=== PATIENT | female | born 1945 | race Caucasian/White ===

== ENCOUNTER 2018-06-22 08:42 | Outpatient (CLI) | payer MEDICARE, SELFPAY ==
--- NOTE | 2018-06-22 14:09 | DI.RAD_ITS ---
SYMPTOMS/DIAGNOSIS: LEFT SHOULDER PAIN, M25.512, S/P FALL IN FEBRUARY WITH WORSENING PAIN LAST 1-1/2 WEEKS LEFT SHOULDER: Five views were obtained. There are very prominent hypertrophic changes at the acromioclavicular joint. Moderate hypertrophic degenerative changes are noted at the glenohumeral joint, as well. No other focal bony or soft tissue abnormality seen.
[2018-06-22 15:22] LABS: Abs Immature Grans 0.21 k/cumm (0.0-0.09); Absolute Basophil Count 0.03 k/cumm (0.0-0.2); Absolute Eosinophil Count 0.01 k/cumm (0.0-0.7); Absolute Lymphocyte Count 1.24 k/cumm (1.2-3.4); Absolute Monocyte Count 0.15 k/cumm (0.11-0.7); Basophils % 0.3; Eosinophils % 0.1; HCT 40.1 % (36.0-46.0); HGB 13.3 g/dL (12.0-15.5); Immature Grans % 1.9; Lymphocytes % 11.1; Mean Corp. HGB Concentration 33.2 g/dL (32.0-36.0); Mean Corpuscular Hemoglobin 30.3 pg (27.0-33.0); Mean Corpuscular Volume 91.3 fL (80-95); Mean Platelet Volume 10.1 fL (8.0-11.0); Monocytes % 1.3; Neutrophils % 85.3; Platelet Count 386 x1000/uL (130-400); RBC 4.39 m/cumm (4.00-5.20); RBC Distribution Width 13.6 % (11.7-14.6); White Blood Cell Count 11.21 k/cumm (4.4-10.8)
[2018-06-22 15:24] LABS: Absolute Neutrophil Count 9.56 k/cumm (1.2-6.7)
[2018-06-22 17:04] LABS: ALT 20 U/L (12-78); AST 12 U/L (15-37); Albumin 3.8 g/dL (3.4-5.0); Alkaline Phosphatase 99 U/L (46-116); Anion Gap 14.1 mmol/L (3-11); BUN 27 mg/dL (7-18); Bilirubin, Total 0.2 mg/dL (0.2-1.0); CO2 23.9 mmol/L (21.0-32.0); CREATININE 0.79 mg/dL (0.55-1.02); Calcium 9.4 mg/dL (8.5-10.1); Chloride 100 mmol/L (98-107); Glucose 159 mg/dL (70-100); Potassium 4.4 mmol/L (3.5-5.1); Sodium 138 mmol/L (136-145); TSH (W/Ref FT4) 1.05 uIU/mL (0.358-3.74); Total Protein 7.4 g/dL (6.4-8.2)
[2018-06-23 05:16] LABS: Vitamin D 25 Total 21.7 ng/ml (30-100)
== END 2018-06-22 09:02 ==
PROVIDERS: PCP Internal Medicine; Visit Provider Internal Medicine
DX: M25.512 Pain in left shoulder (principal); M19.012 Primary osteoarthritis, left shoulder; E55.9 Vitamin D deficiency, unspecified; R07.81 Pleurodynia; R79.89 Other specified abnormal findings of blood chemistry; R52 Pain, unspecified; E03.9 Hypothyroidism, unspecified
CPT/HCPCS: 36415; 80053; 82306; 73030; 84443; 85025

== ENCOUNTER 2018-10-06 01:35 | Outpatient (CLI) | payer MEDICARE, SELFPAY ==
--- NOTE | 2018-10-06 10:52 | DI.RAD_ITS ---
SYMPTOMS/DIAGNOSIS: PAIN RT SHOULDER, M25.511 RIGHT SHOULDER: Five views were obtained. There are prominent hypertrophic degenerative changes of acromioclavicular and glenohumeral joints. No other significant bony or soft tissue abnormality seen. No evidence of a glenohumeral dislocation or fracture.
== END 2018-10-06 01:55 ==
PROVIDERS: PCP Internal Medicine; Visit Provider Internal Medicine
DX: M25.511 Pain in right shoulder (principal)
CPT/HCPCS: 73030

== ENCOUNTER 2018-10-12 01:46 | Outpatient (CLI) | payer MEDICARE, SELFPAY ==
--- NOTE | 2018-10-12 09:37 | DI.MRI_ITS ---
SYMPTOM/DIAGNOSIS: NECK PAIN, CERVICALGIA, M54.2 CERVICAL SPINE MRI: Comparison is made with exams from 2015 and 2017. T 1, T 2, STIR and FLAIR sagittal, T 2 3D sagittal and gradient echo axial sequences were performed. A small focus of high signal is again demonstrated in the anterior cervical cord at the C 6 level. No new cord lesions are identified. Degenerative disc changes are again noted at C 4-5, C 5-6 and C 6-7. At C 4-5, there is again noted to be osteophytes which project posterolaterally impinging on the right neural foramen and anterior right aspect of the thecal sac. At C 5-6, there are left laterally projecting osteophytes encroaching on the left neural foramen. At C 6-7, there are broad based osteophytes projecting laterally causing bilateral neural foraminal narrowing but no significant impingement on the anterior thecal sac. The C 2-3, C 3-4 and C 7-T 1 levels are unremarkable. Degenerative changes are also noted around the dens. There is no narrowing of the central canal at this level. IMPRESSION: 1. Small stable focus of high signal in the anterior cervical cord at the C 6 level. 2. Stable degenerative disc changes from C 4-5 through C 6-7 causing neural foraminal narrowing and some degree of central canal stenosis.
== END 2018-10-12 02:06 ==
PROVIDERS: PCP Internal Medicine; Visit Provider Internal Medicine
DX: M54.2 Cervicalgia (principal); M50.321 Other cervical disc degeneration at C4-C5 level; M50.323 Other cervical disc degeneration at C6-C7 level
CPT/HCPCS: 72141

== ENCOUNTER 2019-03-01 15:19 | Outpatient (REF) | payer MEDICARE, SELFPAY ==
--- NOTE | 2019-03-01 14:00 | SKI_PTH ---
PATIENT: Malena Limon LOC: [facility] U#:[id number] AGE/SX: 73/F ROOM: RE03/01/[address]: Kaila Keane MD : 1945 BED: DIS: 03/01/2019 SPEC #: [id number] RECD: 03/02/19 12:37 STATUS: ADRIAN REQ #: [id number] HARJIT: 03/01/19 14:[address]: Kaila Salinas DEPT: Surgical Specimen RECD BY: Consuelo George Tissues: 1 - SKIN BIOPSY(SHAVE/PUNCH) Procedures: SKIN LEVEL 4 Comments: [id number]
== END 2019-03-01 15:39 ==
LOC: LBN 15:19
PROVIDERS: PCP Internal Medicine; Visit Provider Internal Medicine
DX: L82.1 Other seborrheic keratosis (principal)
CPT/HCPCS: 88305

== ENCOUNTER 2019-08-10 13:30 | Outpatient (CLI) | payer MEDICARE, SELFPAY ==
--- NOTE | 2019-08-10 14:00 | DI.RAD_ITS ---
EXAM: XR LUMBAR SPINE COMPLETE CLINICAL HISTORY: BACK PAIN, R SI PAIN 54.9, DORSALAGIA TECHNIQUE: Five views were obtained. COMPARISON: No exams were available for comparison FINDINGS: The bones of the spine appear demineralized. There are prominent hypertrophic changes of the facet j oints, particularly in the lower lumbar spine. There appears to be a pseudospondylolisthesis of L4 o n L5, and there is also a pseudospondylolisthesis versus spondylolisthesis of L5 on S1, these are abo ut 10 percent vertebral body width and 20 percent vertebral body width, anteriorly displaced respecti vely; the changes at L5-S1 appear chronic. Chronic deformity of the superior aspect of the sacrum. There is marked loss of disc height at L4-5 and L5-S1 consistent with disc degeneration. No evidence of acute fracture. No other significant bony abnormality seen. IMPRESSION: Marked facet arthropathy of the lower lumbar spine with apparent resulting pseudospondylolisthesis of L4 on L5 and L5 on S1, chronic.
== END 2019-08-10 13:50 ==
PROVIDERS: PCP Internal Medicine; Visit Provider Internal Medicine
DX: M54.5 Low back pain (principal); M47.817 Spondylosis without myelopathy or radiculopathy, lumbosacral region; M43.17 Spondylolisthesis, lumbosacral region; M51.37 Other intervertebral disc degeneration, lumbosacral region
CPT/HCPCS: 72110

== ENCOUNTER 2019-11-22 21:08 | Emergency (ER) | payer MEDICARE, SELFPAY ==
[2019-11-22 21:23] VITALS: BP 180/92; PULSE 66; RESP 16; TEMP 36.6; O2SAT 98
--- NOTE | 2019-11-22 21:50 | ED.GENADUL_ITS ---
Discharge Plan Disposition Patient Disposition: HOME Condition: Good Discharge Details Chief Complaint: Nk/Back Pain Clinical Impression: Low back pain radiating to right leg Primary Care Provider: Darrian Casiano ED Provider: Jorge Shepherd [place] and New Rx's Prescriptions: New naproxen 375 mg tablet,delayed release (DR/EC) 375 mg PO BID Qty: 10 RF: 0 Continued esomeprazole magnesium [Nexium] 40 mg capsule,delayed release(DR/EC) 40 mg PO DAILY Qty: 30 RF: 3 Shingrix Adjuvant Component-PF Suspension 0.5 ml IM .COMPLEX Qty: 0.5 RF: 1 albuterol sulfate 90 mcg/actuation HFA aerosol inhaler 2 puff IH 6XD PRN (Reason: shortness of breath or wheezing) Qty: 18 RF: 0 cholecalciferol (vitamin D3) 125 mcg (5,000 unit) capsule 5,000 unit PO DAILY Qty: 90 RF: 3 hydrocodone-acetaminophen 5-325 mg tablet 1 tab PO BID MDD 2 pills PRN (Reason: pain, severe) Qty: 14 RF: 0 cyanocobalamin (vitamin B-12) [Vitamin B-12] 1,000 MCG tablet 1,000 mcg PO DAILY Qty: 100 RF: 4 clobetasol 0.05 % cream 1 applic Topical DAILY Qty: 60 RF: 3 levothyroxine 112 mcg tablet 112 mcg PO DAILY Qty: 90 RF: 3 tramadol 50 mg tablet 50 mg PO Q6H PRN (Reason: pain) Qty: 120 RF: 0 Discharge Instructions Instructions: Acute Low Back Pain (ED) Additional Instructions: X-ray of the right hip and pelvis unremarkable other than some arthritic change. Short course of the nonsteroidal naproxen delayed release to help with inflammation and discomfort. Hydrocodone/acetaminophen for severe pain. Contact primary care in the morning for further management and follow-up. Return to ED for neurologic changes including bladder or bowel dysfunction, numbness, weakness, inability to ambulate. Referrals: Darrian Casiano [Primary Care Provider] - Medical Decision Making Patient presenting with right lower back pain with radiation around the hip and down the leg. No specific trauma but doing moving and lifting over the last couple of days. Does have chronic pain and is prescribed Ultram by primary care. Has been prescribed Snook by primary care for exacerbations of pain. Has had worsening pain over today despite Ultram, ibuprofen and a visit to her chiropractor. There is no rash. There is no neurologic changes or deficits. She had x-ray of the LS-spine done just couple months ago which showed degenerative change of the lower lumbar spine. There is no specific injury but I will obtain right hip and pelvis x-ray given the pain that she has with movement of that lower extremity. She is almost describing neurogenic pain in the L2 dermatome. She is given IM Toradol and oral Snook. X-ray of the right hip and pelvis are negative except for degenerative change. She has not had resolution of pain but is better and actually walked to the bathroom. She reports that she is not supposed to take nonsteroidals because of GI bleed. However, that GI bleed was related to an AVM not ulcer. She reports just recently having a repeat upper endoscopy which was essentially unremarkable with no gastritis or ulceration per her report. I therefore think a short course of Naprosyn may be beneficial. She is on PPI at this time. I will also give her her to go package of Snook for use tonight. She will need to contact primary care in the morning for further management and evaluation. Instructed to return if she develops any neurologic changes, inability to walk, severe worsening pain. Medical Records Medical records reviewed: Yes I reviewed the patient's medical records. HPI General Mode of arrival: wheelchair . Date/Time Provider Initiated Documentation: 11/22/19 21:30 . Limitations to Documentation: no limitations . Information obtained by: patient, RN notes reviewed and old records reviewed . HPI Narrative: Patient presents to ED with complaint of right lower back pain radiating into her buttocks. She reports a similar issue a few months ago. She had been doing some work at her house over the last couple of days to get ready to have her first floor floors redone. She woke up this morning with pain that has become progressively worse over the course of today. She did see her chiropractor. She has taken her Ultram and even took some ibuprofen. Pain is in the low back and radiates down her buttocks as well as around the right hip. It is worse with movement. She denies abdominal pain. She denies numbness or weakness. She denies bladder or bowel symptoms. There is been no fever, cough, shortness of breath. Related Data Home Medications Medication Instructions Recorded Confirmed cyanocobalamin (vitamin B-12) 1,000 mcg PO DAILY #100 tab-cap 06/10/14 11/22/19 [Vitamin B-12] albuterol sulfate 90 mcg/actuation 2 puff IH 6XD PRN #18 gm 03/21/19 11/22/19 aerosol inhaler adjuvant AS01B (PF)vial 1 of 2 0.5 ml IM .COMPLEX #0.5 ml 06/14/19 08/07/19 esomeprazole magnesium 40 mg 40 mg PO DAILY #30 cap 06/14/19 11/22/19 capsule,delayed release clobetasol 0.05 % topical cream 1 applic TOPICAL DAILY #60 gm 07/17/19 11/22/19 cholecalciferol (vitamin D3) 125 5,000 unit PO DAILY #90 cap 08/29/19 11/22/19 mcg (5,000 unit) capsule hydrocodone 5 mg-acetaminophen 325 1 tab PO BID PRN #14 tab MDD 2 08/29/1911/21 mg tablet pills levothyroxine 112 mcg tablet 112 mcg PO DAILY #90 tab-cap NS 09/18/19 11/22/19 tramadol 50 mg tablet 50 mg PO Q6H PRN #120 tab 11/07/19 11/22/19 naproxen 375 mg PO BID #10 tab 11/22/19 Previous Rx's Medication Instructions Recorded albuterol sulfate 90 mcg/actuation 2 puff IH 6XD PRN #18 gm 03/21/19 aerosol inhaler adjuvant AS01B (PF)vial 1 of 2 0.5 ml IM .COMPLEX #0.5 ml 06/14/19 esomeprazole magnesium 40 mg 40 mg PO DAILY #30 cap 06/14/19 capsule,delayed release clobetasol 0.05 % topical cream 1 applic TOPICAL DAILY #60 gm 07/17/19 cholecalciferol (vitamin D3) 125 5,000 unit PO DAILY #90 cap 08/29/19 mcg (5,000 unit) capsule hydrocodone 5 mg-acetaminophen 325 1 tab PO BID PRN #14 tab MDD 2 08/29/19 mg tablet pills levothyroxine 112 mcg tablet 112 mcg PO DAILY #90 tab-cap NS 09/18/19 tramadol 50 mg tablet 50 mg PO Q6H PRN #120 tab 11/07/19 naproxen 375 mg PO BID #10 tab 11/22/19 Allergies Allergy/AdvReac Type Severity Reaction Status Date / Time Carbapenems Allergy Severe Verified 08/07/19 14:01 cephalexin Allergy Severe Verified 08/07/19 14:01 Cephalosporins Allergy Severe Verified 08/07/19 14:01 codeine Allergy Severe RASH Verified 08/07/19 14:01 Penicillins Allergy Severe Verified 08/07/19 14:01 Sulfa (Sulfonamide Allergy Severe Verified 08/07/19 14:01 Antibiotics) Tetracyclines Allergy Severe Verified 08/07/19 14:01 BETALACTAMS Allergy Severe Uncoded 08/07/19 14:01 General Stated Complaint: Nk/Back Pain OH: 3 Review of Systems Narrative: As documented in HPI otherwise negative as below. 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 Sister Essential hypertension Hyperlipidemia Brother Essential hypertension Grandfather Essential hypertension Heart disease Grandfather Diabetes Grandmother Stroke Grandmother No problems noted. Social History Smoking/Tobacco Use Status: Former Tobacco Use Alcohol Intake: current Alcohol Intake frequency: holidays/special occasions only Drug use: Never Do you feel safe in your relationship?: Yes Exam Narrative Exam Narrative: Vitals: Afebrile. Hypertensive but otherwise normal vitals and normal room air pulse ox. Const: WDWN elderly female in NAD lying on left side with pillow between legs. HEENT: NC/AT. Normal facial exam. Eyes: Normal conjunctiva and sclera. Neck: Supple. Trachea midline. Lungs: Normal respiratory effort. Back: No midline spinal tenderness. Minimal tenderness over right SI/pelvic region. No tenderness over right sciatic nerve. Pain with any range of motion involving right lower extremity. Neuro: A+O x 3. Normal speech, mentation. Cranial nerves II - XII grossly intact. No gross motor or sensory deficit. 5 out of 5 strength in lower extremities. No sensory deficit. No saddle anesthesia. Ext: No C/C/E. Skin: Warm and dry without rash. Course Vital Signs Vital signs: Vital Signs Temperature 97.9 F 11/22/19 21:23 Pulse 66 11/22/19 21:23 Respiratory Rate 16 11/22/19 21:23 Blood Pressure 180/92 H 11/22/19 21:23 Pulse Oximetry 98 11/22/19 21:23 Temperature 97.9 F 11/22/19 21:23 Pulse 66 11/22/19 21:23 Respiratory Rate 16 11/22/19 21:23 Blood Pressure 180/92 H 11/22/19 21:23 Blood Pressure Position Left Lateral 11/22/19 21:23 Pulse Oximetry 98 11/22/19 21:23 Oxygen Delivery Method Room Air 11/22/19 21:23 Oxygen Flow Rate 0 11/22/19 21:23 Pain Level 9 11/22/19 21:23
[2019-11-22] MEDS: Ketorolac 30 MG/ML VIAL IM (22:17)
[2019-11-22] MEDS: HYDROcodone 10/Acetaminophen 325 TAB PO (22:18)
--- NOTE | 2019-11-22 22:58 | DI.RAD_ITS ---
EXAM: XR HIP RT COMPLETE AP PELVIS INDICATION: pain/unable to bear weight. COMPARISON: No exams were available for comparison TECHNIQUE: 2D digital imaging was performed. FINDINGS: Mild bilateral narrowing of the hip joints. Mild degenerative changes in the lower lumbar spine. Sa croiliac joints and symphysis pubis are intact. Bones are normally mineralized. No acute fracture o r subluxation. The soft tissues are unremarkable. IMPRESSION: No acute fracture or dislocation. DATA REPOSITORY: RADIATION DOSE DELIVERED:
--- NOTE | 2019-11-22 23:24 | DI.VRAD_ITS ---
PROCEDURE INFORMATION: Exam: XR Right Hip with Pelvis when Performed Exam date and time: 11/22/2019 10:58 PM Age: 73 years old Clinical indication: Hip pain; Right hip; Patient HX: HX of sacrum dislocation per PT TECHNIQUE: Imaging protocol: XR Right hip with pelvis when performed. Views: 2 or 3 views. COMPARISON: No relevant prior studies available. FINDINGS: Bones/joints: Lower lumbar spine degenerative disease. Bilateral sacroiliac joints are unremarkable. Bilateral hips with mild degenerative joint space narrowing. No fracture. No dislocation. No suspicious focal bone lesions. Soft tissues: Internal pelvic soft tissues and periarticular soft tissues are unremarkable. IMPRESSION: 1. No acute traumatic disruption. 2. Bilateral hip joint with mild arthritic degeneration. 3. Lower lumbar spine degenerative disease. Dictated and Authenticated by: Percy Hardy MD. Ordering:CLEMENTE Patel MD
== END 2019-11-22 23:56 | disposition home or self-care (01) ==
PROVIDERS: Emergency Provider Emergency Medicine; PCP Family Medicine
DX: M54.16 Radiculopathy, lumbar region (principal); G89.4 Chronic pain syndrome
CPT/HCPCS: 96372; 99284; 73502; J1885; J3490

== ENCOUNTER 2020-01-02 01:33 | Outpatient (CLI) | payer MEDICARE, SELFPAY ==
--- NOTE | 2020-01-02 11:49 | DI.MAMMO_ITS ---
EXAM: MG MAMMO SCREENING CLINICAL HISTORY: screening,Z12.31 TECHNIQUE: Bilateral full field digital CC and MLO mammographic images were obtained with 3D tomosyn thesis and utilizing computer aided detection (CAD). COMPARISON: Available for comparison. FINDINGS: Masses/Architectural Distortion: None seen. Stable nodules in the upper-outer quadrant of the right b reast. Microcalcifications: No suspicious pleomorphic-type are seen. Skin Thickening/Nipple Retraction: None. IMPRESSION: 1. No significant interval change with no specific features of malignancy noted. 2. Unless there is more urgent need, screening mammography is recommended, as per [place] [place] guidelines. BI-RADS Category 1 - Negative Breast Density - Category B - Scattered areas of fibroglandular density A negative radiographic report should not delay biopsy if a dominant or clinically suspicious mass is present. Up to ten percent of cancers are not identified on mammography. A negative report may reinforce clinical impression. Adenosis and dense breasts may obscure an underlying neoplasm. False positive reports average 6 to 10%. Patient will receive a letter notifying them of these results.
== END 2020-01-02 01:53 ==
PROVIDERS: PCP Family Medicine; Visit Provider Family Medicine
DX: Z12.31 Encounter for screening mammogram for malignant neoplasm of breast (principal); N63.11 Unspecified lump in the right breast, upper outer quadrant
CPT/HCPCS: 77063; 77067

== ENCOUNTER 2020-01-09 02:34 | Outpatient (CLI) | payer MEDICARE, SELFPAY ==
[2020-01-09 14:35] LABS: ALT 24 U/L (14-59); AST 14 U/L (15-37); Albumin 3.7 g/dL (3.4-5.0); Alkaline Phosphatase 93 U/L (46-116); Anion Gap 9.7 mmol/L (3-11); BUN 16 mg/dL (7-18); Bilirubin, Total 0.2 mg/dL (0.2-1.0); CO2 25.3 mmol/L (21.0-32.0); CREATININE 0.59 mg/dL (0.55-1.02); Calcium 9.6 mg/dL (8.5-10.1); Calculated LDL 103 mg/dL (<100); Chloride 105 mmol/L (98-107); Cholesterol 173 mg/dL (<200); Glucose 98 mg/dL (74-106); HDL Cholesterol 40 mg/dL (40-60); Potassium 4.3 mmol/L (3.5-5.1); Sodium 140 mmol/L (136-145); TSH 0.75 uIU/mL (0.36-3.74); Total Protein 6.8 g/dL (6.4-8.2); Triglyceride 153 mg/dL (<150)
== END 2020-01-09 02:54 ==
PROVIDERS: PCP Family Medicine; Visit Provider Family Medicine
DX: R53.83 Other fatigue (principal); G89.4 Chronic pain syndrome; E03.9 Hypothyroidism, unspecified; J45.909 Unspecified asthma, uncomplicated
CPT/HCPCS: 36415; 80053; 80061; 84443

== ENCOUNTER → 2020-02-08 10:40 | Outpatient (BNVA) | payer MEDICARE, SELFPAY | PROVIDERS: PCP Family Medicine; Referring Provider Family Medicine; Visit Provider Physical Therapy Assistant | DX: Z12.11 Encounter for screening for malignant neoplasm of colon (principal) ==

== ENCOUNTER 2020-02-22 08:05 | Day surgery (SDC) | payer MEDICARE, SELFPAY ==
[2020-02-22 08:29] VITALS: BP 129/73; PULSE 70; RESP 18; TEMP 36.4; O2SAT 96
[2020-02-22] MEDS: Lactated Ringers 1,000 ML 80 ML IV (08:47)
--- NOTE | 2020-02-22 09:30 | BOWEL_PTH ---
PATIENT: Malena Limon LOC: [facility] U#:[id number] AGE/SX: 74/F ROOM: RE02/22/[address]: Mia Adan : 1945 BED: DIS: 02/22/2020 SPEC #: [id number] RECD: 02/22/20 12:24 STATUS: ADRIAN REQ #: [id number] HARJIT: 02/22/20 09:[address]: Mia Adan DEPT: Surgical Specimen RECD BY: Conseulo George ENTERED: 02/22/20 12:25 SP TYPE: Bowel OTHR DR: Darrian Casiano MD Tissues: 1 - BIOPSY BOWEL Procedures: GROSS AND MICRO LEVEL 4 Comments: [id number]
--- NOTE | 2020-02-22 09:45 | W.COLOREPORT ---
Date of service: 02/22/20 Time of Service: 09:45 Colonoscopy Report Date of procedure: 02/22/20 Pre-op diagnosis general: CRC screen Post-op diagnosis procedure note: other (polyp) Procedure: CE and polypectomy Surgeon: Mia Adan Anesthesia proc note operative: GETA Estimated blood loss (mL): 1 Pathology: other Disposition: same day Prep: Miralax/Dulcolax Retraction Time: 15 mins Procedure Description: After informed consent was obtained the patient was taken to the procedure room and placed in a left decubitous position. Monitors were applied and a time out was done. The patients name, date of , procedure, allergies to medications and metal in their body was reviewed. The patient was then sedated. Once sedated and comfortable a rectal exam was done. External exam was normal. Internal exam revealed a normal sphincter tone and no palpable masses. The scope was then introduced and retrofelexed. Grade I internal hemorrhoids were identified. The scope was then advanced to the cecum w/out difficulty. The TI and appendiceal orifice were identified. The prep was good. The scope was then slowly retracted over 15 minutes back into the rectum. A <5 mm polyp was removed at 40cm. The polyp was removed with a cold biting forcep No diverticula or AVMs. Patient today the scope was removed and the patient was woken up and taken back to Same day surgery in stable condition. The patient tolerated the procedure well and there were no immediate complications. Follow up: The patient should follow up in 5-10years (provided she is still healthy for anesthesia)- path pd unless they develop changes in bowel habits or other new gastrointestinal complaints.
--- NOTE | 2020-02-22 09:50 | W.PM.DSUDISC ---
Discharge Plan Discharge Details Attending Provider: Mia Adan Primary Care Provider: Darrian Casiano Home Meds and New Rx's Prescriptions: Continued esomeprazole magnesium [Nexium] 40 mg capsule,delayed release(DR/EC) 40 mg PO DAILY Qty: 30 RF: 3 Shingrix Adjuvant Component-PF Suspension 0.5 ml IM .COMPLEX Qty: 0.5 RF: 1 albuterol sulfate 90 mcg/actuation HFA aerosol inhaler 2 puff IH 6XD PRN (Reason: shortness of breath or wheezing) Qty: 18 RF: 0 cyanocobalamin (vitamin B-12) [Vitamin B-12] 1,000 MCG tablet 1,000 mcg PO DAILY Qty: 100 RF: 4 levothyroxine 112 mcg tablet 112 mcg PO DAILY Qty: 90 RF: 3 clobetasol 0.05 % cream 1 applic Topical DAILY Qty: 60 RF: 3 tramadol 50 mg tablet 50 mg PO Q6H PRN (Reason: pain) Qty: 120 RF: 2 cholecalciferol (vitamin D3) 125 mcg (5,000 unit) capsule 5,000 unit PO DAILY Qty: 90 RF: 3 naproxen 375 mg tablet,delayed release (DR/EC) 375 mg PO BID Qty: 10 RF: 0 Discontinued polyethylene glycol 3350 17 gram/dose powder 238 g PO ONCE Qty: 238 RF: 0 bisacodyl [Dulcolax (bisacodyl)] 5 mg tablet,delayed release (DR/EC) 5 mg PO ONCE Qty: 4 RF: 0 Discharge Instructions Additional Instructions: Findings:small colon polyp Follow up: will send a letter w/ results of polyp in 2-3 weeks and when to repeat the colonscopy Please call if you develop: fevers >101.5 Nausea or Vomiting Abdominal pain that is not transient DAY SURGERY UNIT POST COLONOSCOPY INSTRUCTIONS 1. Because there will be medication in your system for the next 24 hours, you may feel a little sleepy. Your coordination will be affected. Therefore: a. Do not drive or operate dangerous equipment for 24 hours. b. Do not drink alcohol beverages for 24 hours (not even beer). c. Plan to go home and rest for the day. 2. Generally there are no restrictions on your activity after a day or so has gone by, but you may feel a bit fatigued for a few days. 3 After you arrive home you may have a light meal and return to a normal diet as you can tolerate it without feeling sick to your stomach. 4. After surgery, you may feel pain or discomfort. This should be only transient, but if it persists please contact your doctor. 5. If there are any questions regarding the findings of your procedure, please feel free to contact your doctor. 6. If you are unable to contact your doctor with a problem, contact the hospital at [phone]. 7. Continue all your regular medications unless directed otherwise. I understand the above instructions and have no questions. Signature of Patient or Responsible Adult Escort Date/Time Name of Responsible Adult Escort Signature of Nurse Date/Time Activity:: No lifting over 20 pounds or strenuous activity x24 hours Equipment/Supplies:: No Equipment Needed Diet:: Small light meals x24 hours DS: Diagnosis Discharge Diagnosis (1) Adenomatous colon polyp: Status: Acute
[2020-02-22 10:10] VITALS: BP 142/72; PULSE 60; RESP 18; TEMP 36; O2SAT 99
== END 2020-02-22 10:30 | disposition home or self-care (01) ==
PROVIDERS: PCP Family Medicine; Visit Provider Surgery
PROC: 0DJD8ZZ Inspection of Lower Intestinal Tract, Via Natural or Artificial Opening Endoscopic (ICD-10-PCS; CPT 45378; principal; 2020-02-22 09:00)
DX: Z12.11 Encounter for screening for malignant neoplasm of colon (principal); D12.5 Benign neoplasm of sigmoid colon; J45.909 Unspecified asthma, uncomplicated; K21.9 Gastro-esophageal reflux disease without esophagitis
CPT/HCPCS: 45380; 88305; J2001

== ENCOUNTER → 2020-03-01 13:59 | Outpatient (BNVA) | payer MEDICARE, SELFPAY | PROVIDERS: PCP Family Medicine; Referring Provider Family Medicine; Visit Provider Surgery | DX: Z48.815 Encounter for surgical aftercare following surgery on the digestive system (principal); D12.5 Benign neoplasm of sigmoid colon | CPT/HCPCS: 99212 ==

== ENCOUNTER 2020-07-12 12:32 | Outpatient (REF) | payer MEDICARE, OTHER, SELFPAY ==
[2020-07-12 13:41] LABS: *AMPHETAMINES SCREEN URINE Negative (Negative); *BARBITURATES SCREEN URINE Negative (Negative); *BENZODIAZEPINES SCREEN URINE Negative (Negative); Cannabinoids THC Negative (Negative); Cocaine Screen,Urine Negative (Negative); METHADONE URINE SCREEN Negative (Negative); OPIATES URINE SCREEN Negative (Negative)
[2020-07-12 13:44] LABS: Tricyclic Antidepressants Negative (Negative)
[2020-07-17 19:50] LABS: O-desmethyltramadol 8559 ng/mL (Cutoff:25); Tramadol 2645 ng/mL (Cutoff:25)
== END 2020-07-12 12:33 | disposition home or self-care (01) ==
LOC: LBN 12:32
PROVIDERS: PCP Family Medicine; Visit Provider Family Medicine
DX: G89.4 Chronic pain syndrome (principal); Z79.891 Long term (current) use of opiate analgesic
CPT/HCPCS: 80307; 80373

== ENCOUNTER 2020-08-05 12:20 | Outpatient (CLI) | payer MEDICARE, OTHER, SELFPAY ==
--- NOTE | 2020-08-05 09:30 | DI.RAD_ITS ---
EXAM: XR LUMBAR SPINE COMPLETE CLINICAL HISTORY: low back pain M54.5. TECHNIQUE: 2D digital imaging was performed. COMPARISON: CR,XR XR HIP RT COMPLETE AP PELVIS from 11/22/2019 FINDINGS: There is no evidence of fracture. There is mild anterolisthesis L4 upon L5, this related to degenera tive changes in the facet joints. There is also an element of anterolisthesis of L5 upon S1. Mild d egenerative disc space narrowing at this level. Other disc spaces exhibit normal height. Mild facet degenerative changes. Sacroiliac joints appear unremarkable. There is no scoliosis. No osseous lesions. IMPRESSION: Multilevel listhesis of L4 upon L5 and L5 upon S1. There is also advanced disc space narrowing at L5-S1 level. DATA REPOSITORY: RADIATION DOSE DELIVERED:
== END 2020-08-05 12:40 ==
PROVIDERS: PCP Family Medicine; Visit Provider Emergency Medicine
DX: M43.16 Spondylolisthesis, lumbar region (principal); M51.37 Other intervertebral disc degeneration, lumbosacral region
CPT/HCPCS: 72110

== ENCOUNTER 2021-02-12 00:47 | Outpatient (CLI) | payer MEDICARE, OTHER, SELFPAY ==
[2021-02-12 11:13] LABS: Source Nasal/Nares
[2021-02-12 14:12] LABS: COVID-19 PCR Negative (Negative)
== END 2021-02-12 00:48 | disposition home or self-care (01) ==
LOC: LBO 00:47
PROVIDERS: PCP Family Medicine; Visit Provider Podiatrist
DX: Z20.822 Contact with and (suspected) exposure to COVID-19 (principal); Z01.818 Encounter for other preprocedural examination
CPT/HCPCS: 87635

== ENCOUNTER 2021-02-14 06:14 | Day surgery (SDC) | payer MEDICARE, OTHER, SELFPAY ==
[2021-02-14 06:25] VITALS: BP 125/67; PULSE 64; RESP 16; TEMP 36.4; O2SAT 96
--- NOTE | 2021-02-14 07:01 | W.PM.HP.N ---
Date of service: 02/14/21 Time of Service: 07:01 History of Present Illness History of Present Illness Chief Complaint: Symptomatic right second hammertoe Narrative: 75-year-old female with increasing discomfort associated with the right second hammertoe who desires surgical intervention and correction of deformity. [facility] Medical History Asthma Bronchospasm Calculus, kidney Chronic pain syndrome Collagenous colitis Foot pain, right Gastrointestinal bleeding UPPER GI BLEED 11/2011 SECONDARY TO Duodenal AVM Hypothyroidism Skin lesion Spondylisthesis Surgical History Appendectomy Arthroplasty of knee (~1989) bilateral History of appendectomy Replacement of total knee joint 09/02; B/L Family History Mother , 76 Personal history of malignant neoplasm MOUTH Heart disease Stroke Sister Essential hypertension Hyperlipidemia Brother Essential hypertension Lung cancer Grandfather Essential hypertension Heart disease Grandfather Diabetes Grandmother Stroke Sister No problems noted. Sister No problems noted. Sister No problems noted. Sister No problems noted. Brother No problems noted. Brother No problems noted. Brother No problems noted. Son Stroke Daughter No problems noted. Social History Smoking/Tobacco Use Status: Former Tobacco Use tobacco type: cigarettes Quit Date: 05/24/74 Tobacco: How many years used: 10 Second Hand Exposure: Yes Smoking risk assessment performed?: Yes Alcohol Intake: current Alcohol Intake frequency: a few times a week Alcohol type: beer, wine and hard liquor Drug use: Never Substance use type: does not use Household members: family Do you need help understanding health information?: Never Pets and animals: Yes Pets and animals: cat(s) and dog(s) Sexually active: No What is your relationship status?: How often do you talk on the phone with friends or family?: three or more times per week How often do you get together with friends or relatives?: three or more times per week How often do you attend tenriism or cheondoism services?: 1-3 times per year Do you belong to any clubs or organized social groups?: no Panel score (0-1 are the most socially isolated patients): 1 Evita/Advent: No preference Special evita needs: No Seatbelt use: always Helmet use: No 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 Do you feel safe at home: Yes Do you feel safe in your relationship?: Yes Meds Allergies and Home Medications Allergies Allergy/AdvReac Type Severity Reaction Status Date / Time Carbapenems Allergy Severe Skin Rash Verified 02/14/21 06:35 cephalexin Allergy Severe Skin Rash Verified 02/14/21 06:35 Cephalosporins Allergy Severe Skin Rash Verified 02/14/21 06:35 codeine Allergy Severe RASH Verified 02/14/21 06:35 Penicillins Allergy Severe Percy Verified 02/14/21 06:35 Denis Syndrome Sulfa (Sulfonamide Allergy Severe Skin Rash Verified 02/14/21 06:35 Antibiotics) Tetracyclines Allergy Severe Percy Verified 02/14/21 06:35 Denis Syndrome BETALACTAMS Allergy Severe Skin Rash Uncoded 02/14/21 06:35 Home Medications Medication Instructions Recorded Confirmed Type cyanocobalamin (vitamin B-12) 1,000 mcg PO DAILY #100 tab-cap 06/10/14 02/14/21 History [Vitamin B-12] cholecalciferol (vitamin D3) 125 5,000 unit PO DAILY #90 cap 01/22/20 02/14/21 Rx mcg (5,000 unit) capsule albuterol sulfate 90 mcg/actuation 2 puff IH 6XD PRN #18 gm 10/02/20 02/14/21 Rx aerosol inhaler levothyroxine 112 mcg tablet 112 mcg PO DAILY #90 tab-cap NS 10/09/20 02/14/21 Rx clobetasol 0.05 % topical cream 1 applic TOPICAL DAILY #60 gm 12/03/20 02/14/21 Rx celecoxib 200 mg capsule 200 mg PO DAILY #90 cap 12/24/20 02/14/21 Rx varicella-zoster glycoE [id number] 0.5 ml IM ONCE #1 ea 12/24/20 02/13/21 Rx adj(PF) 50 mcg/0.5 mL IM susp, kit tramadol 50 mg tablet 50 mg PO Q6H PRN #90 tab 02/10/21 02/14/21 Rx Exam Narrative Exam Narrative: 75-year-old female resting comfortably in no acute distress. Head is normocephalic Eyes PERRLA Hearing is adequate Uvula is midline no oral lesions noted Heart had regular rate and rhythm I detected no gallops rubs or murmurs Lung stauffer were clear Abdomen was soft, nontender Peripheral pulses minimally palpable at the ankles minus 2 out of 4 capillary fill under 3 seconds to all toes no edema Skin is grossly intact no suspicious moles or lesions Muscle groups are 5 out of 5 bilaterally Skeletal exam is remarkable for a right second hammertoe deformity with irritation noted at the PIPJ level. Semirigid contracture appreciated. Neurologically grossly intact Impressions: Symptomatic right second hammertoe Plan: Jenny is being brought to the OR for surgical repair of right second hammertoe deformity. She understands risk and complications pertaining the surgery including the potential for pain, scarring, infection, recurrence of deformity, shortening of the second toe, floating of the digit, chronic edema. No promises have been made to the final outcome of surgery. Informed consents been obtained. Results Last Vital Signs Temp 36.4 C L 02/14/21 06:25 Pulse 64 02/14/21 06:25 Resp 16 02/14/21 06:25 BP 125/67 02/14/21 06:25 Pulse Ox 96 02/14/21 06:25
[2021-02-14] MEDS: Lactated Ringers 1,000 ML 80 ML IV (07:08)
--- NOTE | 2021-02-14 07:20 | W.ANESPRE ---
General Info Date of Service Date Performed: 02/14/21 Height: 5 ft 4 in Weight: 72.1 kg Body Mass Index (BMI): 27.3 Surgical Procedure: Operation Date: 02/14/21 07:40 Proposed Procedures Side Surgeon p Arthroplasty right 2nd toe Right Evelio Bhatt DPM Actual Procedures Side Surgeon p Arthroplasty right 2nd toe Right Evelio Bhatt DPM Meds Allergies and Home Medications Allergies Allergy/AdvReac Type Severity Reaction Status Date / Time Carbapenems Allergy Severe Skin Rash Verified 02/14/21 06:35 cephalexin Allergy Severe Skin Rash Verified 02/14/21 06:35 Cephalosporins Allergy Severe Skin Rash Verified 02/14/21 06:35 codeine Allergy Severe RASH Verified 02/14/21 06:35 Penicillins Allergy Severe Percy Verified 02/14/21 06:35 Denis Syndrome Sulfa (Sulfonamide Allergy Severe Skin Rash Verified 02/14/21 06:35 Antibiotics) Tetracyclines Allergy Severe Percy Verified 02/14/21 06:35 Denis Syndrome BETALACTAMS Allergy Severe Skin Rash Uncoded 02/14/21 06:35 Home Medication Medication Instructions Recorded cyanocobalamin (vitamin B-12) 1,000 mcg PO DAILY #100 tab-cap 06/10/14 [Vitamin B-12] cholecalciferol (vitamin D3) 125 5,000 unit PO DAILY #90 cap 01/22/20 mcg (5,000 unit) capsule albuterol sulfate 90 mcg/actuation 2 puff IH 6XD PRN #18 gm 10/02/20 aerosol inhaler levothyroxine 112 mcg tablet 112 mcg PO DAILY #90 tab-cap NS 10/09/20 clobetasol 0.05 % topical cream 1 applic TOPICAL DAILY #60 gm 12/03/20 celecoxib 200 mg capsule 200 mg PO DAILY #90 cap 12/24/20 varicella-zoster glycoE vacc-[id number] 0.5 ml IM ONCE #1 ea 12/24/20 adj(PF) 50 mcg/0.5 mL IM susp, kit tramadol 50 mg tablet 50 mg PO Q6H PRN #90 tab 02/10/21 Current Visit Medications: Current Medications Generic Name Dose Route Start Last Admin Trade Name Freq PRN Reason Stop Dose Admin Sodium Chloride 500 mls @ 0 mls/hr 02/14/21 06:00 Saline 500ml Bag IV PRN PRN As Directed Clindamycin Phosphate/Dextrose 600 mg in 50 mls @ 100 mls/hr 02/14/21 06:00 Cleocin In D5w IVPB 02/14/21 16:00 PREOP RODOLFO Ringer's Solution 1,000 mls @ 80 mls/hr 02/14/21 06:00 02/14/21 07:08 IV 03/15/21 23:59 80 mls/hr INFUSION RODOLFO Administration IV Miscellaneous Supplies 1 each 02/14/21 06:00 Iv Access IV DIRECTED RODOLFO IV Miscellaneous Supplies 1 each 02/14/21 06:00 Iv Access IV 03/15/21 23:59 DIRECTED RODOLFO Povidone Iodine 0 ml 02/14/21 06:00 Povidone-Iodine Soln. 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 Trigger finger M65.30 Tubular adenoma ~02/2020 D36.9 Vitamin B 12 deficiency 06/07/14 E53.8 Lichen planus 12/04/13 L43.9 Degenerative arthritis M19.90 Cervical radiculopathy 04/09/15 M54.12 Atrophic vaginitis 06/13/15 N95.2 Status post total bilateral knee replacement Z96.653 Neck pain M54.2 Shingles B02.9 Dysphagia R13.10 Back pain M54.9 Sacro-iliac pain M53.3 Vitamin D deficiency E55.9 Chronic pain syndrome G89.4 Hypothyroidism E03.9 Asthma J45.909 Medical History Medical History Asthma Bronchospasm Calculus, kidney Chronic pain syndrome Collagenous colitis Foot pain, right Gastrointestinal bleeding UPPER GI BLEED 11/2011 SECONDARY TO Duodenal AVM Hypothyroidism Skin lesion Spondylisthesis Surgical History Surgical History Appendectomy Arthroplasty of knee (~1989) bilateral History of appendectomy Replacement of total knee joint 09/02; B/L Tobacco Smoking/Tobacco Use Status: Former Tobacco Use Tobacco: How many years used: 10 Passive smoking exposure: Yes Second hand exposure: Yes Alcohol Alcohol Intake: current Alcohol intake frequency: a few times a week Alcohol type: beer, wine and hard liquor Substance Use Substance use: Never Substance use type: does not use Vital Signs and Lab Results Vital Signs Most Recent Vital Signs in EMR: Most Recent Vital Signs Temp Pulse Resp BP Pulse Ox 36.4 C L 64 16 125/67 96 02/14/21 06:25 02/14/21 06:25 02/14/21 06:25 02/14/21 06:25 02/14/21 06:25 Lab Results Blood Type / Crossmatch: No Data to Display Complete Blood Count: No Data to Display Complete Metabolic Panel: No Data to Display Liver Function Panel: No Data to Display Coagulation Panel: No Data to Display Cardiac Panel: No Data to Display Arterial Blood Gas: No Data to Display Venous Blood Gas: No Data to Display Pancreas Panel: No Data to Display Thyroid Panel: No Data to Display Infectious Disease: Coronavirus (COVID-19)(PCR) Negative (Negative) 02/12/21 06:30 02/12/21 Coronavirus 2019 Source Nasal/Nares 02/12/21 06:30 02/12/21 Blood Cultures: No Data to Display Toxicology Panel: No Data to Display Anesthesia Assessment and Plan Anesthesia History Personal History: No History of Anesthesia Complications Family History: No Family History of Anesthesia Complications Exercise Tolerance Exercise Tolerance: Metabolic Equivalents>4 Pertinent Negatives Pertinent Negatives: No Symptoms of GERD, No Major Cardiovascular Symptoms or Complaints, No Major Pulmonary Symptoms or Complaints and No History of CVA/TIA Cardiac & Pulmonary Exam Cardiac Exam: Normal S1/S2 Heart Sounds Pulmonary Exam: Clear Bilateral Breath Sounds Airway Exam Known Difficult Airway: No Mallampati Class: 2 Mouth Opening: Normal (> 3cm) Thyromental Distance: Greater than 3 cm Neck Range of Motion: Full ROM Neck Circumference: Normal Teeth Condition: Normal Dentition and Removable Dentures/Plates Lower ASA Classification ASA Score: ASA 2 Emergency Case?: No NPO Status NPO Status: NPO Clears >2 hours, Solids >8 hours Anesthesia Plan Resuscitation Status: Full Code Anesthesia Technique: General Anesthesia Airway Planned: Natural Airway Monitors Used: Standard Monitors
[2021-02-14 07:24] VITALS: BMI 27.3
[2021-02-14] MEDS: CLINDAMYCIN 600 MG/50 ML BAG 100 MG IVPB (07:47)
[2021-02-14] MEDS: Lidocaine 1% Multi-Dose 50 ML VIAL (08:00)
[2021-02-14] MEDS: Bupivacaine 0.5% Pres-Free 30 ML VIAL (08:00)
[2021-02-14] MEDS: Dexamethasone 4 MG/ML VIAL (08:07)
--- NOTE | 2021-02-14 08:20 | W.PM.DSUDISC ---
Discharge Plan Disposition Patient Disposition: HOME Condition: Good Discharge Details Reason For Visit: Surgical repair right second hammertoe Attending Provider: Evelio Bhatt Primary Care Provider: Angie Hamm Home Meds and New Rx's Prescriptions: Continued celecoxib 200 mg capsule 200 mg PO DAILY Qty: 90 RF: 3 Shingrix (PF) 50 mcg/0.5 mL suspension for reconstitution 0.5 ml IM ONCE Qty: 1 RF: 1 clobetasol 0.05 % cream 1 applic Topical DAILY Qty: 60 RF: 3 tramadol 50 mg tablet 50 mg PO Q6H PRN (Reason: pain) Qty: 90 RF: 0 cyanocobalamin (vitamin B-12) [Vitamin B-12] 1,000 MCG tablet 1,000 mcg PO DAILY Qty: 100 RF: 4 cholecalciferol (vitamin D3) 125 mcg (5,000 unit) capsule 5,000 unit PO DAILY Qty: 90 RF: 3 albuterol sulfate 90 mcg/actuation HFA aerosol inhaler 2 puff IH 6XD PRN (Reason: shortness of breath or wheezing) Qty: 18 RF: 0 levothyroxine 112 mcg tablet 112 mcg PO DAILY Qty: 90 RF: 3 Discharge Instructions Activity:: Elevate Remove Dressings/Wound Care:: Do Not Remove Shower/Bathe:: Cover Diet:: Normal Diet Discharge Orders Discharge Orders: Discharge Order (Routine); Ordered 02/14/21 Ordered By: Evelio Bhatt DS: Diagnosis Discharge Diagnosis (1) Hammertoe of right foot: Status: Acute
--- NOTE | 2021-02-14 08:22 | ROE_ITS ---
Date of service: 02/14/21 Time of Service: 08:23 Operative Note Operative Note DATE OF PROCEDURE: 02/14/21 PRE-OP DIAGNOSIS: Right second hammertoe deformity PROCEDURE: Arthroplasty right second toe with 0.062 K wire fixation SURGEON: Evelio Bhatt Refer to Anesthesia Record, local block right second toe consisting of 9 cc 50: 50 mixture 1% lidocaine plain, 0.5% Marcaine plain ESTIMATED BLOOD LOSS: 0 PATHOLOGY: none sent TOURNIQUET TIME: 18 COMPLICATIONS: None Patient was transported to: same day Patient's condition: stable Indications: 75-year-old female with increasing pain associated with a right second hammertoe deformity opting for this surgical repair. She understands risk and complications of surgery pertaining to the potential for pain, scarring, infection, shortening of the second toe, swelling of the digit, floating of the digit, recurrence of hammertoe deformity potentially requiring revisional procedures. Informed consent been obtained no promises made to final outcome of surgery Procedure Description: Malena was brought to the operative suite placed in the supine position with a right foot prepped and draped in usual sterile podiatric fashion. The right foot was exsanguinated well-padded ankle tourniquet inflated 250 mmHg. Attention was directed to the right second toe with 2 converging semielliptical incisions were placed dorsally over the digit at the PIPJ level. The skin wedge was removed. Soft tissue mobilization was performed. A transverse tenotomy capsulotomy was performed at the PIPJ level with a #15 scalpel. The medial lateral collaterals were released and the head of proximal phalanx delivered into the wound. Degenerative changes of the articular surface of the head of the proximal phalanx and base of the middle phalanx was appreciated. With double-action bone cutting forceps the head of the proximal phalanx was resected at its surgical neck. All rough and bony edges were rasped move. The second toe was now in a rectus position although it still had a little medial drift as such a stab incision was placed dorsal medially at the second MPJ level the scalpel was advanced deep and a medial capsulotomy performed at the second MPJ. The second toe was in a more rectus and relaxed position at this time. The second toe was then stabilized with a 0.062 K wire in retrograde fashion. The wounds were copiously irrigated with normal saline. The extensor tendon was repaired over the PIPJ with simple interrupted suture 3- 0 Vicryl. The skin was then coapted with simple interrupted suture of 4-0 nylon. That includes the stab incision. 4 mg of dexamethasone phosphate was infused locally and to the superior surgical wound. Betadine ointment Xeroform gauze fluff compression dressings were applied. Tourniquet was released at approximately 18 minutes vascularity returning immediately to all toes. Debby arose from anesthetic and was transported back to the floor in good condition. Sharp and sponge counts were correct. She will be followed by myself in the office next week.
[2021-02-14 08:26] VITALS: BP 100/60; PULSE 69; RESP 16; TEMP 36; O2SAT 94
--- NOTE | 2021-02-14 08:28 | W.ANESPOSTOP ---
Postoperative Evaluation Date, Time and Location Date Performed: 02/14/21 Time Performed: 08:28 Patient Location: Day Surgery Unit Vital Signs Most Recent Imported Vital Signs: Most Recent Vital Signs Temp Pulse Resp BP Pulse Ox 36.4 C L 64 16 125/67 96 02/14/21 06:25 02/14/21 06:25 02/14/21 06:25 02/14/21 06:25 02/14/21 06:25 Most Recent Manually Entered Vital Signs: Adult Blood Pressure: 100/60 Heart Rate: 71 Respirations: 16 Oxygen Saturation (%): 97 Temperature (C): 36 C Pain Score (0-10 Scale): 0 Pain Score Most Recent Pain Score: Most Recent Pain Score Pain Level 4 02/14/21 06:25 Assessment Mental Status: Awake (Alert & Oriented to Patient Baseline) Airway and Respiratory Function: Patent airway with normal (patient baseline) respiratory exam Cardiovascular Function: Hemodynamically Stable Hydration Status: Adequately Hydrated Nausea & Vomiting: No Nausea or Vomiting Pain: Pt. Denies Any Pain Peripheral Nerve Block: Patient did not receive a nerve block
[2021-02-14 08:29] VITALS: BP 100/60; PULSE 71; RESP 16; TEMPC 36; O2SAT 97
[2021-02-14 09:07] VITALS: BP 107/62; PULSE 63; RESP 16; TEMP 36.2; O2SAT 99
== END 2021-02-14 09:25 | disposition home or self-care (01) ==
PROVIDERS: PCP Family Medicine; Visit Provider Podiatrist
PROC: (CPT 28285; principal; 2021-02-14 07:30)
DX: M20.41 Other hammer toe(s) (acquired), right foot (principal); J45.909 Unspecified asthma, uncomplicated; E03.9 Hypothyroidism, unspecified
CPT/HCPCS: 28285; J1100; J2001; J2405

== ENCOUNTER 2021-03-18 10:03 | Outpatient (CLI) | payer MEDICARE, OTHER, SELFPAY ==
--- NOTE | 2021-03-18 12:45 | DI.RAD_ITS ---
Exam(s) XR HIP RT COMPLETE AP PELVIS EXAM: XR HIP RT COMPLETE AP PELVIS INDICATION: pain of rt hip M25.551. COMPARISON: CR XR LUMBAR SPINE COMPLETE from 08/05/2020 TECHNIQUE: 2D digital imaging was performed. FINDINGS: Hip joint spaces are well maintained. There is minimal bilateral acetabular spurring. Mild spurring is seen at the SI joints. No soft tissue calcifications are visible. Severe disc space narrowing i s noted at L5-S1. IMPRESSION: Mild degenerative changes of both hips. DATA REPOSITORY: RADIATION DOSE DELIVERED:
== END 2021-03-18 10:23 ==
PROVIDERS: PCP Family Medicine; Visit Provider Physician Assistant
DX: M25.551 Pain in right hip (principal); M16.11 Unilateral primary osteoarthritis, right hip; M53.3 Sacrococcygeal disorders, not elsewhere classified
CPT/HCPCS: 73502

== ENCOUNTER → 2021-03-24 10:39 | Outpatient (BNVA) | payer MEDICARE, OTHER, SELFPAY | PROVIDERS: PCP Family Medicine; Referring Provider Family Medicine; Visit Provider Student in an Organized Health Care Education/Training Program | DX: M70.61 Trochanteric bursitis, right hip (principal); M65.342 Trigger finger, left ring finger | CPT/HCPCS: 20610; 99213; J1040 ==

== ENCOUNTER 2021-05-19 03:59 | Outpatient (CLI) | payer MEDICARE, OTHER, SELFPAY ==
[2021-05-19 19:32] LABS: Source Nasal/Nares
[2021-05-19 21:30] LABS: COVID-19 PCR Negative (Negative)
== END 2021-05-19 04:00 | disposition home or self-care (01) ==
LOC: LBO 03:59 → LBN 19:29
PROVIDERS: PCP Family Medicine; Visit Provider Student in an Organized Health Care Education/Training Program
DX: Z20.822 Contact with and (suspected) exposure to COVID-19 (principal); Z01.818 Encounter for other preprocedural examination
CPT/HCPCS: 87635

== ENCOUNTER 2021-05-20 06:21 | Day surgery (SDC) | payer MEDICARE, OTHER, SELFPAY ==
--- NOTE | 2021-05-20 06:32 | W.PM.DSUDISC ---
Documented by User: YUNI Giordano 05/20/21 06:38 Discharge Plan Disposition Patient Disposition: HOME Condition: Stable Discharge Details Reason For Visit: Left Ring Finger Trigger Finger Release Attending Provider: Balta Hidalgo Primary Care Provider: Angie Hamm Home Meds and New Rx's Prescriptions: New acetaminophen 500 mg capsule 1,000 mg PO Q8H PRN PRNQty: 15 RF: 0 hydrocodone-acetaminophen 5-325 mg tablet 1 tab PO Q6H PRNQty: 3 RF: 0 Continued celecoxib 200 mg capsule 200 mg PO DAILY Qty: 90 RF: 3 Shingrix (PF) 50 mcg/0.5 mL suspension for reconstitution 0.5 ml IM ONCE Qty: 1 RF: 1 clobetasol 0.05 % cream 1 applic Topical DAILY Qty: 60 RF: 3 tramadol 50 mg tablet 50 mg PO BID MDD 6 PRN (Reason: pain) Qty: 10 RF: 1 cyanocobalamin (vitamin B-12) [Vitamin B-12] 1,000 MCG tablet 1,000 mcg PO DAILY Qty: 100 RF: 4 cholecalciferol (vitamin D3) 125 mcg (5,000 unit) capsule 5,000 unit PO DAILY Qty: 90 RF: 3 albuterol sulfate 90 mcg/actuation HFA aerosol inhaler 2 puff IH 6XD PRN (Reason: shortness of breath or wheezing) Qty: 18 RF: 0 levothyroxine 112 mcg tablet 112 mcg PO DAILY Qty: 90 RF: 3 Discharge Instructions Stand Alone Forms: Gwen Finley Finger Release Referrals: Balta Hidalgo MD [ [facility] ST[facility]FF PHYSICIAN] - Activity:: Activity as Tolerated Remove Dressings/Wound Care:: 72 hours Shower/Bathe:: 72 hours Diet:: As Tolerated Discharge Orders Discharge Orders: Discharge Order (Routine); Ordered 05/20/21 Ordered By: Flaquita Rincon DS: Diagnosis Discharge Diagnosis (1) Trigger finger: Status: Acute Documented by User: Balta Hidalgo MD 05/20/21 07:19 Discharge Plan Disposition Patient Disposition: HOME Condition: Stable Discharge Details Reason For Visit: Left Ring Finger Trigger Finger Release Attending Provider: Balta Hidalgo Primary Care Provider: Angie Hamm Home Meds and New Rx's Prescriptions: New acetaminophen 500 mg capsule 1,000 mg PO Q8H PRN PRNQty: 15 RF: 0 hydrocodone-acetaminophen 5-325 mg tablet 1 tab PO Q6H PRNQty: 3 RF: 0 Continued celecoxib 200 mg capsule 200 mg PO DAILY Qty: 90 RF: 3 Shingrix (PF) 50 mcg/0.5 mL suspension for reconstitution 0.5 ml IM ONCE Qty: 1 RF: 1 clobetasol 0.05 % cream 1 applic Topical DAILY Qty: 60 RF: 3 tramadol 50 mg tablet 50 mg PO BID MDD 6 PRN (Reason: pain) Qty: 10 RF: 1 cyanocobalamin (vitamin B-12) [Vitamin B-12] 1,000 MCG tablet 1,000 mcg PO DAILY Qty: 100 RF: 4 cholecalciferol (vitamin D3) 125 mcg (5,000 unit) capsule 5,000 unit PO DAILY Qty: 90 RF: 3 albuterol sulfate 90 mcg/actuation HFA aerosol inhaler 2 puff IH 6XD PRN (Reason: shortness of breath or wheezing) Qty: 18 RF: 0 levothyroxine 112 mcg tablet 112 mcg PO DAILY Qty: 90 RF: 3 Discharge Instructions Stand Alone Forms: Gwen Finley Finger Release Referrals: Balta Hidalgo MD [ [facility] ST[facility]FF PHYSICIAN] - Activity:: Activity as Tolerated Remove Dressings/Wound Care:: 72 hours Shower/Bathe:: 72 hours Diet:: As Tolerated Discharge Orders Discharge Orders: Discharge Order (Routine); Ordered 05/20/21 Ordered By: Flaquita Rincon
[2021-05-20 06:37] VITALS: BP 124/70; PULSE 86; RESP 16; TEMP 36.3; O2SAT 99
[2021-05-20] MEDS: Sodium Bicarbonate 50 MEQ/50 ML VIAL (07:31)
[2021-05-20 07:38] VITALS: BP 108/62; PULSE 65; RESP 16; TEMP 36.1; O2SAT 95
--- NOTE | 2021-05-20 18:38 | W.PM.OP ---
Date of service: 05/20/21 Time of Service: 07:39 Operative Note Operative Note DATE OF PROCEDURE: 05/20/21 PRE-OP DIAGNOSIS: Left Ring Finger Trigger Finger POST-OP DIAGNOSIS: same PROCEDURE: Trigger Finger Release - Left Ring Finger SURGEON: Balta Hidalgo ANESTHESIA TYPE: Local By Surgeon Refer to Anesthesia Record ESTIMATED BLOOD LOSS: 0 PATHOLOGY: none sent TOURNIQUET TIME: 0 COMPLICATIONS: None Patient was transported to: same day Patient's condition: stable Indications: I have seen Malena in clinic for symptoms of a trigger finger. The catching, clicking, locking, and pain limited function. The diagnosis of trigger finger was evident. The symptoms had not responded to conservative measures. I discussed trigger finger release with the patient. I reviewed the risks of the procedure to include, but not limited to, bleeding, infection, pain, stiffness, incomplete release, damage to nerves or vessels, continued catching, recurrence. Despite these risks, the patient elected to proceed. Findings: There was a tightened A1 smooth which was released. The flexor tendons were inspected and the patient was able to move the finger without any catching, clicking, or locking. Procedure Description: Malena was greeted in the preoperative holding area where the correct side was identified and marked. The consent was reviewed with the patient and signed. All questions were answered. Malena was taken back to the operating room. The patient was placed into the supine position on the operating room table with the left arm on an arm board. All bony prominences were well padded. No prophylactic antibiotics were administered since this was a clean, elective hand surgical case. The left arm was then prepped with Chloraprep and draped in a standard fashion with stockinette and extremity drape. A timeout to confirm correct identity, side and site, procedure, allergies, anesthesia, and medical concerns was performed. The surgical site was marked as a longitudinal incision directly over the A1 smooth of the involved digit. This was confirmed with palpation during finger flexion. This area, overlying the metacarpal head, was then anesthetized with 1% Lidocaine. The patient tolerated this well and once the anesthetic had setup, the procedure began. A longitudinal incision was made through skin only, approximately 1cm. The deep tissues were dissected bluntly. Once the A1 smooth and flexor tendons were identified the soft tissue including neurovascular structures were retracted medially and laterally. There were no crossing structures over the A1 smooth. The proximal edge of the smooth was identified and the smooth was incised with tenotomy scissors. There was a release of the tendons once this was fully released. The tendons were then removed from the wound and inspected. Excess synovium was resected. The tendons were then returned and the patient was asked to move the finger into deep flexion and back to extension. There was no recreation of the pre-operative symptoms. The hand was then once more inspected for any A0 smooth or area of possible constriction. The wound was then irrigated and the skin was closed with a 4-0 Nylon. This was dressed with gauze and a Conform dressing. The patient tolerated the procedure well and was returned to the Same Day Surgery area in a stable condition suffering no known complication.
== END 2021-05-20 08:09 | disposition home or self-care (01) ==
PROVIDERS: PCP Family Medicine; Visit Provider Student in an Organized Health Care Education/Training Program
PROC: (CPT 26055; principal; 2021-05-20 07:30)
DX: M65.342 Trigger finger, left ring finger (principal)
CPT/HCPCS: 26055

== ENCOUNTER 2021-05-27 19:19 | Outpatient (REF) | payer OTHER, SELFPAY ==
[2021-05-27 19:29] LABS: HCT 40.1 % (36.0-46.0); HGB 12.9 g/dL (11.2-15.7); MCH 29.5 pg (27.0-33.0); MCHC 32.2 % (32.0-36.0); MCV 91.6 fL (80-95); MPV 10.9 fL (8.0-11.0); Platelet Count 330 10^3/uL (130-400); RBC 4.38 10^6/uL (3.93-5.22); RDW 13.4 % (11.7-14.6); RDW-SD 45.2 fL; WBC 8.45 10^3/uL (4.4-10.8)
[2021-05-27 20:05] LABS: ALT 22 U/L (14-59); AST 13 U/L (15-37); Albumin 3.9 g/dL (3.4-5.0); Alkaline Phosphatase 97 U/L (46-116); Anion Gap 9.8 mmol/L (3-11); BUN 23 mg/dL (7-18); Bilirubin, Total 0.5 mg/dL (0.2-1.0); CO2 26.2 mmol/L (21.0-32.0); CREATININE 0.8 mg/dL (0.55-1.02); Calcium 9.7 mg/dL (8.5-10.1); Calculated LDL 104 mg/dL (<100); Chloride 104 mmol/L (98-107); Cholesterol 186 mg/dL (<200); Glucose 95 mg/dL (74-106); HDL Cholesterol 43 mg/dL (40-60); Potassium 4.5 mmol/L (3.5-5.1); Sodium 140 mmol/L (136-145); TSH (W/Ref FT4) 0.42 uIU/mL (0.36-3.74); Triglyceride 195 mg/dL (<150); Vitamin B12 1817 pg/mL (193-986)
[2021-05-29 00:47] LABS: Vitamin D 25 Total 34.3 ng/mL (30-100)
== END 2021-05-27 19:20 | disposition home or self-care (01) ==
LOC: LBN 19:19
PROVIDERS: PCP Family Medicine; Visit Provider Family Medicine
DX: E03.9 Hypothyroidism, unspecified (principal); E53.8 Deficiency of other specified B group vitamins; E55.9 Vitamin D deficiency, unspecified; I10 Essential (primary) hypertension; M54.2 Cervicalgia; M54.50 Low back pain, unspecified
CPT/HCPCS: 80053; 80061; 82306; 85027; 82607; 84443

== ENCOUNTER → 2021-05-29 09:56 | Outpatient (BNVA) | payer OTHER, SELFPAY | PROVIDERS: PCP Family Medicine; Referring Provider Family Medicine | DX: Z47.89 Encounter for other orthopedic aftercare (principal) ==

== ENCOUNTER 2021-08-05 00:43 | Outpatient (CLI) | payer OTHER, SELFPAY ==
--- NOTE | 2021-08-05 07:30 | DI.MAMMO_ITS ---
Exam(s) MAMMO SCREENING EXAM: MAMMO SCREENING CLINICAL HISTORY: screening,z12.39 TECHNIQUE: Mammograms were interpreted according to the usual protocol including computer analysis w [employer] CAD system, tomosynthesis and C-view imaging. COMPARISON: 2011 through 2019 FINDINGS: The breasts are composed of scattered fibroglandular densities, Breast Density category B. No suspicious masses or suspicious microcalcifications are seen. No skin thickening or abnormal axillary lymph nodes are seen. There has been no significant change from prior exams. IMPRESSION: BI-RADS Category 1, Negative mammogram Yearly screening mammography is recommended. Breast Density - Category B, scattered fibroglandular densities. A negative radiographic report should not delay biopsy if a dominant or clinically suspicious mass is present. Up to ten percent of cancers are not identified on mammography. A negative report may reinforce clinical impression. Adenosis and dense breasts may obscure an underlying neoplasm. False positive reports average 6 to 10%. Patient will receive a letter notifying them of these results.
== END 2021-08-05 01:03 ==
PROVIDERS: PCP Family Medicine; Visit Provider Family Medicine
DX: Z12.31 Encounter for screening mammogram for malignant neoplasm of breast (principal)
CPT/HCPCS: 77063; 77067

== ENCOUNTER 2021-08-11 11:14 | Outpatient (REF) | payer OTHER, SELFPAY | END 2021-08-11 11:15 | disposition home or self-care (01) | LOC: LBN 11:14 | PROVIDERS: PCP Family Medicine; Visit Provider Nurse Practitioner Family | DX: R10.2 Pelvic and perineal pain (principal); R30.0 Dysuria | CPT/HCPCS: 87086 ==

== ENCOUNTER → 2021-08-27 01:35 | Outpatient (CLI) | payer OTHER, SELFPAY | PROVIDERS: PCP Family Medicine; Visit Provider Nurse Practitioner Family ==

== ENCOUNTER 2021-10-28 14:22 | Outpatient (CLI) | payer OTHER, SELFPAY ==
--- NOTE | 2021-10-28 13:45 | DI.RAD_ITS ---
Exam(s) XR SHOULDER RT COMPLETE 2+V EXAM: XR SHOULDER RT COMPLETE 2+V CLINICAL HISTORY: right shoulder pain. TECHNIQUE: 2D digital imaging was performed. Two views. COMPARISON: CR XR shoulder RT complete 2+V from 10/06/2018 FINDINGS: BONES: No acute fracture is present. No bony destructive lesion is seen. JOINTS: No dislocation present. Prominent spurring is again noted around the AC joint and at the und ersurface of the acromion. There is also prominent spurring at the greater and lesser tuberosities a nd glenohumeral joint. There is [id number] narrowing of the glenohumeral joint space. The fin dings appear stable when compared the previous exam. SOFT TISSUE: Normal. IMPRESSION: Stable degenerative changes. DATA REPOSITORY: RADIATION DOSE DELIVERED:
== END 2021-10-28 14:23 | disposition home or self-care (01) ==
LOC: DIORS 14:22
PROVIDERS: PCP Family Medicine; Referring Provider Family Medicine; Visit Provider Student in an Organized Health Care Education/Training Program
DX: M75.101 Unspecified rotator cuff tear or rupture of right shoulder, not specified as traumatic; M12.811 Other specific arthropathies, not elsewhere classified, right shoulder; M75.21 Bicipital tendinitis, right shoulder; M54.12 Radiculopathy, cervical region; M65.331 Trigger finger, right middle finger
CPT/HCPCS: 99214; 99215; 73030

== ENCOUNTER 2021-11-03 07:30 | Day surgery (SDC) | payer OTHER, SELFPAY ==
[2021-11-03] MEDS: Tropicam./Phenyleph. (1/2.5%) 5 ML BTL OD ×3 (08:17→08:40)
[2021-11-03 08:33] VITALS: BP 127/69; PULSE 64; RESP 16; TEMP 36.1; O2SAT 95
--- NOTE | 2021-11-03 08:50 | W.ANESPRE ---
General Info Date of Service Date Performed: 11/03/21 Height: 5 ft 5 in Weight: 71.8 kg Body Mass Index (BMI): 26.3 Surgical Procedure: Operation Date: 11/03/21 10:40 Proposed Procedure Side Surgeon p Cataract Extraction with IOL Implant Right Samuel Deras MD Meds Allergies and Home Medications Allergies Allergy/AdvReac Type Severity Reaction Status Date / Time Carbapenems Allergy Severe Skin Rash Verified 11/03/21 08:30 cephalexin Allergy Severe Skin Rash Verified 11/03/21 08:30 Cephalosporins Allergy Severe Skin Rash Verified 11/03/21 08:30 codeine Allergy Severe RASH Verified 11/03/21 08:30 Penicillins Allergy Severe Percy Verified 11/03/21 08:30 Denis Syndrome Sulfa (Sulfonamide Allergy Severe Skin Rash Verified 11/03/21 08:30 Antibiotics) Tetracyclines Allergy Severe Percy Verified 11/03/21 08:30 Denis Syndrome BETALACTAMS Allergy Severe Skin Rash Uncoded 11/03/21 08:30 Home Medication Medication Instructions Recorded cyanocobalamin (vitamin B-12) 1,000 mcg PO DAILY #100 tab-caps 06/10/14 1,000 mcg tablet (Vitamin B-12) cholecalciferol (vitamin D3) 125 5,000 unit PO DAILY #90 caps 01/22/20 mcg (5,000 unit) capsule albuterol sulfate 90 mcg/actuation 2 puff inhalation 6XD PRN 10/02/20 aerosol inhaler shortness of breath or wheezing #18 grams clobetasol 0.05 % topical cream 1 applic topical DAILY lichen 12/03/20 planus #60 grams celecoxib 200 mg capsule 200 mg PO DAILY #90 caps 12/24/20 acetaminophen 500 mg capsule 1,000 mg PO Q8H PRN PRN #15 caps 05/20/21 levothyroxine 112 mcg tablet 112 mcg PO DAILY #90 tab-caps 10/23/21 tramadol 50 mg tablet 50 mg PO BID PRN pain #30 tabs 10/24/21 Current Visit Medications: Current Medications Generic Name Dose Route Start Last Admin Trade Name Freq PRN Reason Stop Dose Admin Acetaminophen 1,000 mg 11/03/21 06:00 Acetaminophen 500 Mg Tab PO Q4H PRN PRN Miscellaneous Medication 0 ml 11/03/21 06:00 Prednisolone 1%, Moxifloxacin 0.5%, Nepafenac 0.1% 5ml Btl OD DIRECTED [facility] Miscellaneous Medication 0 ml 11/03/21 06:00 11/03/21 08:40 Tropicam./Phenyleph. 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 Hammertoe of right foot M20.41 Hip pain, bilateral M25.551, M25.552 Trochanteric bursitis, right hip M70.61 Digital mucinous cyst of finger of right hand M67.441 Low back pain M54.50 Rotator cuff tear arthropathy of right shoulder M75.101, M12.811 Tendonitis of long head of biceps brachii of right shoulder M75.21 Trigger middle finger of right hand M65.331 Arthritis of hand, right M19.041 Medical History Medical History (Updated 11/03/21 @ 08:26 by Mavis Islas) Bronchospasm Calculus, kidney Collagenous colitis 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 Foot pain, right Gastrointestinal bleeding UPPER GI BLEED 11/2011 SECONDARY TO Duodenal AVM Skin lesion Surgical History Surgical History Appendectomy Arthroplasty of knee (~1989) bilateral History of appendectomy Replacement of total knee joint 09/02; B/L Trigger finger (05/20/21) Status post left ring finger trigger release Tobacco Smoking/Tobacco Use Status: Former Tobacco Use Passive smoking exposure: Yes Second hand exposure: Yes Alcohol Alcohol Intake: current Alcohol intake frequency: a few times a week Alcohol type: beer, wine and hard liquor Substance Use Substance use: Never Substance use type: does not use Vital Signs and Lab Results Vital Signs Most Recent Vital Signs in EMR: Most Recent Vital Signs Temp Pulse Resp BP Pulse Ox 36.1 C L 64 16 127/69 95 11/03/21 08:33 11/03/21 08:33 11/03/21 08:33 11/03/21 08:33 11/03/21 08:33 Lab Results Blood Type / Crossmatch: No Data to Display Complete Blood Count: No Data to Display Complete Metabolic Panel: No Data to Display Liver Function Panel: No Data to Display Coagulation Panel: No Data to Display Cardiac Panel: No Data to Display Arterial Blood Gas: No Data to Display Venous Blood Gas: No Data to Display Pancreas Panel: No Data to Display Thyroid Panel: No Data to Display Infectious Disease: No Data to Display Blood Cultures: No Data to Display Toxicology Panel: No Data to Display Anesthesia Assessment and Plan Anesthesia History Personal History: No History of Anesthesia Complications Family History: No Family History of Anesthesia Complications Exercise Tolerance Exercise Tolerance: Metabolic Equivalents>4 Pertinent Negatives Pertinent Negatives: No Symptoms of GERD (Well controlled with medication ), No Major Cardiovascular Symptoms or Complaints, No Major Pulmonary Symptoms or Complaints and No History of CVA/TIA Cardiac & Pulmonary Exam Cardiac Exam: Normal S1/S2 Heart Sounds Pulmonary Exam: Clear Bilateral Breath Sounds Implantable Cardiac Device Does patient have a Pacemaker or an ICD?: No Airway Exam Known Difficult Airway: No Mallampati Class: 2 Mouth Opening: Normal (> 3cm) Thyromental Distance: Greater than 3 cm Neck Range of Motion: Full ROM Neck Circumference: Normal Teeth Condition: Normal Dentition and Removable Dentures/Plates Lower ASA Classification ASA Score: ASA 2 Emergency Case?: No NPO Status NPO Status: NPO Clears >2 hours, Solids >8 hours Anesthesia Plan Resuscitation Status: Full Code Anesthesia Technique: MAC Anesthesia Airway Planned: Natural Airway Monitors Used: Standard Monitors
[2021-11-03 08:53] VITALS: BMI 26.3
[2021-11-03] MEDS: Tetracaine 0.5% 4 ML BTL OD (09:04)
[2021-11-03] MEDS: Povidone-Iodine Ophth 30 ML BTL (09:04)
[2021-11-03] MEDS: Lidocaine 2% Jelly 6 ML SYR (09:04)
[2021-11-03] MEDS: Balanced Salt Soln.-PLUS 500 ML BAG (09:14)
[2021-11-03] MEDS: Duovisc Viscoelastic System EACH 1 EACH (09:14)
[2021-11-03 09:30] VITALS: BP 120/58; PULSE 59; RESP 16; TEMP 36.5; O2SAT 97
--- NOTE | 2021-11-03 09:32 | W.ANESPOSTOP ---
Postoperative Evaluation Date, Time and Location Date Performed: 11/03/21 Time Performed: 09:32 Patient Location: Day Surgery Unit Vital Signs Most Recent Imported Vital Signs: Most Recent Vital Signs Temp Pulse Resp BP Pulse Ox 36.1 C L 64 16 127/69 95 11/03/21 08:33 11/03/21 08:33 11/03/21 08:33 11/03/21 08:33 11/03/21 08:33 Most Recent Manually Entered Vital Signs: Adult Blood Pressure: 120/58 Heart Rate: 61 Respirations: 12 Oxygen Saturation (%): 97 Temperature (C): 36.3 C Pain Score (0-10 Scale): 0 Pain Score Most Recent Pain Score: Most Recent Pain Score Pain Level 4 11/03/21 08:33 Assessment Mental Status: Awake (Alert & Oriented to Patient Baseline) Airway and Respiratory Function: Patent airway with normal (patient baseline) respiratory exam Cardiovascular Function: Hemodynamically Stable Hydration Status: Adequately Hydrated Nausea & Vomiting: No Nausea or Vomiting Pain: Pt. Denies Any Pain Peripheral Nerve Block: Patient did not receive a nerve block
[2021-11-03 09:33] VITALS: BP 120/58; PULSE 61; RESP 12; TEMPC 36.3; O2SAT 97
--- NOTE | 2021-11-03 09:34 | W.PM.DSUDISC ---
Discharge Plan Disposition Patient Disposition: HOME Condition: Good Discharge Details Attending Provider: Samuel Deras Primary Care Provider: Angie Hamm Home Meds and New Rx's Prescriptions: No Action celecoxib 200 mg capsule 200 mg PO DAILY Qty: 90 3RF clobetasol 0.05 % cream 1 applic Topical DAILY Qty: 60 3RF Rx Instructions: Apply a small amount to vulva daily tramadol 50 mg tablet 50 mg PO BID MDD 6 PRN (Reason: pain) Qty: 30 0RF cyanocobalamin (vitamin B-12) [Vitamin B-12] 1,000 MCG tablet 1,000 mcg PO DAILY Qty: 100 cholecalciferol (vitamin D3) 125 mcg (5,000 unit) capsule 5,000 unit PO DAILY Qty: 90 3RF albuterol sulfate 90 mcg/actuation HFA aerosol inhaler 2 puff IH 6XD PRN (Reason: shortness of breath or wheezing) Qty: 18 0RF levothyroxine 112 mcg tablet 112 mcg PO DAILY Qty: 90 3RF Rx Instructions: Brand name Synthroid medically necessary acetaminophen 500 mg capsule 1,000 mg PO Q8H PRN PRNQty: 15 0RF Discharge Instructions Stand Alone Forms: Post-op Topical Cataract, Jan Mixon (DSU) Discharge Orders Discharge Orders: Discharge Order (Routine); Ordered 11/03/21 Ordered By: Samuel Deras DS: Diagnosis Discharge Diagnosis (1) Cortical cataract of right eye: Status: Resolved (2) Posterior subcapsular age-related cataract, right eye: Status: Resolved (3) Nuclear sclerotic cataract of right eye: Status: Resolved
--- NOTE | 2021-11-03 09:35 | W.PM.OP ---
Date of service: 11/03/21 Time of Service: 09:35 Operative Note Operative Note DATE OF PROCEDURE: 11/03/21 PRE-OP DIAGNOSIS: Nuclear/cortical/posterior subcapsular cataract, right eye POST-OP DIAGNOSIS: same PROCEDURE: Cataract extraction using phacoemulsification with intraocular lens implant, right eye SURGEON: Samuel Deras ANESTHESIA TYPE: Local By Surgeon and MAC Refer to Anesthesia Record ESTIMATED BLOOD LOSS: 0 PATHOLOGY: none sent COMPLICATIONS: None Patient was transported to: same day Patient's condition: stable Implants: Denis & Denis/DEVI Tecnis [id number] Indications: Progressive visual loss due to cataract, right eye Procedure Description: CATARACT SURGERY OPERATIVE REPORT PREOPERATIVE DIAGNOSIS: 1. Nuclear/cortical/posterior subcapsular cataract, right eye POSTOPERATIVE DIAGNOSIS: Same OPERATION: 1. Cataract extraction using phacoemulsification with posterior chamber intraocular lens implant, right eye. 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 The option of cataract surgery was offered to the patient and she felt she was symptomatic at that she wished to proceed. PROCEDURE: The correct surgical eye was identified and marked as the right eye and the pupil was dilated in the preoperative area using mydriatics and cycloplegics. The dilated pupil size was 6.5 mm. She elected to proceed without oral sedation. The patient was brought to the operating room where cardiopulmonary monitoring was instituted and surgical time-out was performed, confirming the correct operative eye and IOL power. Topical anesthesia was administered and ophthalmic povidone-iodine 5% was instilled into the conjunctival fornices. Lidocaine gel was applied to the cornea and the crescencio-ocular area was prepped with Betadine 10% solution and draped in the usual sterile fashion for intraocular surgery, including an aperture drape. A Tegaderm transparent film dressing was cut in half and used to cover the lashes and lid margins. Care was taken to sequester the lashes and lid margins under the Tegaderm dressing. A lid speculum was placed between the lids of the operative eye and the Esteban [employer] Revalia operating microscope was maneuvered into position. Mario scissors were then used to make a conjunctival buttonhole approximately 6mm posterior to the limbus in the inferonasal quadrant. Blunt dissection was carried out to expose bare sclera, and a blunt-tipped sub-tenon?s anesthesia cannula was introduced and passed posteriorly along the globe where non-preserved plain lidocaine was injected into posterior sub-Tenon?s space. A sideport knife was used to make a paracentesis port inferotemporally. Intraocular phenylephrine/lidocaine was injected into the anterior chamber. The anterior chamber was filled with viscoelastic. A 2.4mm keratome knife was used to construct a 2-plane near-clear corneal tunnel extending 2.0mm into clear cornea superiortemporally. A flap was raised on the anterior capsule and capsulorhexis forceps were used to complete a continuous curvilinear capsulorhexis of 5.0 mm. Balanced salt solution was then used to perform cortical cleaving hydrodissection and nuclear hydrodelineation until the lens could be freely rotated within the capsular bag. The lens nucleus was then disassembled and removed within the capsular bag and iris plane using phacoemulsification. Residual cortical material was removed using the I/A handpiece. The posterior capsule was carefully polished to remove as much residual lens epithelial cells as safely possible. The capsular bag was then inflated and the anterior chamber deepened with viscoelastic. The lens implant described above was inserted into the capsular bag using the DEVI [employer] Injector. A Kuglen hook was used to dial the IOL into position. Residual viscoelastic was then removed first from posterior to the IOL, then from the anterior chamber using the I/A handpiece. The lens implant was noted to center nicely within the capsular bag. The incisions were stromally hydrated, and the anterior chamber was reformed using BSS. Then 0.5cc of moxifloxacin 1.0mg/ml were injected into the capsular bag and anterior chamber. The incisions were checked with a Weck spear and found to be secure. Several drops of ophthalmic povidone-iodine 5% were then applied to the eye followed by two drops of Imprimis combination prednisolone/moxifloxacin/nepafenac solution. The drapes were removed and a clear plastic protective eye shield was placed over the eye. The patient was then returned to Same Day Surgery in stable condition.
== END 2021-11-03 10:03 | disposition home or self-care (01) ==
PROVIDERS: PCP Family Medicine; Visit Provider Ophthalmology
PROC: (CPT 66984; principal; 2021-11-03 10:30)
DX: H25.041 Posterior subcapsular polar age-related cataract, right eye (principal); E03.9 Hypothyroidism, unspecified; D53.8 Other specified nutritional anemias
CPT/HCPCS: 66984; V2632

== ENCOUNTER 2021-11-12 01:29 | Outpatient (CLI) | payer OTHER, SELFPAY ==
--- NOTE | 2021-11-12 07:15 | DI.CT_ITS ---
Exam(s) CT UPPER EXTREMITY RT WO EXAM: CT UPPER EXTREMITY RT WO CLINICAL HISTORY: surgery planning, ARTHRITIS RT GLENOHUMERAL JOINT, OA RT SHOULDER. TECHNIQUE: Imaging Protocol: Axial computed tomography images with coronal and sagittal reformatted images were created and reviewed. COMPARISON: CR XR SHOULDER RT COMPLETE 2+V from 10/28/2021 FINDINGS: The examination was performed for pre diagnostic surgical planning. Bones: The osseous structures and articular surfaces are intact. Bony alignment is satisfactory. N o cellulitic or osteomyelitic changes are identified. Moderately severe degenerative changes are see n at the glenohumeral joint with joint space narrowing and periarticular spurring. There are moderat e degenerative changes seen at the acromioclavicular joint. No lytic or sclerotic lesions are identi fied. Soft Tissues: There is a 5 mm nodule in the right upper lobe. IMPRESSION: 1. 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 2. 5 mm nodule in the right upper lobe. In low risk patients, optional follow-up CT scan in 12 month s may be obtained. In high risk patients (history of smoking or other risk factors), an optional CT scan in 12 months may be obtained. (Dionte et al, 2017). RADIATION DOSE DELIVERED: 677.98mGy.cm Total DLP 677.98mGy.cm Total DLP DATA REPOSITORY: All CT scans at this facility are submitted to the National Radiology Data Registry (NRDR) Dose Index Registry (DIR) with the [employer] (ACR). RADIATION OPTIMIZATION: All CT scans at this facility use at least one of these dose optimization te chniques: automated exposure control; mA and/or kV adjustment per patient size (includes targeted exa ms where dose is matched to clinical indication); or iterative reconstruction.
== END 2021-11-12 01:49 ==
PROVIDERS: PCP Family Medicine; Visit Provider Student in an Organized Health Care Education/Training Program
DX: M19.011 Primary osteoarthritis, right shoulder (principal); R91.1 Solitary pulmonary nodule
CPT/HCPCS: 73200

== ENCOUNTER 2021-11-17 08:51 | Day surgery (SDC) | payer OTHER, SELFPAY ==
[2021-11-17 09:15] VITALS: BP 112/69; PULSE 65; RESP 16; TEMP 36.4; O2SAT 98
[2021-11-17] MEDS: Tropicam./Phenyleph. (1/2.5%) 5 ML BTL OS ×3 (09:32→09:46)
--- NOTE | 2021-11-17 10:08 | ANES.PREOP_ITS ---
General Info Date of Service Date Performed: 11/17/21 Height: 5 ft 5 in Weight: 71.9 kg Body Mass Index (BMI): 26.4 Surgical Procedure: Operation Date: 11/17/21 11:40 Proposed Procedure Side Surgeon p Cataract Extraction with IOL Implant Left Samuel Deras MD Meds Allergies and Home Medications Allergies Allergy/AdvReac Type Severity Reaction Status Date / Time Carbapenems Allergy Severe Skin Rash Verified 11/17/21 09:25 cephalexin Allergy Severe Skin Rash Verified 11/17/21 09:25 Cephalosporins Allergy Severe Skin Rash Verified 11/17/21 09:25 codeine Allergy Severe RASH Verified 11/17/21 09:25 Penicillins Allergy Severe Percy Verified 11/17/21 09:25 Denis Syndrome Sulfa (Sulfonamide Allergy Severe Skin Rash Verified 11/17/21 09:25 Antibiotics) Tetracyclines Allergy Severe Percy Verified 11/17/21 09:25 Denis Syndrome BETALACTAMS Allergy Severe Skin Rash Uncoded 11/17/21 09:25 Home Medication Medication Instructions Recorded cyanocobalamin (vitamin B-12) 1,000 mcg PO DAILY #100 tab-caps 06/10/14 1,000 mcg tablet (Vitamin B-12) cholecalciferol (vitamin D3) 125 5,000 unit PO DAILY #90 caps 01/22/20 mcg (5,000 unit) capsule albuterol sulfate 90 mcg/actuation 2 puff inhalation 6XD PRN 10/02/20 aerosol inhaler shortness of breath or wheezing #18 grams clobetasol 0.05 % topical cream 1 applic topical DAILY lichen 12/03/20 planus #60 grams celecoxib 200 mg capsule 200 mg PO DAILY #90 caps 12/24/20 acetaminophen 500 mg capsule 1,000 mg PO Q8H PRN PRN #15 caps 05/20/21 levothyroxine 112 mcg tablet 112 mcg PO DAILY #90 tab-caps 10/23/21 tramadol 50 mg tablet 50 mg PO BID PRN pain #30 tabs 10/24/21 Current Visit Medications: Current Medications Generic Name Dose Route Start Last Admin Trade Name Freq PRN Reason Stop Dose Admin Acetaminophen 1,000 mg 11/17/21 06:00 Acetaminophen 500 Mg Tab PO Q4H PRN PRN Miscellaneous Medication 0 ml 11/17/21 06:00 Prednisolone 1%, Moxifloxacin 0.5%, Nepafenac 0.1% 5ml Btl OS DIRECTED [facility] Miscellaneous Medication 0 ml 11/17/21 06:00 11/17/21 09:46 Tropicam./Phenyleph. 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 Hammertoe of right foot M20.41 Hip pain, bilateral M25.551, M25.552 Trochanteric bursitis, right hip M70.61 Digital mucinous cyst of finger of right hand M67.441 Low back pain M54.50 Rotator cuff tear arthropathy of right shoulder M75.101, M12.811 Tendonitis of long head of biceps brachii of right shoulder M75.21 Trigger middle finger of right hand M65.331 Arthritis of hand, right M19.041 Cortical cataract of right eye H26.9 Nuclear sclerotic cataract of right eye H25.11 Posterior subcapsular age-related cataract, right eye H25.041 Pulmonary nodule R91.1 Medical History Medical History Bronchospasm Calculus, kidney Collagenous colitis 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 Foot pain, right Gastrointestinal bleeding UPPER GI BLEED 11/2011 SECONDARY TO Duodenal AVM Skin lesion Surgical History Surgical History Appendectomy Arthroplasty of knee (~1989) bilateral History of appendectomy Hx of cataract surgery Replacement of total knee joint 09/02; B/L Trigger finger (05/20/21) Status post left ring finger trigger release Tobacco Smoking/Tobacco Use Status: Former Tobacco Use Passive smoking exposure: Yes Second hand exposure: Yes Alcohol Alcohol Intake: current Alcohol intake frequency: a few times a week Alcohol type: beer, wine and hard liquor Substance Use Substance use: Never Substance use type: does not use Vital Signs and Lab Results Vital Signs Most Recent Vital Signs in EMR: Most Recent Vital Signs Temp Pulse Resp BP Pulse Ox 36.4 C L 65 16 112/69 98 11/17/21 09:15 11/17/21 09:15 11/17/21 09:15 11/17/21 09:15 11/17/21 09:15 Lab Results Blood Type / Crossmatch: No Data to Display Complete Blood Count: No Data to Display Complete Metabolic Panel: No Data to Display Liver Function Panel: No Data to Display Coagulation Panel: No Data to Display Cardiac Panel: No Data to Display Arterial Blood Gas: No Data to Display Venous Blood Gas: No Data to Display Pancreas Panel: No Data to Display Thyroid Panel: No Data to Display Infectious Disease: No Data to Display Blood Cultures: No Data to Display Toxicology Panel: No Data to Display Anesthesia Assessment and Plan Anesthesia History Personal History: No History of Anesthesia Complications Family History: No Family History of Anesthesia Complications Exercise Tolerance Exercise Tolerance: Metabolic Equivalents>4 Pertinent Negatives Pertinent Negatives: No Major Cardiovascular Symptoms or Complaints and No Major Pulmonary Symptoms or Complaints Cardiac & Pulmonary Exam Cardiac Exam: Normal S1/S2 Heart Sounds Pulmonary Exam: Clear Bilateral Breath Sounds Implantable Cardiac Device Does patient have a Pacemaker or an ICD?: No Airway Exam Known Difficult Airway: No Mallampati Class: 2 Mouth Opening: Normal (> 3cm) Thyromental Distance: Greater than 3 cm Neck Range of Motion: Full ROM Neck Circumference: Normal Teeth Condition: Normal Dentition and Removable Dentures/Plates Lower ASA Classification ASA Score: ASA 2 Emergency Case?: No NPO Status NPO Status: NPO Clears >2 hours, Solids >8 hours Anesthesia Plan Resuscitation Status: Full Code Anesthesia Technique: MAC Anesthesia Airway Planned: Natural Airway Monitors Used: Standard Monitors
[2021-11-17 10:20] VITALS: BMI 26.4
[2021-11-17] MEDS: Lidocaine 2% Jelly 6 ML SYR (10:31)
[2021-11-17] MEDS: Tetracaine 0.5% 4 ML BTL OS (10:31)
[2021-11-17] MEDS: Balanced Salt Soln.-PLUS 500 ML BAG (10:43)
[2021-11-17] MEDS: Duovisc Viscoelastic System EACH 1 EACH (10:43)
[2021-11-17] MEDS: Povidone-Iodine Ophth 30 ML BTL (10:45)
[2021-11-17 11:00] VITALS: BP 108/73; PULSE 67; RESP 18; TEMP 36.5; O2SAT 96
--- NOTE | 2021-11-17 11:04 | W.PM.DSUDISC ---
Discharge Plan Disposition Patient Disposition: HOME Condition: Good Discharge Details Attending Provider: Samuel Deras Primary Care Provider: Angie Hamm Home Meds and New Rx's Prescriptions: No Action celecoxib 200 mg capsule 200 mg PO DAILY Qty: 90 3RF clobetasol 0.05 % cream 1 applic Topical DAILY Qty: 60 3RF Rx Instructions: Apply a small amount to vulva daily tramadol 50 mg tablet 50 mg PO BID MDD 6 PRN (Reason: pain) Qty: 30 0RF cyanocobalamin (vitamin B-12) [Vitamin B-12] 1,000 MCG tablet 1,000 mcg PO DAILY Qty: 100 cholecalciferol (vitamin D3) 125 mcg (5,000 unit) capsule 5,000 unit PO DAILY Qty: 90 3RF albuterol sulfate 90 mcg/actuation HFA aerosol inhaler 2 puff IH 6XD PRN (Reason: shortness of breath or wheezing) Qty: 18 0RF levothyroxine 112 mcg tablet 112 mcg PO DAILY Qty: 90 3RF Rx Instructions: Brand name Synthroid medically necessary acetaminophen 500 mg capsule 1,000 mg PO Q8H PRN PRNQty: 15 0RF Discharge Instructions Stand Alone Forms: Post-op Topical Cataract, Jan Mixon (DSU) Discharge Orders Discharge Orders: Discharge Order (Routine); Ordered 11/17/21 Ordered By: Samuel Deras DS: Diagnosis Discharge Diagnosis (1) Cortical cataract of left eye: Status: Resolved (2) Nuclear sclerotic cataract of left eye: Status: Resolved (3) Posterior subcapsular age-related cataract of left eye: Status: Resolved
--- NOTE | 2021-11-17 11:07 | ROE_ITS ---
Date of service: 11/17/21 Time of Service: 11:07 Operative Note Operative Note DATE OF PROCEDURE: 11/17/21 PRE-OP DIAGNOSIS: Nuclear/cortical/posterior subcapsular cataract, left eye POST-OP DIAGNOSIS: same PROCEDURE: Cataract extraction using phacoemulsification with toric intraocular lens implant, left eye SURGEON: Samuel Deras ANESTHESIA TYPE: Local By Surgeon and MAC Refer to Anesthesia Record PATHOLOGY: none sent COMPLICATIONS: None Patient was transported to: same day Patient's condition: stable Implants: Denis and Denis Vision / DEVI Tecnis DIU Toric Intraocular Lens Indications: Progressive decreased vision due to cataract, left eye, with corneal astigmatism Procedure Description: CATARACT SURGERY OPERATIVE REPORT PREOPERATIVE DIAGNOSIS: Nuclear/cortical/posterior subcapsular cataract, left eye astigmatism, left eye POSTOPERATIVE DIAGNOSIS: Same OPERATION: Cataract extraction using phacoemulsification with posterior chamber toric intraocular lens implant, left eye. IOL: IOL Fretted Instruments Inspector/Model: J&J Vision / DEVI Tecnis [id number] IOL Power: + 9.5 diopters sphere, +2.25 cylinder IOL Serial Number: [id number] Optic Diameter: 6.0mm Haptic/Overall Diameter: 13.00mm PHACO INFO: Esteban Centurion Vision System with OZil and Active Fluidics Cumulative Dispersed Energy (CDE): 10.80 seconds SURGEON: Samuel Deras MD, VLADIMIR ANESTHESIA: Monitored Anesthesia Care (MAC), with local sub-tenon's anesthetic infiltration COMPLICATIONS: None SPECIMENS: None INDICATIONS FOR PROCEDURE: The patient is a 75-year-old lady with history of myopia who has been wearing spectacles for monovision. Right eye near, left eye distance. She has a significant amount of a stigmatism in both eyes. She developed significant bilateral nuclear/cortical/posterior subcapsular cataract. She underwent cataract surgery in the right eye, postoperative refractive target for near without astigmatic correction. She has done well postoperatively with excellent near visual acuity. She now presents for cataract surgery in the left eye, targeted for distance, with a toric intraocular lens implant. The option of cataract surgery was offered to the patient and she wished to proceed. PROCEDURE: The correct surgical eye was identified and marked as the left eye and the pupil was dilated in the preoperative area using mydriatics and cycloplegics. The dilated pupil size was 6.5 mm. With the patient in the seated position, topical anesthetic was applied and a surgical marker was used to pranay the limbus at 6:00. A Surgilum Robomarker was then used to pranay the 0/180 degree reference axis. She elected to proceed without oral sedation. The patient was brought to the operating room where cardiopulmonary monitoring was instituted and surgical time-out was performed, confirming the correct operative eye and IOL power. Topical anesthesia was administered and ophthalmic povidone-iodine 5% was instilled into the conjunctival fornices. Lidocaine gel was applied to the cornea and the crescencio-ocular area was prepped with Betadine 10% solution and draped in the usual sterile fashion for intraocular surgery, including an aperture drape. A Tegaderm transparent film dressing was cut in half and used to cover the lashes and lid margins. Care was taken to sequester the lashes and lid margins under the Tegaderm dressing. A lid speculum was placed between the lids of the operative eye and the Esteban LuxOR Revaliat operating microscope was maneuvered into position. Mario scissors were then used to make a conjunctival buttonhole approximately 6mm posterior to the limbus in the inferonasal quadrant. Blunt dissection was carried out to expose bare sclera, and a blunt-tipped sub-tenon?s anesthesia cannula was introduced and passed posteriorly along the globe where non- preserved plain lidocaine was injected into posterior sub-Tenon?s space. A corneal ring gauge and axis marker were then used to pranay the 009 degree position for the main phaco incision, and the 99/189 degree axis for alignment of the toric IOL. A sideport knife was used to make a paracentesis port superiorly. Intraocular phenylephrine/lidocaine was injected into the anterior chamber. The anterior chamber was then filled with viscoelastic. A 2.4mm keratome knife was used to create a half-thickness groove at the limbus and then to construct a three-plane near-clear corneal tunnel extending 2.0mm into clear cornea at the 009 degree axis. . A flap was raised on the anterior capsule and capsulorhexis forceps were used to complete a continuous curvilinear capsulorhexis of 5.0 mm. Balanced salt solution was then used to perform cortical cleaving hydrodissection and nuclear hydrodelineation until the lens could be freely rotated within the capsular bag. The lens nucleus was then disassembled and removed within the capsular bag and iris plane using phacoemulsification. Residual cortical material was removed using the 45-degree angled silicone I/A tip with 0.3mm port. The posterior capsule was carefully polished to remove as much residual lens epithelial cells as safely possible. The capsular bag was then inflated and the anterior chamber deepened with viscoelastic. The lens implant described above was inserted into the capsular bag using the DEVI Chenega Injector. A Kuglen hook was used to dial the IOL into position, about 10 degrees counterclockwise of its final alignment. Residual viscoelastic was then removed first from posterior to the IOL, then from the anterior chamber using the I/A handpiece. The I/A handpiece was then used to dial the IOL to the target axis. The lens implant was noted to center nicely within the capsular bag, with the toric IOL ornelas aligned at the 99/189 degree axis. The incisions were stromally hydrated, and the anterior chamber was reformed using BSS. Then 0.5cc of moxifloxacin 1.0mg/ml were injected into the capsular bag and anterior chamber. The incisions were checked with a Weck spear and found to be secure. Several drops of ophthalmic povidone-iodine 5% were then applied to the eye followed by two drops of Imprimis combination prednisolone/moxifloxacin/nepafenac solution. The drapes were removed and a clear plastic protective eye shield was placed over the eye. The patient was then returned to Same Day Surgery in stable condition.
--- NOTE | 2021-11-17 11:40 | W.ANESPOSTOP ---
Postoperative Evaluation Date, Time and Location Date Performed: 11/17/21 Time Performed: 11:04 Patient Location: Day Surgery Unit Vital Signs Most Recent Imported Vital Signs: Most Recent Vital Signs Temp Pulse Resp BP Pulse Ox 36.5 C 67 18 108/73 96 11/17/21 11:00 11/17/21 11:00 11/17/21 11:00 11/17/21 11:00 11/17/21 11:00 Pain Score Most Recent Pain Score: Most Recent Pain Score Pain Level 0 11/17/21 11:00 Assessment Mental Status: Awake (Alert & Oriented to Patient Baseline) Airway and Respiratory Function: Patent airway with normal (patient baseline) respiratory exam Cardiovascular Function: Hemodynamically Stable Hydration Status: Adequately Hydrated Nausea & Vomiting: No Nausea or Vomiting Pain: Pt. Denies Any Pain Peripheral Nerve Block: Patient did not receive a nerve block
== END 2021-11-17 11:22 | disposition home or self-care (01) ==
LOC: SUR 08:51
PROVIDERS: PCP Family Medicine; Visit Provider Ophthalmology
PROC: (CPT 66984; principal; 2021-11-17 11:30)
DX: H25.042 Posterior subcapsular polar age-related cataract, left eye (principal); J45.909 Unspecified asthma, uncomplicated; E55.9 Vitamin D deficiency, unspecified
CPT/HCPCS: 66984; V2632

== ENCOUNTER 2021-11-18 09:52 | Outpatient (CLI) | payer OTHER, SELFPAY ==
--- NOTE | 2021-11-18 09:45 | RT.EKG_ITS ---
APPROVED REPORT Exam: Resting ECG Reason for Exam: Pre-operative Patient Location: O HR:71 bpm ECG Measurements Heart Rate 71 AXIS TN 104 P 52 QRSd 89 QRS 13 QT 380 T 56 QTc 414 Conclusion Sinus rhythm...normal P axis, V-rate 60- 99 Poor R wave progression, possible Anterior infarct, old...Q >40mS, abnormal ST-T, V2-V5
== END 2021-11-18 09:53 | disposition home or self-care (01) ==
LOC: DI.CM 09:55
PROVIDERS: PCP Family Medicine; Visit Provider Family Medicine
DX: Z01.810 Encounter for preprocedural cardiovascular examination (principal)
CPT/HCPCS: 93010

== ENCOUNTER → 2021-12-01 02:16 | Outpatient (CLI) | payer OTHER, SELFPAY ==
--- NOTE | 2021-12-01 15:00 | DI.US_ITS ---
APPROVED REPORT EXAM: Comprehensive 2D, Doppler, and color-flow Echocardiogram Patient Location: Out-Patient Violin Repairer: Sandra Lam RDCS (AE) Indications: Abnormal pre op EKG Other Information Study Quality: Good Conclusion Normal left ventricular wall thickness and chamber size. Estimated ejection fraction is 55 to 60%. Wall motion is normal Normal right ventricular size and systolic function Both atria are normal in size There is no structural or hemodynamically significant valvular disease Estimated right ventricular systolic pressure is 25 mmHg Wall motion Left Ventricle The left ventricle is normal size. The left ventricular systolic function is normal. The left ventric ular ejection fraction is within the normal range. There is normal left ventricular wall thickness. T here is normal LV segmental wall motion. There is no ventricular septal defect visualized. LVEF is 58 %. Right Ventricle The right ventricle is normal size. The right ventricular systolic function is normal. The RVSP is 25 .0 mmHg. Atria The left atrium size is normal. The right atrium size is normal. The interatrial septum is intact wit h no evidence for an atrial septal defect. Aortic Valve The aortic valve is normal in structure. Aortic valve is trileaflet. There is no aortic valvular sten osis. No aortic regurgitation is present. Mitral Valve The mitral valve is normal in structure. No evidence of mitral valve stenosis. Trace to mild mitral r egurgitation. Tricuspid Valve The tricuspid valve is normal in structure. There is no tricuspid valve stenosis. Trace to mild tricu spid regurgitation. Pulmonic Valve The pulmonary valve is normal in structure. There is no pulmonic valvular stenosis. There is no pulmo marleni valvular regurgitation. Great Vessels The aortic root is normal in size. The ascending aorta is normal in size. IVC is normal in size and c ollapses >50% with inspiration. Pericardium There is no pericardial effusion. 2D Dimensions IVSD d PLAX 1.04 cm F: 0.6-1.0 LV Vol A2C d MOD 77.8 mL LVPW d PLAX 1.01 cm F: 0.6 - 1.0 LV Vol A4C d MOD 79.0 mL LVID d PLAX 4.51 cm F: 3.8 - 5.2 LA vol/ BSA A2C s A-L 22.6 mL/m2 LVDs 3.00 cm F: 2.2 - 3.5 LA vol/ BSA A4C s A-L 16.5 mL/m2 Ao Root d 2.85 cm F: 2.7 - 3.3 LA Vol/ BSA Biplane s A-L 19.4 mL/m2 RA Area A4C 12.92 cm2 LA Area A4C s MOD 12.60 cm2 RA Vol/ BSA A4C s A-L 19.2 mL/m2 LA Area A2C s MOD 14.81 cm2 Ao Asc Diam d 3.30 cm F: 2.3 - 3.1 LV EF A4C MOD 56.7 % LV EF Teichholz 61.1 % LV EF A2C MOD 58.2 % LVEF (Rosas's) 57.46 % F: 54 - 74 LV EF Biplane MOD 57.5 % LV Volume 61.69 mL F: 46 - 106 SV 45.34 mL LV Volume Index 34.85 mL/m2 F: 29 - 61 SV Index 25.55 mL/m2 LV Vol Biplane MOD 78.9 mL FS 32.55 % LV Diastology MV E' medial 0.066 (>0.07 m/s) E/A Ratio 0.6 LV E/e MED 7.95 (<14) MV E Vmax 0.53 (0.4-1.3 m/s) MV E' lateral 0.075 (>0.1 m/s) MV A Vmax 0.85 (0.4-1.3 m/s) LV E/e LAT 7.05 (<14) MV E/A Ratio 0.59 MV E/E' medial 7.98 MV E/E' lateral 7.06 Aortic Valve LVOT Area 3.11 cm2 AoV Area Vmax 2.47 cm2 LVOT Vmax 1.02 m/s AoV Area/ BSA (Vmax) 1.39 cm2/m2 LVOT Mean Basil. 0.64 m/s KIRSTIN Mean Basil. 2.40 cm2 LVOT Peak Grad 4.1 mmHg KIRSTIN Mean Basil. Index 1.35 cm2/m2 LVOT Mean Grad 1.9 mmHg LVOT VTI 0.200 m LVOT Diam s 1.95 cm AoV Vmax 1.28 m/s Velocity Ratio 0.79 AoV Mean Basil. 0.83 m/s AoV Peak Grad 6.6 mmHg LVOT SV 62.28 mL AoV Mean Grad 3.2 mmHg AoV VTI 0.214 m AoV Area VTI 2.91 cm2 AoV Area/ BSA (VTI) 1.64 cm/m2 Mitral Valve MV DT 481 (160-240 msec) MV PHT 140 msec MV Area PHT 1.58 cm2 MV VTI 0.273 m MV Area VTI 2.28 (4.0-6.0 cm2) Pulmonary Valve PV Vmax 1.08 (0.5-1.5 m/s) RVOT Peak Gr. 1.26 mmHg PV Peak Grad 4.7 mmHg RVOT Mean Gr. 0.65 mmHg PV Mean Grad 2.2 mmHg RVOT VTI 0.111 m PV VTI 0.222 m RVOT Vmax 0.56 m/s Tricuspid Valve TR Peak Grad 22.0 mmHg TR Vmax 2.35 m/s RA Pressure 3.00 mmHg RVSP (TR) 25.0 mmHg
== END ==
PROVIDERS: PCP Family Medicine; Visit Provider Family Medicine
DX: R94.31 Abnormal electrocardiogram [ECG] [EKG] (principal)
CPT/HCPCS: 93306

== ENCOUNTER → 2021-12-31 13:30 | Outpatient (BNVA) | payer OTHER, SELFPAY | PROVIDERS: PCP Family Medicine; Referring Provider Family Medicine; Visit Provider Student in an Organized Health Care Education/Training Program | DX: R69 Illness, unspecified (principal) ==

== ENCOUNTER → 2022-01-15 08:48 | Outpatient (BNVA) | payer OTHER, SELFPAY | PROVIDERS: PCP Family Medicine; Referring Provider Family Medicine; Visit Provider Physician Assistant | DX: Z01.818 Encounter for other preprocedural examination (principal); M75.101 Unspecified rotator cuff tear or rupture of right shoulder, not specified as traumatic; M75.21 Bicipital tendinitis, right shoulder; M12.811 Other specific arthropathies, not elsewhere classified, right shoulder ==

== ENCOUNTER 2022-01-20 02:54 | Outpatient (CLI) | payer OTHER, SELFPAY ==
[2022-01-20 12:33] LABS: Source Nasal/Nares
[2022-01-20 15:19] LABS: COVID-19 PCR Negative (Negative)
== END 2022-01-20 02:55 | disposition home or self-care (01) ==
LOC: LBO 02:54
PROVIDERS: PCP Family Medicine; Visit Provider Student in an Organized Health Care Education/Training Program
DX: Z20.822 Contact with and (suspected) exposure to COVID-19 (principal)
CPT/HCPCS: 87635

== ENCOUNTER 2022-01-22 06:02 | Day surgery (SDC) | payer OTHER, SELFPAY ==
[2022-01-22] VITALS (10 sets, daily range): BP systolic 88–117; BP diastolic 44–72; PULSE 62–81; RESP 17–21; TEMP 36.2–36.9; O2SAT 93–97; BMI 26.6
--- NOTE | 2022-01-22 07:00 | DI.RAD_ITS ---
Exam(s) XR SHOULDER RT COMPLETE 2+V EXAM: XR SHOULDER RT COMPLETE 2+V CLINICAL HISTORY: Portable in PACU postop. TECHNIQUE: 2D digital imaging was performed. COMPARISON: No exams were available for comparison FINDINGS: Two views: Postop images reveal satisfactory position alignment of the components of the newly placed reverse pr osthesis. No fracture nor loosening evident. IMPRESSION: DATA REPOSITORY: RADIATION DOSE DELIVERED:
--- NOTE | 2022-01-22 07:08 | W.ANESPRE ---
General Info Date of Service Date Performed: 01/22/22 Height: 5 ft 4 in Weight: 70.5 kg Body Mass Index (BMI): 26.6 Surgical Procedure: Operation Date: 01/22/22 07:40 Proposed Procedure Side Surgeon p Shoulder Reverse Total Arthroplasty, Bicep Tenodesis & any other indicated procedures Right Hitesh Alvarez MD Meds Allergies and Home Medications Allergies Allergy/AdvReac Type Severity Reaction Status Date / Time Carbapenems Allergy Severe Skin Rash Verified 01/22/22 06:32 cephalexin Allergy Severe Skin Rash Verified 01/22/22 06:32 Cephalosporins Allergy Severe Skin Rash Verified 01/22/22 06:32 codeine Allergy Severe RASH Verified 01/22/22 06:32 Penicillins Allergy Severe Percy Verified 01/22/22 06:32 Denis Syndrome Sulfa (Sulfonamide Allergy Severe Skin Rash Verified 01/22/22 06:32 Antibiotics) Tetracyclines Allergy Severe Percy Verified 01/22/22 06:32 Denis Syndrome BETALACTAMS Allergy Severe Skin Rash Uncoded 01/22/22 06:32 Home Medication Medication Instructions Recorded cyanocobalamin (vitamin B-12) 1,000 mcg PO DAILY #100 tab-caps 06/10/14 1,000 mcg tablet (Vitamin B-12) cholecalciferol (vitamin D3) 125 5,000 unit PO DAILY #90 caps 01/22/20 mcg (5,000 unit) capsule albuterol sulfate 90 mcg/actuation 2 puff inhalation 6XD PRN 10/02/20 aerosol inhaler shortness of breath or wheezing #18 grams clobetasol 0.05 % topical cream 1 applic topical DAILY lichen 12/03/20 planus #60 grams acetaminophen 500 mg capsule 1,000 mg PO Q8H PRN PRN #15 caps 05/20/21 levothyroxine 112 mcg tablet 112 mcg PO DAILY #90 tab-caps 10/23/21 celecoxib 200 mg capsule 200 mg PO DAILY #90 caps 12/21/21 aspirin 81 mg tablet,delayed 81 mg PO DAILY Prevent blood clot 01/22/22 release 14 days #14 tabs oxycodone 5 mg tablet 5 - 10 mg PO Q4H PRN moderate to 01/22/22 severe pain #18 tabs Current Visit Medications: Current Medications Generic Name Dose Route Start Last Admin Trade Name Freq PRN Reason Stop Dose Admin Ringer's Solution 1,000 mls @ 60 mls/hr 01/22/22 06:00 IV 02/20/22 23:59 INFUSION RODOLFO Cefazolin Sodium/Dextrose 2 gm in 50 mls @ 100 mls/hr 01/22/22 06:00 Ancef Duplex IVPB 01/22/22 16:00 PREOP RODOLFO Tranexamic Acid 1,000 mg/ 60 mls @ 360 mls/hr 01/22/22 06:00 Sodium Chloride IVPB 01/22/22 18:00 PREOP RODOLFO IV Miscellaneous Supplies 1 each 01/22/22 06:00 Iv Access IV 02/20/22 23:59 DIRECTED RODOLFO Lactobacillus Acidophilus/Casei 1 cap 01/23/22 08:30 L. 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 Hypothyroidism E03.9 Degenerative arthritis M19.90 Cervical radiculopathy 04/09/15 M54.12 Atrophic vaginitis 06/13/15 N95.2 Asthma J45.909 Neck pain M54.2 Shingles B02.9 Vitamin D deficiency E55.9 Tubular adenoma ~02/2020 D36.9 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 Hammertoe of right foot M20.41 Hip pain, bilateral M25.551, M25.552 Trochanteric bursitis, right hip M70.61 Digital mucinous cyst of finger of right hand M67.441 Low back pain M54.50 Rotator cuff tear arthropathy of right shoulder M75.101, M12.811 Tendonitis of long head of biceps brachii of right shoulder M75.21 Trigger middle finger of right hand M65.331 Arthritis of hand, right M19.041 Cortical cataract of right eye H26.9 Nuclear sclerotic cataract of right eye H25.11 Posterior subcapsular age-related cataract, right eye H25.041 Pulmonary nodule R91.1 Cortical cataract of left eye H26.9 Nuclear sclerotic cataract of left eye H25.12 Posterior subcapsular age-related cataract of left eye H25.042 Abnormal EKG R94.31 No-show for appointment Z53.29 Arthritis of right glenohumeral joint M19.011 Medical History Medical History Bronchospasm Calculus, kidney Collagenous colitis 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 Foot pain, right Gastrointestinal bleeding UPPER GI BLEED 11/2011 SECONDARY TO Duodenal AVM Skin lesion Surgical History Surgical History (Updated 01/22/22 @ 06:31 by Chelsy Ortiz RN) Appendectomy Arthroplasty of knee (~1989) bilateral History of appendectomy Hx of cataract surgery Hx of hammer toe correction x2 Replacement of total knee joint 09/02; B/L Trigger finger (05/20/21) Status post left ring finger trigger release Tobacco Smoking/Tobacco Use Status: Former Tobacco Use Passive smoking exposure: Yes Second hand exposure: Yes Alcohol Alcohol Intake: current Alcohol intake frequency: a few times a week Alcohol type: beer, wine and hard liquor Substance Use Substance use: Never Substance use type: does not use Vital Signs and Lab Results Vital Signs Most Recent Vital Signs in EMR: Most Recent Vital Signs Temp Pulse Resp BP Pulse Ox 36.6 C 67 17 104/71 97 01/22/22 06:18 01/22/22 06:18 01/22/22 06:18 01/22/22 06:18 01/22/22 06:18 Lab Results Blood Type / Crossmatch: No Data to Display Complete Blood Count: No Data to Display Complete Metabolic Panel: No Data to Display Liver Function Panel: No Data to Display Coagulation Panel: No Data to Display Cardiac Panel: No Data to Display Arterial Blood Gas: No Data to Display Venous Blood Gas: No Data to Display Pancreas Panel: No Data to Display Thyroid Panel: No Data to Display Infectious Disease: Coronavirus (COVID-19)(PCR) Negative (Negative) 01/20/22 10:12 Coronavirus 2019 Source Nasal/Nares 01/20/22 10:12 Blood Cultures: No Data to Display Toxicology Panel: No Data to Display Imaging and Studies Imaging and Studies Study information below may be from another EMR and interpreted by another provider. Please see original notes in EMR for more complete details. EKG Summary: DATE/TIME OF SERVICE: 11/18/21 1001 : 1945PERFORMING LOCATION: [facility] APPROVED REPORT Exam: Resting ECG Reason for Exam: Pre-operative Patient Location: O HR:71 bpm ECG Measurements Heart Rate 71 AXIS MO 104 P 52 QRSd 89 QRS 13 QT 380 T56 QTc 414 Conclusion Sinus rhythm...normal P axis, V-rate 60- 99 Poor R wave progression, possible Anterior infarct, old...Q >40mS, abnormal ST-T, V2-V5 Anesthesia Assessment and Plan Anesthesia History Personal History: No History of Anesthesia Complications Family History: No Family History of Anesthesia Complications Exercise Tolerance Exercise Tolerance: Metabolic Equivalents>4 Pertinent Negatives Pertinent Negatives: No Symptoms of GERD and No Major Cardiovascular Symptoms or Complaints Cardiac & Pulmonary Exam Cardiac Exam: Normal S1/S2 Heart Sounds Pulmonary Exam: Clear Bilateral Breath Sounds Implantable Cardiac Device Does patient have a Pacemaker or an ICD?: No Airway Exam Known Difficult Airway: No Mallampati Class: 2 Mouth Opening: Normal (> 3cm) Thyromental Distance: Greater than 3 cm Neck Range of Motion: Full ROM Neck Circumference: Normal Teeth Condition: Normal Dentition ASA Classification ASA Score: ASA 2 Emergency Case?: No NPO Status NPO Status: NPO Clears >2 hours, Solids >8 hours Anesthesia Plan Resuscitation Status: Full Code Anesthesia Technique: General Anesthesia Airway Planned: Endotracheal Tube Pain Management: Surgeon and patient request nerve block Monitors Used: Standard Monitors
[2022-01-22] MEDS: Lactated Ringers 1,000 ML 60 ML IV (07:14)
[2022-01-22] MEDS: ceFAZolin 2 GM/50 ML BAG IVPB (07:45)
--- NOTE | 2022-01-22 08:00 | W.PM.OP ---
Operative Note Operative Note DATE OF PROCEDURE: 01/22/22 PRE-OP DIAGNOSIS: Right: 1. Rotator cuff arthropathy 2. End-stage glenohumeral arthritis 3. Long head of the biceps tendinopathy POST-OP DIAGNOSIS: same PROCEDURE: Right: 1. Reverse total shoulder arthroplasty, CPT # 82884 2. Open biceps tenodesis, CPT # 52131 The regulatory assistant was medically required as this procedure involves retraction, protection of neurovascular structures, and manipulation of multiple instruments and implants at the same time, which cannot be done without a skilled regulatory assistant. SURGEON: Hitesh Alvarez EYELET MACHINE OPERATOR: Bert Carmona ANESTHESIA TYPE: Local By Surgeon, General LMA/ETT and Primary Nerve Block Refer to Anesthesia Record ESTIMATED BLOOD LOSS: 75 Patient was transported to: PACU Patient's condition: stable Implants: [employer] modular glenoid system baseplate 24 mm 10 degree full wedge [employer] modular glenoid system central post 20 mm [employer] modular glenoid system peripheral locking screws 36 mm inferior, 24 mm superior, 16 mm posterior, 16 mm anterior [employer] modular glenoid system glenosphere 36 +4 mm lateralized [employer] humeral stem 135 degrees size 6 [employer] suture cup size 36 central [employer] humeral insert size 36+6 mm Indications: Please see complete medical record for details. Findings: Significant long head biceps tenosynovitis, low?grade tearing subscapularis and high?grade tearing thinning and deficient superior rotator cuff, and complete glenohumeral cartilage loss. Procedure Description: In the operating room, general anesthesia was induced. The patient was positioned beachchair on the operating room table. All bony prominences were well-padded. Preoperative antibiotics were administered. Cefazolin 2 g was administered slowly without skin rash or issue. The shoulder was prepped and draped in the usual sterile fashion for shoulder arthroplasty. The correct patient, procedure, and side of the procedure were all verified prior to incision. The deltopectoral approach was taken to the anterior shoulder. Care was taken to bluntly dissect the interval between the deltoid and pectoralis major muscles and to identify the cephalic vein within its fat stripe. The the vein was mobilized laterally. Subdeltoid space and conjoined tendon were freed of adhesions. The long head of the biceps tendon was identified just lateral to the lesser tuberosity. The uppermost margin of the pectoralis major tendon was released from the proximal humerus. The long head of the biceps tendon was tenodesed in situ using SutureTape in a wzrcty-by-ikqxb fashion securing it superior margin the pectoralis major tendon. The biceps tendon was amputated and followed proximally to identify the rotator interval. A subscapularis peel was performed taking care to release the entire tendon in a full-thickness fashion from superior to inferior and lateral to medial while bringing the arm gradually into external rotation. Care was taken to avoid the axillary nerve by only working on the bone inferiorly and medially. The subscapularis was tagged using SutureTape in a Giovanni-Juanito fashion and traction used confirm appropriate mobilization of the subscapularis tendon after gentle blunt dissection was used to free up the space anterior and posterior to it. The supraspinatus and infraspinatus were identified and debrided largely from the greater tuberosity given the high?grade tearing and minimal structural remnant present. Appropriate coagulation was achieved especially interiorly. The anatomic neck was cut using an oscillating saw with the humeral head bone brought back table in case there was a need for future bone grafting. The proximal humeral protection plate was used to provisionally confirm suture cup and glenosphere size. Attention was then turned to the glenoid and retractors were placed and a circumferential release performed using the long head of the biceps remnant to remove soft tissue about the glenoid rim. Care was taken inferiorly to work on bone only between 5 and 7:00 o'clock and bluntly elevate tissues inferiorly. The VIP guide was placed on the glenoid and used to confirm placement and trajectory of the central guidepin. The guidepin was inserted and advanced just through the far cortex ensuring adequate central fixation length. Depth gauge was used to confirm length. The defect mechanical and auto body car checker was used, marking rotation for the augment superiorly given the largely superior inclination and inferior placement of the baseplate on the glenoid. The eccentric reamer was then used carefully preparing the glenoid. The appropriate post drill was then done and guide wire removed. The baseplate was impacted and fully compressed onto the glenoid surface maintaining appropriate orientation. The locking guide was then used to drill and place appropriately lengthed inferior, superior, anterior, and posterior screws. The vsfq-dfb-tymvcifay reamer was used to confirm adequate peripheral reaming. The glenosphere was applied with the separator inserter and then impacted to engage the Rae taper. It was then locked with appropriate countersinking of the setscrew. The glenosphere was inspected and found to have good fit, appropriate positioning, and no soft tissue or bony impingement. Attention was then turned back to the proximal humerus, which was delivered from the wound and maintained in external rotation. Reamers were started appropriately posterior to the bicipital groove taking care to maintain in line approach with the humeral canal. Sequential reaming was done from size 5 up to size 7. Next, the broaches were sequentially used to open the proximal humerus starting with a size 5 and going up to size 6 and sunk to the appropriate depth while maintaining approximately 30 degrees retroversion. There was good metaphyseal fit and rotational control of the proximal humerus with this size. The central offset guide was used to ream for the suture cup. The humeral trial cup was connected. Trialing was commenced with +3 mm liner. The shoulder was reduced and taken through range of motion. Trial components were built up to +6 mm liner to achieve good stability and appropriate tension on the deltoid and conjoined tension. The trial components were removed from the proximal humerus. The wound was copiously irrigated with normal saline. A 2 mm drill was used to drill 2 drill holes in the bicipital groove for later subscapularis repair. The the proximal humeral stem and suture cup were assembled and brought over the proximal humerus. Suture tapes were placed superiorly inferiorly at the medial and lateral aspect of the suture cup. The lateral tapes were brought out the drill holes. The humeral component and suture cup were impacted into place. The trial liner was added, and the shoulder was reduced and range of motion, stability, and tension confirmed to be appropriate. The final +6 mm liner was then connected, and range of motion, stability, and tension confirmed. The shoulder was copiously irrigated with Betadine and normal saline. Vancomycin powder was distributed deeply about the shoulder and through subcutaneous tissues. The arm was placed in about 30 degrees of external rotation. The subscapularis was reduced and repaired using the addie caban StureTape in a speed bridge type configuration. The arm was taken into more external rotation without any displacement of the subscapularis repair. The deltopectoral interval was well approximated. Subcutaneous tissue was irrigated then closed using 2-0 Monocryl in a buried interrupted fashion. Skin was closed using 3-0 Monocryl in a buried subcuticular fashion. Skin glue was applied to the incision. A silver impregnated bandage was placed over the incision. The extremity was placed into a shoulder immobilizer. The patient awoke from anesthesia without complication and was taken to the recovery room in stable condition.
[2022-01-22] MEDS: Bupivacaine 0.25% Pres-Free W/EPI 30 ML VIAL (08:26)
--- NOTE | 2022-01-22 09:02 | W.ANESNERVE ---
Nerve Block Single Injection Procedure Date and Time Date Performed: 01/22/22 Procedure Start: 07:15 Location Where Procedure Performed Procedure Location: Day Surgery Unit Reason Performed: Postoperative Analgesia Requesting Provider: Hitesh Alvarez Timeout Performed Timeout Performed: Yes Monitoring Used ECG, Blood Pressure, SpO2 and See EMR for corresponding vital signs Sterility Sterility: Hand Hygiene, Surgical Cap, Surgical Mask, Sterile Gloves and Chlorhexidine Sedation Given During Procedure Sedation Given (Indicate Dose Given): Versed IV Dose:: 1mg Patient Mental Status Patient Mental Status: Awake Nerve Block 1st Nerve Block: Laterality: Right Block Type: Supraclavicular Needle / Catheter Used: 80mm SonoPlex II Local Anesthetic Bolus (Indicate Dose Given): Lidocaine used for local infiltration of skin, Injected in 3-5ml increments after negative blood aspiration and Bupivacaine 0.5% Dose:: 20ml Additives (Indicate Dose Given): None Ultrasound: Sterile probe cover and gel used Ultrasound Image Saved?: Yes Nerve Stimulator: Not Used Paresthesia: Right Paresthesia Duration: Transient (When injecting, stopped and needle withdrew.) Procedure Tolerated: No Complications and Patient tolerated well Procedure Outcome: Successful Performed By: Jeff Angulo
--- NOTE | 2022-01-22 10:54 | W.PM.DSUDISC ---
Discharge Plan Disposition Patient Disposition: HOME Condition: Stable Discharge Details Reason For Visit: Right shoulder surgery Attending Provider: Hitesh Alvarez Primary Care Provider: Angie Hamm Home Meds and New Rx's Prescriptions: New aspirin 81 mg tablet,delayed release (DR/EC) 81 mg PO DAILY 14 Days Qty: 14 0RF oxycodone 5 mg tablet 5 - 10 mg PO Q4H MDD 30 mg PRN (Reason: moderate to severe pain) Qty: 18 0RF Continued cyanocobalamin (vitamin B-12) [Vitamin B-12] 1,000 MCG tablet 1,000 mcg PO DAILY Qty: 100 cholecalciferol (vitamin D3) 125 mcg (5,000 unit) capsule 5,000 unit PO DAILY Qty: 90 3RF albuterol sulfate 90 mcg/actuation HFA aerosol inhaler 2 puff IH 6XD PRN (Reason: shortness of breath or wheezing) Qty: 18 0RF levothyroxine 112 mcg tablet 112 mcg PO DAILY Qty: 90 3RF Rx Instructions: Brand name Synthroid medically necessary celecoxib 200 mg capsule 200 mg PO DAILY Qty: 90 1RF acetaminophen 500 mg capsule 1,000 mg PO Q8H PRN PRNQty: 15 0RF Discontinued tramadol 50 mg tablet 50 mg PO BID MDD 6 PRN (Reason: pain) Qty: 30 5RF No Action clobetasol 0.05 % cream 1 applic Topical DAILY Qty: 60 3RF Rx Instructions: Apply a small amount to vulva daily Discharge Instructions Additional Instructions: Surgery: Right reverse total shoulder arthroplasty (subscapularis repair) with biceps tenodesis Activity: Do not lift anything heavier than a coffee. You should keep your arm at your side in a neutral position at all times except for gentle range of motion exercises, physical therapy, and essential activities. You should use the sling whenever you are out of the house. You may have to adjust the abduction pillow or remove it for comfort. At home it is best to remove the sling and rest the arm on a pillow at your side or support the operative side with your other hand. A physical therapy prescription will be sent electronically to start in 2-3 weeks. Reverse TSA Protocol: Postoperative Weeks 0-6 ?Immobilization: Sling may be removed for therapeutic exercises, resting in bed or chair, and bathing ?Motion exercises: Pendulum exercises, elbow range- of-motion exercises, wrist ofmbh-ew-mmbsdu exercises, and diplomatic interpreter strengthening ?Restrictions: No active internal rotation or backwards extension Postoperative Weeks 6-12 ?Immobilization: Sling discontinued ?Motion exercises: Shoulder passive range of motion, advancing to active-assisted range of motion, and finally active range of motion with a goal of forward flexion to 90? and external rotation of 20? ?Strengthening exercises: Light, resisted forward flexion, external rotation, and abduction limited to isometric exercises and therapy bands with concentric motions only. Continue diplomatic interpreter strengthening ?Restrictions: No resisted internal rotation or backwards extension. No scapular retraction exercises with therapy bands Postoperative Months 3-12 ?Motion exercises: Increase nnytu-io-xzujek exercises to achieve full motion, with passive stretching at end ranges ?Strengthening: Begin resisted, internal rotation and backwards extension initially with isometric exercises advancing to light therapy bands and then weights. Advance other shoulder strengthening exercises to include the rotator cuff, deltoid, and scapular stabilizers. Advance to functional strengthening, including plyometric exercises and core strengthening. Prescriptions: Aspirin 81 mg take 1 daily to prevent a blood clot for 2 weeks Celecoxib 200 mg take 1 daily as needed for musculoskeletal pain Oxycodone 5 mg take 1-2 every 4-6 hours as needed for severe pain (Or, may use Tramadol 50 mg take 1 every 6-8 hours as needed for moderate pain) You may use orft-rww-iybdaym Tylenol (acetaminophen) as needed for mild pain. These pain medications may be taken all at once or in different combinations as needed. Also, recommend Colace (docusate) as a stool softener as surgery and pain medicine cause constipation. You may try rhsd-nqc-[id number] diphenhydramine (Benadryl) 25-50 mg nightly as a sleep aid Dressings: Leave dressing in place until follow-up. Keep clean and dry at all times. No showers please. Follow-up: 10-[address] Alvarez Please call the office during business hours with any questions or concerns. Let us know right away if you develop any redness, drainage, fevers, chest pain, or trouble breathing. Do not drink alcohol or drive for at least 24 hours after anesthesia. Discharge Orders Discharge Orders: Discharge Order (Routine); Ordered 01/22/22 Ordered By: Hitesh Alvarez DS: Diagnosis Discharge Diagnosis (1) Rotator cuff tear arthropathy of right shoulder: Status: Acute (2) Tendonitis of long head of biceps brachii of right shoulder: Status: Acute
--- NOTE | 2022-01-22 12:16 | W.ANESPOSTOP ---
Postoperative Evaluation Date, Time and Location Date Performed: 01/22/22 Time Performed: 11:23 Patient Location: PACU Vital Signs Most Recent Imported Vital Signs: Most Recent Vital Signs Temp Pulse Resp BP Pulse Ox 36.3 C L 71 19 105/53 L 93 01/22/22 11:37 01/22/22 11:37 01/22/22 11:37 01/22/22 11:37 01/22/22 11:37 Pain Score Most Recent Pain Score: Most Recent Pain Score Pain Level 0 01/22/22 11:37 Assessment Mental Status: Arousable with meaningful communication Airway and Respiratory Function: Patent airway with normal (patient baseline) respiratory exam Cardiovascular Function: Hemodynamically Stable Hydration Status: Adequately Hydrated Nausea & Vomiting: No Nausea or Vomiting Pain: Pt. Denies Any Pain Peripheral Nerve Block: Regional nerve block not resolved at time of post operative discharge
[2022-01-22] MEDS: ceFAZolin 1 GM/50 ML BAG IVPB (12:22)
== END 2022-01-22 14:20 | disposition home or self-care (01) ==
PROVIDERS: PCP Family Medicine; Visit Provider Student in an Organized Health Care Education/Training Program
PROC: (CPT 23472; principal; 2022-01-22 07:30)
DX: M19.011 Primary osteoarthritis, right shoulder (principal); M75.21 Bicipital tendinitis, right shoulder; M75.101 Unspecified rotator cuff tear or rupture of right shoulder, not specified as traumatic
CPT/HCPCS: 23472; 23430; C1713; 76942; 73030; J0690; J1100; J1885; J2250; J2370; J2405; J2704

== ENCOUNTER 2022-02-04 10:06 | Outpatient (CLI) | payer OTHER, SELFPAY ==
--- NOTE | 2022-02-04 10:00 | DI.RAD_ITS ---
Exam(s) XR SHOULDER RT COMPLETE 2+V EXAM: XR SHOULDER RT COMPLETE 2+V CLINICAL HISTORY: f/u surgery r reverse TSA. TECHNIQUE: 2D digital imaging was performed. COMPARISON: CR XR SHOULDER RT COMPLETE 2+V from 01/22/2022 FINDINGS: Two views: There is continue satisfactory position alignment of the components of the recently placed reverse pr osthesis. No fracture or loosening evident. IMPRESSION: DATA REPOSITORY: RADIATION DOSE DELIVERED:
== END 2022-02-04 10:07 | disposition home or self-care (01) ==
LOC: DIORS 10:06
PROVIDERS: PCP Family Medicine; Referring Provider Family Medicine; Visit Provider Student in an Organized Health Care Education/Training Program
DX: M12.811 Other specific arthropathies, not elsewhere classified, right shoulder (principal); M75.101 Unspecified rotator cuff tear or rupture of right shoulder, not specified as traumatic; M75.21 Bicipital tendinitis, right shoulder; Z47.89 Encounter for other orthopedic aftercare; Z96.611 Presence of right artificial shoulder joint
CPT/HCPCS: 73030

== ENCOUNTER 2022-03-24 13:48 | Outpatient (CLI) | payer OTHER, SELFPAY ==
--- NOTE | 2022-03-24 13:30 | DI.RAD_ITS ---
Exam(s) XR SHOULDER RT COMPLETE 2+V EXAM: XR SHOULDER RT COMPLETE 2+V CLINICAL HISTORY: right shoulder f/u. TECHNIQUE: 2D digital imaging was performed. COMPARISON: CR XR SHOULDER RT COMPLETE 2+V from 02/04/2022 FINDINGS: Two views: There is dislocation of the reverse prosthesis. The humeral component is dislocated anteriorly relative to the glenoid component. No obvious fractur e evident. IMPRESSION: DATA REPOSITORY: RADIATION DOSE DELIVERED:
== END 2022-03-24 13:49 | disposition home or self-care (01) ==
LOC: DIORS 13:49
PROVIDERS: PCP Family Medicine; Referring Provider Family Medicine; Visit Provider Student in an Organized Health Care Education/Training Program
DX: Z96.611 Presence of right artificial shoulder joint (principal); Z47.89 Encounter for other orthopedic aftercare
CPT/HCPCS: 99213; 73030

== ENCOUNTER 2022-03-24 14:15 | Emergency (ER) | payer OTHER, SELFPAY ==
[2022-03-24] VITALS (9 sets, daily range): BP systolic 113–193; BP diastolic 55–92; PULSE 61–77; RESP 14–29; TEMP 36.9; O2SAT 96–99
--- NOTE | 2022-03-24 14:40 | W.ED.GENAD ---
Discharge Plan Disposition Patient Disposition: HOME Condition: Stable Discharge Details Clinical Impression: Dislocation of shoulder, right, closed Primary Care Provider: Angie Hamm ED Provider: Ruben Beard Home Meds and New Rx's Prescriptions: Continued cyanocobalamin (vitamin B-12) [Vitamin B-12] 1,000 MCG tablet 1,000 mcg PO DAILY Qty: 100 cholecalciferol (vitamin D3) 125 mcg (5,000 unit) capsule 5,000 unit PO DAILY Qty: 90 3RF albuterol sulfate 90 mcg/actuation HFA aerosol inhaler 2 puff IH 6XD PRN (Reason: shortness of breath or wheezing) Qty: 18 0RF levothyroxine 112 mcg tablet 112 mcg PO DAILY Qty: 90 3RF Rx Instructions: Brand name Synthroid medically necessary celecoxib 200 mg capsule 200 mg PO DAILY Qty: 90 1RF clobetasol 0.05 % cream 1 applic Topical DAILY Qty: 60 3RF Rx Instructions: Apply a small amount to vulva daily acetaminophen 500 mg capsule 1,000 mg PO Q8H PRN PRNQty: 15 0RF Discharge Instructions Instructions: Shoulder Dislocation (ED) Additional Instructions: Dr. Alvarez's office should reach out to you to arrange follow up if you have severe worsening pain or feel more ill return to the emergency department Medical Decision Making 76 yo female who had a right shoulder arthroplasty in January comes in with right shoulder pain. She states it started whens he turned her head to the right Wednesday, denies falls or other trauma. She went to ortho office today, had an xray which showed a dislocation of the arthroplasty and was referred here. She denies pain elsewhere. Has visible deformity of the right shoulder no distal tenderness and intact distal sensation and pulses. Given xray already done prior to arriving will need sedation for reduction, labs requested by ortho as well including cbc, esr and crp. Pt consents to having sedation for reduction of dislocation pt tolerated sedation with 70mg propofol without complications and felt reduction on exam, will confirm with xray, intact distal sensation and pulses xray confirms reduction, she is stable and reviewed case with Dr. Alvarez who recommends sling and will f/u with the patient. Differential Diagnosis Differential Diagnosis: fracture, dislocation Medical Records Medical records reviewed: Yes I reviewed the patient's medical records. Imaging Data Radiologic Study: Attestation: I personally reviewed and interpreted this imaging study as follows: Imaging: X-Ray My impression: shoulder reduced Lab Data Lab results reviewed: Yes I reviewed the patient's lab results. HPI General Mode of arrival: ambulatory. Date/Time Provider Initiated Documentation: 03/24/22 14:18. Limitations to Documentation: no limitations. Information obtained by: patient. History of Present Illness 76 year old F presents to the emergency department with the chief complaint of right shoulder pain, described as moderate, Quality is described as aching, Patient started experiencing this day(s) (3) and it has been constant. Rest improves symptom(s), Movement worsens symptoms . Patient notes no other symptoms.. Patient did receive the following treatments prior to arrival, none Related Data Home Medications Medication Instructions Recorded Confirmed cyanocobalamin (vitamin B-12) 1,000 mcg PO DAILY #100 tab-caps 06/10/14 03/24/22 1,000 mcg tablet (Vitamin B-12) cholecalciferol (vitamin D3) 125 5,000 unit PO DAILY #90 caps 01/22/20 03/24/22 mcg (5,000 unit) capsule albuterol sulfate 90 mcg/actuation 2 puff inhalation 6XD PRN 10/02/20 03/24/22 aerosol inhaler shortness of breath or wheezing #18 grams acetaminophen 500 mg capsule 1,000 mg PO Q8H PRN PRN #15 caps 05/20/21 03/24/22 levothyroxine 112 mcg tablet 112 mcg PO DAILY #90 tab-caps 10/23/21 03/24/22 celecoxib 200 mg capsule 200 mg PO DAILY #90 caps 12/21/21 03/24/22 clobetasol 0.05 % topical cream 1 applic topical DAILY lichen 03/08/22 03/24/22 planus #60 grams Previous Rx's Medication Instructions Recorded cholecalciferol (vitamin D3) 125 5,000 unit PO DAILY #90 caps 01/22/20 mcg (5,000 unit) capsule albuterol sulfate 90 mcg/actuation 2 puff inhalation 6XD PRN 10/02/20 aerosol inhaler shortness of breath or wheezing #18 grams acetaminophen 500 mg capsule 1,000 mg PO Q8H PRN PRN #15 caps 05/20/21 levothyroxine 112 mcg tablet 112 mcg PO DAILY #90 tab-caps 10/23/21 celecoxib 200 mg capsule 200 mg PO DAILY #90 caps 12/21/21 clobetasol 0.05 % topical cream 1 applic topical DAILY lichen 03/08/22 planus #60 grams Allergies Allergy/AdvReac Type Severity Reaction Status Date / Time Carbapenems Allergy Severe Skin Rash Verified 03/24/22 14:29 cephalexin Allergy Severe Skin Rash Verified 03/24/22 14:29 codeine Allergy Severe RASH Verified 03/24/22 14:29 Penicillins Allergy Severe Percy Verified 03/24/22 14:29 Denis Syndrome Sulfa (Sulfonamide Allergy Severe Skin Rash Verified 03/24/22 14:29 Antibiotics) Tetracyclines Allergy Severe Percy Verified 03/24/22 14:29 Denis Syndrome BETALACTAMS Allergy Severe Skin Rash Uncoded 03/24/22 14:29 General Stated Complaint: Orthopedic OH: 3 Review of Systems All systems reviewed & are unremarkable except as noted in HPI and below Constitutional Constitutional: Denies chills, Denies fever(s) and Denies weakness Cardiovascular Cardiovascular: Denies chest pain and Denies dyspnea Respiratory Respiratory: Denies cough and Denies dyspnea Gastrointestinal Gastrointestinal: Denies abdominal pain, Denies nausea and Denies vomiting Integumentary/Breasts Skin/Breast: Denies rash Neurologic Neurologic: Denies weakness PFSH All Active Problems (Updated 03/24/22 @ 16:29 by Ruben Beard MD) Dislocation of shoulder, right, closed (Acute) Dislocation of right shoulder joint (Acute 03/21/22) With Reverse TSA Status post reverse total arthroplasty of right shoulder (Acute 01/22/22) Chronic pain syndrome (Chronic) 2021-on tramadol-1/day, prescribed at [facility], drug agreement 04/2021 Vitamin B 12 deficiency (Acute 06/07/14) Lichen planus (Acute 12/04/13) Hypothyroidism (Chronic) Degenerative arthritis (Acute) s/p bilat TKR Cervical radiculopathy (Acute 04/09/15) Atrophic vaginitis (Acute 06/13/15) Asthma (Chronic) Neck pain (Chronic) She has serious arthritis and spinal stenosis in her neck. The ablation may help her and/or cure her. However the likelihood of necessary surgical intervention is still in the picture. We talked a little about this. The pain medicine is only helping her get by at this point. I also talked to her about trying to slow down a bit at work and may be consider fpc. She appears very tired today. Shingles (Acute) Vitamin D deficiency (Acute) Tubular adenoma (Acute ~02/2020) background showed lymphocytic colitis, repeat colo [address] Arina Bass metatarsalgia (Acute) Hammertoe of right foot (Acute) Hip pain, bilateral (Acute) Trochanteric bursitis, right hip (Acute) Steroid injection: 03/24/2021; 05/13/21 (pcp) Digital mucinous cyst of finger of right hand (Acute) Low back pain (Acute) Rotator cuff tear arthropathy of right shoulder (Acute) Tendonitis of long head of biceps brachii of right shoulder (Acute) Trigger middle finger of right hand (Acute) Arthritis of hand, right (Acute) Pulmonary nodule (Acute) 10/2021-small pulmonary nodule-5 mm on right, incidental finding in a non-smoker Repeat noncontrast CT in 1 year Abnormal EKG (Acute) 11/2021 Q waves anterior leads, normal echo with EF 55-60%, no wall motion abnl, EKG c/w false positive result Arthritis of right glenohumeral joint (Acute) Medical History (Updated 03/24/22 @ 16:29 by Ruben Beard MD) Bronchospasm Calculus, kidney Collagenous colitis 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 Foot pain, right Gastrointestinal bleeding UPPER GI BLEED 11/2011 SECONDARY TO Duodenal AVM No-show for appointment Skin lesion Surgical History (Updated 02/04/22 @ 10:43 by Mia Hartmann) Appendectomy Arthroplasty of knee (~1989) bilateral History of appendectomy Hx of cataract surgery Hx of hammer toe correction x2 Replacement of total knee joint 09/02; B/L Trigger finger (05/20/21) Status post left ring finger trigger release Family History Mother , 76 Personal history of malignant neoplasm MOUTH Heart disease Stroke Sister Essential hypertension Hyperlipidemia Brother Essential hypertension Lung cancer Grandfather Essential hypertension Heart disease Grandfather Diabetes Grandmother Stroke Sister No problems noted. Sister No problems noted. Sister No problems noted. Sister No problems noted. Brother No problems noted. Brother No problems noted. Brother No problems noted. Son Stroke Daughter No problems noted. Social History Smoking/Tobacco Use Status: Former Tobacco Use tobacco type: cigarettes Quit Date: 05/24/67 Tobacco: How many years used: 10 Second Hand Exposure: Yes Smoking risk assessment performed?: Yes Alcohol Intake: current Alcohol Intake frequency: a few times a week Alcohol type: beer, wine and hard liquor Drug use: Never Substance use type: does not use Household members: family Do you need help understanding health information?: Never Pets and animals: Yes Pets and animals: cat(s) and dog(s) Sexually active: No Current gender identity: female What is your relationship status?: How often do you talk on the phone with friends or family?: three or more times per week How often do you get together with friends or relatives?: three or more times per week How often do you attend episcopalian or jainism services?: 1-3 times per year Do you belong to any clubs or organized social groups?: no Panel score (0-1 are the most socially isolated patients): 1 Evita/Jainism: No preference Special evita needs: No Seatbelt use: always Helmet use: No 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 Do you feel safe at home: Yes Do you feel safe in your relationship?: Yes Exam Const General: no acute distress Orientation: alert HENMT Head: normal to inspection Ears: external ears normal General nose exam: external nose normal Mouth: moist mucous membranes Eyes General: appearance normal, both eyes and all related structures Neck Neck: normal visual inspection Resp Effort & Inspection: normal respiratory effort and able to speak in complete sentences Cardio Rate: regular rate Skin General skin exam: no rashes or lesions noted Neuro General: patient alert and patient oriented x3 Psych Mental Status: mental status grossly normal Course Vital Signs Vital signs: Vital Signs Temperature 36.9 C 03/24/22 14:21 Pulse 77 03/24/22 14:21 Respiratory Rate 20 03/24/22 14:21 Blood Pressure 193/92 H 03/24/22 14:21 Pulse Oximetry 98 03/24/22 14:21 Temperature 36.9 C 03/24/22 14:21 Temperature Source Temporal Artery Scan 03/24/22 14:21 Pulse 77 03/24/22 14:21 Respiratory Rate 20 03/24/22 14:21 Respiratory Effort Non-Labored 03/24/22 14:28 Blood Pressure 193/92 H 03/24/22 14:21 Blood Pressure Position Sitting 03/24/22 14:21 Pulse Oximetry 98 03/24/22 14:21 Oxygen Delivery Method Room Air 03/24/22 14:21 Oxygen Flow Rate 0 03/24/22 14:21 Pain Level 8 03/24/22 14:21 Procedures Orthopedic Joint Reduction Joint #1: Time Out Performed: Yes Side: right Joint Reduction Location: shoulder Analgesia: procedural sedation Shoulder Technique Used (if applicable): external rotation Post-reduction neuro exam: intact Post-reduction vascular: intact Post Reduction X-Ray Obtained: Yes Post Reduction X-Ray Results: reduced Splint Applied: No (sling applied) Patient Tolerated Procedure: well Procedural Sedation Indication: fracture/dislocation reduction ASA Class: I Preparation: air sampling and monitoring applied and pulse oximeter IV Propofol dose (mg): 70 Patient Tolerated Procedure: well Complications: none PAWSS Have you Been Recently Intoxicated or Drunk Within the Last 30 days?: No Have you Ever Experienced Previous Episodes of Alcohol Withdrawal?: No Have you ever Experienced Withdrawal Seizures?: No Have you ever Experienced Delirium Tremens(DT)s?: No Have you ever undergone Alcohol Rehabilitation Treatment (i.e, inpt ot outpatient treatment programs)?: No Have you ever Experienced Blackouts?: No Have you ever Combined Alcohol with other Downers within the last 90 days?: No Have you ever Combined Alcohol with any other Substance of Abuse during the last 90 days?: No Positive Blood Alcohol level on Presentation? [PCS.BAL]: No Evidence of Increased Autonomic Activity (i.e. HR>120, tremor, sweating, agitation, nausea)?: No Result: 0
[2022-03-24 14:59] LABS: Source Nasal/Nares
[2022-03-24] MEDS: fentaNYL 100 MCG/2 ML VIAL 50 MCG IVP (15:00)
[2022-03-24 15:01] LABS: ESR 9 mm/hr (0-30)
[2022-03-24 15:03] LABS: Absolute Basophil Count 0.12 10^3/uL (0.0-0.2); Absolute Eosinophil Count 0.18 10^3/uL (0.0-0.7); Absolute Lymphocyte Count 3.03 10^3/uL (1.2-3.4); Basophils % 1.1; Eosinophils % 1.7; HCT 36.2 % (36.0-46.0); HGB 11.8 g/dL (11.2-15.7); Immature Grans % 0.9; MCH 29.6 pg (27.0-33.0); MCHC 32.6 % (32.0-36.0); MCV 91 fL (80-95); MPV 10.1 fL (8.0-11.0); Monocytes % 6.5; Neutrophils % 61.8; Platelet Count 371 10^3/uL (130-400); RBC 3.98 10^6/uL (3.93-5.22); RDW 12.6 % (11.7-14.6); RDW-SD 41.7 fL; WBC 10.83 10^3/uL (4.4-10.8)
[2022-03-24 15:04] LABS: Absolute Neutrophil Count 6.69 10^3/uL (1.2-6.7)
--- NOTE | 2022-03-24 15:15 | DI.RAD_ITS ---
Exam(s) XR SHOULDER RT COMP POST REDUC EXAM: XR SHOULDER RT COMP POST REDUC CLINICAL HISTORY: s/p closed reduction. TECHNIQUE: 2D digital imaging was performed. COMPARISON: CR XR SHOULDER RT COMPLETE 2+V from 03/24/2022 FINDINGS: Two views: Post reduction views reveal satisfactory alignment of the components of the reverse prosthesis. No f racture or loosening evident. IMPRESSION: DATA REPOSITORY: RADIATION DOSE DELIVERED:
[2022-03-24] MEDS: Propofol 200 MG/20 ML VIAL 70 MG IVP (15:20)
[2022-03-24 15:22] LABS: ALT 16 U/L (14-59); AST 12 U/L (15-37); Albumin 3.6 g/dL (3.4-5.0); Alkaline Phosphatase 105 U/L (46-116); Anion Gap 7.4 mmol/L (3-11); BUN 24 mg/dL (7-18); Bilirubin, Total 0.3 mg/dL (0.2-1.0); C-Reactive Protein 0.92 mg/dL (0.0-0.3); CO2 25.6 mmol/L (21.0-32.0); CREATININE 0.7 mg/dL (0.55-1.02); Calcium 9.8 mg/dL (8.5-10.1); Chloride 103 mmol/L (98-107); Estimated GFR 90.14 (mL/min/1.73m2); Glucose 114 mg/dL (74-106); Potassium 3.8 mmol/L (3.5-5.1); Sodium 136 mmol/L (136-145); Total Protein 7.5 g/dL (6.4-8.2)
[2022-03-24 15:31] LABS: COVID-19 PCR Negative (Negative)
== END 2022-03-24 16:51 | disposition home or self-care (01) ==
PROVIDERS: Emergency Provider Emergency Medicine; PCP Family Medicine
DX: T84.028A Dislocation of other internal joint prosthesis, initial encounter (principal); Z96.611 Presence of right artificial shoulder joint; Y79.2 Prosthetic and other implants, materials and accessory orthopedic devices associated with adverse incidents; Z20.822 Contact with and (suspected) exposure to COVID-19
CPT/HCPCS: 23650; 36415; 73030; 80053; 85652; 87635; 99284; 99285; 85025; 86140; J2704; J3010

== ENCOUNTER 2022-04-21 11:40 | Outpatient (CLI) | payer OTHER, SELFPAY ==
--- NOTE | 2022-04-21 11:30 | DI.RAD_ITS ---
Exam(s) XR SHOULDER RT COMPLETE 2+V EXAM: XR SHOULDER RT COMPLETE 2+V CLINICAL HISTORY: right shoulder f/u. TECHNIQUE: 2D digital imaging was performed. Two images were obtained. AP and Y views were obtained . COMPARISON: CR XR SHOULDER RT COMPLETE 2+V from 03/24/2022 CR XR SHOULDER RT COMP POST REDUC from 03/24/2022 FINDINGS: BONES: There are stable post operative changes present. No fracture or dislocation. JOINTS: The orthopedic hardware is in good position. No evidence of hardware loosening. Stable dege nerative changes are seen at the acromioclavicular joint. SOFT TISSUE: Normal. IMPRESSION: Stable postoperative changes. DATA REPOSITORY: RADIATION DOSE DELIVERED:
== END 2022-04-21 11:41 | disposition home or self-care (01) ==
LOC: DIORS 11:40
PROVIDERS: PCP Family Medicine; Referring Provider Family Medicine; Visit Provider Student in an Organized Health Care Education/Training Program
DX: Z47.89 Encounter for other orthopedic aftercare (principal); Z96.611 Presence of right artificial shoulder joint
CPT/HCPCS: 73030

== ENCOUNTER 2022-07-30 10:28 | Outpatient (CLI) | payer OTHER, SELFPAY ==
[2022-07-30 10:40] LABS: TSH (W/Ref FT4) 2.71 uIU/mL (0.36-3.74)
== END 2022-07-30 10:29 | disposition home or self-care (01) ==
LOC: LBO 10:28
PROVIDERS: PCP Family Medicine; Visit Provider Nurse Practitioner Family
DX: E03.9 Hypothyroidism, unspecified (principal)
CPT/HCPCS: 36415; 84443

== ENCOUNTER 2022-08-12 11:04 | Outpatient (CLI) | payer OTHER, SELFPAY ==
--- NOTE | 2022-08-12 10:15 | DI.RAD_ITS ---
Exam(s) XR SHOULDER RT COMPLETE 2+V EXAM: XR SHOULDER RT COMPLETE 2+V CLINICAL HISTORY: f/u RTSA. TECHNIQUE: 2D digital imaging was performed. Images were obtained. AP, lateral and oblique views w ere obtained. 2D digital imaging was performed of the right shoulder. Four images were obtained. AP, Grashey, Y-v iew and axillary views were obtained. COMPARISON: CR XR SHOULDER RT COMPLETE 2+V from 04/21/2022 FINDINGS: BONES: There are stable post operative changes present. No fracture or dislocation. JOINTS: The orthopedic hardware is in good position. No evidence of hardware loosening. Degenerativ e changes are seen at the acromioclavicular joint. SOFT TISSUE: Normal. IMPRESSION: Stable postoperative changes. DATA REPOSITORY: RADIATION DOSE DELIVERED:
== END 2022-08-12 11:05 | disposition home or self-care (01) ==
LOC: DIORS 11:04
PROVIDERS: PCP Family Medicine; Referring Provider Family Medicine; Visit Provider Student in an Organized Health Care Education/Training Program
DX: Z96.611 Presence of right artificial shoulder joint (principal); Z47.1 Aftercare following joint replacement surgery; S43.004D Unspecified dislocation of right shoulder joint, subsequent encounter; X58.XXXD Exposure to other specified factors, subsequent encounter
CPT/HCPCS: 99213; 73030

== ENCOUNTER 2022-09-24 13:28 | Day surgery (SDC) | payer OTHER, SELFPAY ==
--- NOTE | 2022-09-24 | DI.CT_ITS ---
Exam(s) CT UPPER EXTREMITY RT WO EXAM: CT UPPER EXTREMITY RT WO CLINICAL HISTORY: RTSA dislocation TECHNIQUE: Imaging Protocol: Axial computed tomography images with coronal and sagittal reformatted images were created and reviewed. CONTRAST MATERIAL: None COMPARISON: CT CT UPPER EXTREMITY RT WO from 11/12/2021 FINDINGS: There is a right shoulder reverse prosthesis evident. When compared to the proceeding images there a ppears to be no dislocation at this time and no obvious periprosthetic fracture evident. There is no a fluid collection in the adjacent tissues. Incidentally noted is mild infiltrate in the adjacent right lung lower lobe. No pleural effusion. N o pneumothorax. No visualized right rib fractures. IMPRESSION: Satisfactory Ree alignment of the dislocated components of the reverse prosthesis. No obvious fractu re. RADIATION DOSE DELIVERED: 561.91mGy.cm Total DLP DATA REPOSITORY: All CT scans at this facility are submitted to the National Radiology Data Registry (NRDR) Dose Index Registry (DIR) with the [employer] (ACR). RADIATION OPTIMIZATION: All CT scans at this facility use at least one of these dose optimization te chniques: automated exposure control; mA and/or kV adjustment per patient size (includes targeted exa ms where dose is matched to clinical indication); or iterative reconstruction.
[2022-09-24 13:31] VITALS: BP 136/72; PULSE 83; RESP 17; TEMP 36.3; O2SAT 97
--- NOTE | 2022-09-24 14:43 | W.ORTHOCONSU ---
Assessment and Plan Assessment and plan (1) Dislocation of right shoulder joint: Status: Acute Assessment and plan: 76-year-old female about 8 months status post right reverse total shoulder arthroplasty (subscap repair) and biceps tenodesis Patient describes overall doing well, playing pickle ball, right head eye bruise from pickleball, was simply gently closing a door and felt her shoulder dislocate. Much more painful this time than the prior episode. No other injuries. Denies any significant #throughout the right upper extremity. Exam shows right shoulder deformity. Guarded due to pain, limited exam. Obvious dislocation. Right shoulder x-rays ordered reviewed showing anterior R TSA dislocation without signs of implant loosening or failure glenoid or humerus. No periprosthetic fracture. Previously suffered anterior right reverse dislocation on 03/21/2022 reduced without difficulty in the emergency room. WBC was borderline elevated, ESR normal, and CRP mildly elevated. Surgery 01/22/2022 with profound glenohumeral arthritis and deficient superior rotator cuff. The subscapularis was peeled and repaired. Humeral insert is +6 mm. Regular without any additional constraint. Preoperative deformity included 12.5 degrees superior inclination and 5.5 degrees retroversion. Probable failure of the subscapularis repair. Discussed thoroughly with emergency room, unfortunate, no rooms available for patient treatment at this time. Will attempt to transfer the patient to day surgery for regional anesthetic and reduction. Given second instability episode, will obtain post?reduction CT scan measure prosthesis alignment and consider staged synovial biopsy rule out indolent C?acnes infection or single-stage revision surgery. The risks, benefits, and alternatives were thoroughly discussed. Patient was counseled regarding pain management, expected postoperative course, and recovery timeline. All questions were answered. Informed consent was obtained. Patient agrees and understands treatment plan. Follow up depending on reduction, labs, and CT results Breathing comfortably on room air. No coughs or wheezes. 2+ left radial pulse. Regular rate and rhythm. PFSH All Active Problems (Updated 09/24/22 @ 15:12 by Janis Thurston NP) Anterior dislocation of right shoulder (Acute) Mucositis oral (Acute) Dislocation of right shoulder joint (Acute 03/21/22) With Reverse TSA Status post reverse total arthroplasty of right shoulder (Acute 01/22/22) Chronic pain syndrome (Chronic) 2021-on tramadol-1/day, prescribed at [facility], drug agreement 04/2021 Vitamin B 12 deficiency (Acute 06/07/14) Lichen planus (Acute 12/04/13) Hypothyroidism (Chronic) Degenerative arthritis (Acute) s/p bilat TKR Cervical radiculopathy (Acute 04/09/15) Atrophic vaginitis (Acute 06/13/15) Asthma (Chronic) Neck pain (Chronic) She has serious arthritis and spinal stenosis in her neck. The ablation may help her and/or cure her. However the likelihood of necessary surgical intervention is still in the picture. We talked a little about this. The pain medicine is only helping her get by at this point. I also talked to her about trying to slow down a bit at work and may be consider intermediate. She appears very tired today. Tubular adenoma (Acute ~02/2020) background showed lymphocytic colitis, repeat colo [address] 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 Digital mucinous cyst of finger of right hand Foot pain, right Gastrointestinal bleeding UPPER GI BLEED 11/2011 SECONDARY TO Duodenal AVM Hammertoe of right foot Hip pain, bilateral Low back pain Bass metatarsalgia No-show for appointment Rotator cuff tear arthropathy of right shoulder Shingles Skin lesion Tendonitis of long head of biceps brachii of right shoulder Trochanteric bursitis, right hip Steroid injection: 03/24/2021; 05/13/21 (pcp) Vitamin D deficiency Surgical History (Updated 08/18/22 @ 10:17 by Angie Hamm MD, [place]) Appendectomy Arthroplasty of knee (~1989) bilateral Cortical cataract of left eye Cortical cataract of right eye Surgical bilateral History of appendectomy Hx of cataract surgery Hx of hammer toe correction x2 Nuclear sclerotic cataract of left eye Nuclear sclerotic cataract of right eye Posterior subcapsular age-related cataract of left eye Posterior subcapsular age-related cataract, right eye Replacement of total knee joint 09/02; B/L Trigger finger (05/20/21) Status post left ring finger trigger release Family History Mother , 76 Personal history of malignant neoplasm MOUTH Heart disease Stroke Sister Essential hypertension Hyperlipidemia Brother Essential hypertension Lung cancer Grandfather Essential hypertension Heart disease Grandfather Diabetes Grandmother Stroke Sister No problems noted. Sister No problems noted. Sister No problems noted. Sister No problems noted. Brother No problems noted. Brother No problems noted. Brother No problems noted. Son Stroke Daughter No problems noted. Social History Smoking/Tobacco Use Status: Former Tobacco Use tobacco type: cigarettes Quit Date: 05/24/67 Tobacco: How many years used: 10 Second Hand Exposure: Yes Smoking risk assessment performed?: Yes Alcohol Intake: current Alcohol Intake frequency: a few times a week Alcohol type: beer, wine and hard liquor Drug use: Never Substance use type: does not use Household members: family Do you need help understanding health information?: Never Pets and animals: Yes Pets and animals: cat(s) and dog(s) Sexually active: No Current gender identity: female What is your relationship status?: How often do you talk on the phone with friends or family?: three or more times per week How often do you get together with friends or relatives?: three or more times per week How often do you attend mandaeism or adventist services?: 1-3 times per year Do you belong to any clubs or organized social groups?: no Panel score (0-1 are the most socially isolated patients): 1 Evita/Buddhist: No preference Special evita needs: No Seatbelt use: always Helmet use: No 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
--- NOTE | 2022-09-24 14:58 | DI.RAD_ITS ---
Exam(s) XR SHOULDER RT COMPLETE 2+V EXAM: XR SHOULDER RT COMPLETE 2+V CLINICAL HISTORY: RTSA dislocation. TECHNIQUE: 2D digital imaging was performed. Three images were obtained. Grashey and Y views were o btained. COMPARISON: CR XR SHOULDER RT COMPLETE 2+V from 08/12/2022 FINDINGS: BONES: There are findings of a right total reverse shoulder replacement. No osseous fractures identi fied. JOINTS: There is an anterior dislocation of the right total reverse shoulder replacement. There are degenerative changes seen at the acromioclavicular joint. SOFT TISSUE: Normal. IMPRESSION: Anterior dislocation of the right total reverse shoulder replacement. DATA REPOSITORY: RADIATION DOSE DELIVERED:
--- NOTE | 2022-09-24 15:08 | ED.GENADUL_ITS ---
Discharge Plan Disposition Patient Disposition: Admit to [facility] Condition: Stable Discharge Details Clinical Impression: Anterior dislocation of right shoulder Attending Provider: Hitesh Alvarez Primary Care Provider: Angie Hamm ED Provider: Janis Thurston Medical Decision Making Dr. Alvarez orthopedic surgeon over here for patient evaluation. He requests transferring patient to the surgery to assist with joint reduction. CMS intact distally, remedies [place] warm dry. Radial pulses palpated. Patient last ate at approximately 1030. Had an avocado. Patient reports that this has happened multiple times in the past. No other associated symptoms or complaints at this time. She does have a past medical history of hypothyroidism, asthma, bronchospasm arthritis. HPI General Mode of arrival: wheelchair . Date/Time Provider Initiated Documentation: 09/24/22 14:01 . Limitations to Documentation: no limitations . Information obtained by: patient, RN notes reviewed and old records reviewed . HPI Narrative: 76-year-old female presents to the ER with chief complaint of right shoulder dislocation. She has had it dislocated twice now, she does have a history of a shoulder replacement. She does have hardware noted in her shoulder. She reports that she was pulling open a door when it spontaneously dislocated. Related Data Home Medications Medication Instructions Recorded Confirmed cyanocobalamin (vitamin B-12) 1,000 mcg PO DAILY #100 tab-caps 06/10/14 09/17/22 1,000 mcg tablet (Vitamin B-12) cholecalciferol (vitamin D3) 125 5,000 unit PO DAILY #90 caps 01/22/20 09/17/22 mcg (5,000 unit) capsule albuterol sulfate 90 mcg/actuation 2 puff inhalation 6XD PRN 10/02/20 09/17/22 aerosol inhaler shortness of breath or wheezing #18 grams acetaminophen 500 mg capsule 1,000 mg PO Q8H PRN PRN #15 caps 05/20/21 09/17/22 celecoxib 200 mg capsule 200 mg PO DAILY #90 caps 07/01/22 09/17/22 clobetasol 0.05 % topical cream 1 applic topical DAILY lichen 08/17/22 09/17/22 planus #60 grams levothyroxine 112 mcg tablet 112 mcg PO DAILY #90 tab-caps 08/17/22 09/17/22 tramadol 50 mg tablet 50 mg PO QHS PRN pain #35 tabs 03/28/23 04/27/23 magic mouth wash 10 ml PO QID PRN #300 mL 09/17/22 09/17/22 Previous Rx's Medication Instructions Recorded cholecalciferol (vitamin D3) 125 5,000 unit PO DAILY #90 caps 01/22/20 mcg (5,000 unit) capsule albuterol sulfate 90 mcg/actuation 2 puff inhalation 6XD PRN 10/02/20 aerosol inhaler shortness of breath or wheezing #18 grams acetaminophen 500 mg capsule 1,000 mg PO Q8H PRN PRN #15 caps 05/20/21 celecoxib 200 mg capsule 200 mg PO DAILY #90 caps 07/01/22 clobetasol 0.05 % topical cream 1 applic topical DAILY lichen 08/17/22 planus #60 grams levothyroxine 112 mcg tablet 112 mcg PO DAILY #90 tab-caps 08/17/22 tramadol 50 mg tablet 50 mg PO QHS PRN pain #35 tabs 08/18/22 magic mouth wash 10 ml PO QID PRN #300 mL 09/17/22 Allergies Allergy/AdvReac Type Severity Reaction Status Date / Time Carbapenems Allergy Severe Skin Rash Verified 09/17/22 16:23 cephalexin Allergy Severe Skin Rash Verified 09/17/22 16:23 codeine Allergy Severe RASH Verified 09/17/22 16:23 Penicillins Allergy Severe Percy Verified 09/17/22 16:23 Denis Syndrome Sulfa (Sulfonamide Allergy Severe Skin Rash Verified 09/17/22 16:23 Antibiotics) Tetracyclines Allergy Severe Percy Verified 09/17/22 16:23 Denis Syndrome BETALACTAMS Allergy Severe Skin Rash Uncoded 09/17/22 16:23 General Stated Complaint: Orthopedic OH: 4 Review of Systems All systems reviewed & are unremarkable except as noted in HPI and below Musculoskeletal Musculoskeletal: Reports as per HPI and Reports arthralgias PFSH All Active Problems Anterior dislocation of right shoulder (Acute) Mucositis oral (Acute) Dislocation of right shoulder joint (Acute 03/21/22) With Reverse TSA Status post reverse total arthroplasty of right shoulder (Acute 01/22/22) Chronic pain syndrome (Chronic) 2021-on tramadol-1/day, prescribed at [facility], drug agreement 04/2021 Vitamin B 12 deficiency (Acute 06/07/14) Lichen planus (Acute 12/04/13) Hypothyroidism (Chronic) Degenerative arthritis (Acute) s/p bilat TKR Cervical radiculopathy (Acute 04/09/15) Atrophic vaginitis (Acute 06/13/15) Asthma (Chronic) Neck pain (Chronic) She has serious arthritis and spinal stenosis in her neck. The ablation may help her and/or cure her. However the likelihood of necessary surgical intervention is still in the picture. We talked a little about this. The pain medicine is only helping her get by at this point. I also talked to her about trying to slow down a bit at work and may be consider nursing home. She appears very tired today. Tubular adenoma (Acute ~02/2020) background showed lymphocytic colitis, repeat colo [address] 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 Digital mucinous cyst of finger of right hand Foot pain, right Gastrointestinal bleeding UPPER GI BLEED 11/2011 SECONDARY TO Duodenal AVM Hammertoe of right foot Hip pain, bilateral Low back pain Bass metatarsalgia No-show for appointment Rotator cuff tear arthropathy of right shoulder Shingles Skin lesion Tendonitis of long head of biceps brachii of right shoulder Trochanteric bursitis, right hip Steroid injection: 03/24/2021; 05/13/21 (pcp) Vitamin D deficiency Surgical History Appendectomy Arthroplasty of knee (~1989) bilateral Cortical cataract of left eye Cortical cataract of right eye Surgical bilateral History of appendectomy Hx of cataract surgery Hx of hammer toe correction x2 Nuclear sclerotic cataract of left eye Nuclear sclerotic cataract of right eye Posterior subcapsular age-related cataract of left eye Posterior subcapsular age-related cataract, right eye Replacement of total knee joint 09/02; B/L Trigger finger (05/20/21) Status post left ring finger trigger release Family History Mother , 76 Personal history of malignant neoplasm MOUTH Heart disease Stroke Sister Essential hypertension Hyperlipidemia Brother Essential hypertension Lung cancer Grandfather Essential hypertension Heart disease Grandfather Diabetes Grandmother Stroke Sister No problems noted. Sister No problems noted. Sister No problems noted. Sister No problems noted. Brother No problems noted. Brother No problems noted. Brother No problems noted. Son Stroke Daughter No problems noted. Social History Smoking/Tobacco Use Status: Former Tobacco Use tobacco type: cigarettes Quit Date: 05/24/67 Tobacco: How many years used: 10 Second Hand Exposure: Yes Smoking risk assessment performed?: Yes Alcohol Intake: current Alcohol Intake frequency: a few times a week Alcohol type: beer, wine and hard liquor Drug use: Never Substance use type: does not use Household members: family Do you need help understanding health information?: Never Pets and animals: Yes Pets and animals: cat(s) and dog(s) Sexually active: No Current gender identity: female What is your relationship status?: How often do you talk on the phone with friends or family?: three or more times per week How often do you get together with friends or relatives?: three or more times per week How often do you attend latter day or sabianist services?: 1-3 times per year Do you belong to any clubs or organized social groups?: no Panel score (0-1 are the most socially isolated patients): 1 Evita/Orthodox: No preference Special evita needs: No Seatbelt use: always Helmet use: No Drive intox or ride w/intox 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 Do you feel safe at home: Yes Do you feel safe in your relationship?: Yes Exam Extrem Right upper extremity: normal capillary refill and shoulder/upper arm Details: abnormal to inspection, tenderness and deformity Course Vital Signs Vital signs: Vital Signs Temperature 36.3 C L 09/24/22 13:31 Pulse 83 09/24/22 13:31 Respiratory Rate 17 09/24/22 13:31 Blood Pressure 136/72 09/24/22 13:31 Pulse Oximetry 97 05/04/23 13:31 Temperature 36.3 C L 09/24/22 13:31 Temperature Source Tympanic 09/24/22 13:31 Pulse 83 09/24/22 13:31 Respiratory Rate 17 09/24/22 13:31 Blood Pressure 136/72 09/24/22 13:31 Blood Pressure Position Sitting 09/24/22 13:31 Pulse Oximetry 97 09/24/22 13:31 Oxygen Delivery Method Room Air 09/24/22 13:31 Oxygen Flow Rate 0 09/24/22 13:31 Pain Level 10 09/24/22 13:31
--- NOTE | 2022-09-24 15:15 | DI.RAD_ITS ---
Exam(s) XR SHOULDER RT COMPLETE 2+V EXAM: XR SHOULDER RT COMPLETE 2+V CLINICAL HISTORY: RTSA dislocation, check reduction. TECHNIQUE: 2D digital imaging was performed. COMPARISON: Prior x-rays 09/24/2022 FINDINGS: Two views There is successful realignment of the reverse prosthesis. No fractures evident. IMPRESSION: Successful prosthesis realignment. DATA REPOSITORY: RADIATION DOSE DELIVERED:
[2022-09-24 15:49] VITALS: BP 130/76; PULSE 82; RESP 16; TEMP 37; O2SAT 95
--- NOTE | 2022-09-24 15:56 | W.PM.DSUDISC ---
Date of service: 09/24/22 Time of Service: 17:00 Discharge Plan Disposition Patient Disposition: Home Discharge Details Reason For Visit: Dislocated Shoulder Attending Provider: Hitesh Alvarez Primary Care Provider: Angie Hamm Home Meds and New Rx's Prescriptions: Continued magic mouth wash 10 ml PO QID PRN Qty: 300 1RF Rx Instructions: lidocaine/benadryl/maalox 1:1:1 solution cyanocobalamin (vitamin B-12) [Vitamin B-12] 1,000 MCG tablet 1,000 mcg PO DAILY Qty: 100 cholecalciferol (vitamin D3) 125 mcg (5,000 unit) capsule 5,000 unit PO DAILY Qty: 90 3RF albuterol sulfate 90 mcg/actuation HFA aerosol inhaler 2 puff IH 6XD PRN (Reason: shortness of breath or wheezing) Qty: 18 0RF celecoxib 200 mg capsule 200 mg PO DAILY Qty: 90 1RF levothyroxine 112 mcg tablet 112 mcg PO DAILY Qty: 90 3RF Rx Instructions: Brand name Synthroid medically necessary clobetasol 0.05 % cream 1 applic Topical DAILY Qty: 60 1RF Rx Instructions: Apply a small amount to vulva daily tramadol 50 mg tablet 50 mg PO QHS PRN (Reason: pain) Qty: 35 4RF Rx Instructions: ok to OCCASIONALLY take an extra tramadol acetaminophen 500 mg capsule 1,000 mg PO Q8H PRN PRNQty: 15 0RF Discharge Instructions Additional Instructions: Surgery: Right prosthetic shoulder dislocation closed reduction Activity: Sling for comfort. Gentle and protected use right upper extremity until follow-up. Prescriptions: No new Dressings: None Follow-up: 10-[address] Alvarez Please call the office during business hours with any questions or concerns. Discharge Orders Discharge Orders: Discharge Order (Routine); Ordered 09/24/22 Ordered By: Hitesh Alvarez DS: Diagnosis Discharge Diagnosis (1) Dislocation of right shoulder joint: Status: Acute
[2022-09-24 16:10] LABS: Abs Immature Grans 0.09 10^3/uL (0.0-0.06); Absolute Basophil Count 0.09 10^3/uL (0.0-0.2); Absolute Eosinophil Count 0.19 10^3/uL (0.0-0.7); Absolute Lymphocyte Count 3.52 10^3/uL (1.2-3.4); Absolute Monocyte Count 0.74 10^3/uL (0.1-0.8); Absolute Neutrophil Count 5.22 10^3/uL (1.2-6.7); Basophils % 0.9; Eosinophils % 1.9; HCT 45.5 % (36.0-46.0); HGB 15.1 g/dL (11.2-15.7); Immature Grans % 0.9; Lymphocytes % 35.7; MCH 29.5 pg (27.0-33.0); MCHC 33.2 % (32.0-36.0); MCV 89 fL (80-95); MPV 9.8 fL (8.0-11.0); Monocytes % 7.5; Neutrophils % 53.1; Platelet Count 368 10^3/uL (130-400); RBC 5.12 10^6/uL (3.93-5.22); RDW 13.1 % (11.7-14.6); RDW-SD 42.6 fL; WBC 9.85 10^3/uL (4.4-10.8)
[2022-09-24 16:12] LABS: ESR 21 mm/hr (0-30)
--- NOTE | 2022-09-24 16:13 | W.ANESNERVE ---
Nerve Block Single Injection Procedure Date and Time Date Performed: 09/24/22 Procedure Start: 16:08 Location Where Procedure Performed Procedure Location: Day Surgery Unit Reason Performed: Acute Pain Management (dislocated shoulder. Block performed for both acute pain management, but also to hopefully aid in reduction. ) Pain Diagnosis: Shoulder Pain Requesting Provider: Hitesh Alvarez Timeout Performed Timeout Performed: Yes Monitoring Used ECG, Blood Pressure and SpO2 Sterility Sterility: Hand Hygiene, Surgical Cap, Surgical Mask, Sterile Gloves and Chlorhexidine Sedation Given During Procedure Sedation Given (Indicate Dose Given): No Sedation given Patient Mental Status Patient Mental Status: Awake Nerve Block 1st Nerve Block: Laterality: Right Block Type: Interscalene Ultrasound Image Saved?: Yes Needle / Catheter Used: 100mm SonoPlex II Local Anesthetic Bolus (Indicate Dose Given): Lidocaine used for local infiltration of skin, Injected in 3-5ml increments after negative blood aspiration and Chloroprocaine 3% Dose:: 20 mL Additives (Indicate Dose Given): None Ultrasound: Sterile probe cover and gel used Nerve Stimulator: Supplement to Ultrasound use and No twitch or parasthesia noted < 0.5 mA Paresthesia: None and Right (? paresthesia vs pain while traveling out of/through [facility]. ) Paresthesia Duration: Transient Procedure Tolerated: No Complications Procedure Outcome: Successful Procedure Comment: was asked to perform interscalene block for shoulder relocation (not appropriately NPO, mac/GA not an option). zero health history change since her shoulder replacement, no noted contraindications to nerve block. Risks discussed of block failure, infection, damage to blood vessels, and the the risk of permanent nerve injury. She understands the risks and would like to proceed. Performed By: Willy Le
[2022-09-24 16:20] VITALS: BP 112/67; PULSE 77; RESP 16; TEMP 36.7; O2SAT 94
[2022-09-24 16:29] LABS: C-Reactive Protein 0.21 mg/dL (0.0-0.3)
--- NOTE | 2022-09-24 17:58 | DI.VRAD_ITS ---
PROCEDURE INFORMATION: Exam: CT Right Upper Extremity Without Contrast, Shoulder Exam date and time: 09/24/2022 4:56 PM Age: 76 years old Clinical indication: Other: Rtsa dislocation TECHNIQUE: Imaging protocol: Computed tomography of the right upper extremity without contrast. Exam focused on the shoulder. COMPARISON: CR XR SHOULDER RT COMPLETE 2+V 09/24/2022 2:42 PM FINDINGS: Bones/joints: Right shoulder reverse prosthesis. No dislocation or subluxation. No periprosthetic fracture. Soft tissues: No soft tissue hematoma. IMPRESSION: Appropriate position/alignment of right shoulder prostheses. Dictated and Authenticated by: Femi Jacob MD. Ordering:NISA Proctor MD
--- NOTE | 2022-09-24 17:58 | DI.VRAD_ITS ---
PROCEDURE INFORMATION: Exam: XR Right Shoulder Exam date and time: 09/24/2022 5:06 PM Age: 76 years old Clinical indication: Other: Rtsa dislocation, check reduction TECHNIQUE: Imaging protocol: Radiologic exam of the right shoulder. Views: 2 or more views. COMPARISON: CT UPPER EXTREMITY RT WO 09/24/2022 4:56 PM FINDINGS: Bones/joints: Right shoulder reversed arthroplasty components. No periprosthetic fracture. No dislocation. Soft tissues: Normal. IMPRESSION: No evidence of dislocated prosthesis. Dictated and Authenticated by: Femi Jacob MD. Ordering:NISA Proctor MD
== END 2022-09-24 15:33 | disposition home or self-care (01) ==
LOC: ER 15:12 → DSU 15:33
PROVIDERS: Emergency Provider Registered Nurse Emergency; PCP Family Medicine; Visit Provider Student in an Organized Health Care Education/Training Program
PROC: (CPT 23700; principal; 2022-09-24 15:30)
DX: T84.028A Dislocation of other internal joint prosthesis, initial encounter (principal); X50.9XXA Other and unspecified overexertion or strenuous movements or postures, initial encounter; Z96.611 Presence of right artificial shoulder joint
CPT/HCPCS: 23650; 76942; 85652; 99283; 99285; 73030; 73200; 85025; 86140

== ENCOUNTER → 2022-10-06 11:03 | Outpatient (BNVA) | payer OTHER, SELFPAY | PROVIDERS: PCP Family Medicine; Referring Provider Family Medicine; Visit Provider Student in an Organized Health Care Education/Training Program | DX: S43.014A Anterior dislocation of right humerus, initial encounter (principal); X58.XXXA Exposure to other specified factors, initial encounter; T84.028A Dislocation of other internal joint prosthesis, initial encounter; Z96.611 Presence of right artificial shoulder joint | CPT/HCPCS: 99214 ==

== ENCOUNTER 2022-10-09 06:03 | Day surgery (SDC) | payer OTHER, SELFPAY ==
[2022-10-09] VITALS (10 sets, daily range): BP systolic 87–132; BP diastolic 51–82; PULSE 62–92; RESP 16–21; TEMP 36.2–36.7; O2SAT 92–97; BMI 26.7
--- NOTE | 2022-10-09 06:18 | W.ANESPRE ---
General Info Date of Service Date Performed: 10/09/22 Height: 5 ft 4 in Weight: 70.76 kg Body Mass Index (BMI): 26.7 Surgical Procedure: Operation Date: 10/09/22 07:40 Proposed Procedure Side Surgeon p Shoulder Reverse Total Arthroplasty Revision Right Hitesh Alvarez MD Meds Allergies and Home Medications Allergies Allergy/AdvReac Type Severity Reaction Status Date / Time Carbapenems Allergy Severe Skin Rash Verified 10/09/22 06:21 cephalexin Allergy Severe Skin Rash Verified 10/09/22 06:21 codeine Allergy Severe RASH Verified 10/09/22 06:21 Penicillins Allergy Severe Percy Verified 10/09/22 06:21 Denis Syndrome Sulfa (Sulfonamide Allergy Severe Skin Rash Verified 10/09/22 06:21 Antibiotics) Tetracyclines Allergy Severe Percy Verified 10/09/22 06:21 Denis Syndrome BETALACTAMS Allergy Severe Skin Rash Uncoded 10/08/22 11:24 Home Medication Medication Instructions Recorded cyanocobalamin (vitamin B-12) 1,000 mcg PO DAILY #100 tab-caps 06/10/14 1,000 mcg tablet (Vitamin B-12) cholecalciferol (vitamin D3) 125 5,000 unit PO DAILY #90 caps 01/22/20 mcg (5,000 unit) capsule albuterol sulfate 90 mcg/actuation 2 puff inhalation 6XD PRN 10/02/20 aerosol inhaler shortness of breath or wheezing #18 grams acetaminophen 500 mg capsule 1,000 mg PO Q8H PRN PRN #15 caps 05/20/21 celecoxib 200 mg capsule 200 mg PO DAILY #90 caps 07/01/22 clobetasol 0.05 % topical cream 1 applic topical DAILY lichen 08/17/22 planus #60 grams levothyroxine 112 mcg tablet 112 mcg PO DAILY #90 tab-caps 08/17/22 tramadol 50 mg tablet 50 mg PO QHS PRN pain #35 tabs 08/18/22 magic mouth wash 10 ml PO QID PRN #300 mL 09/17/22 Current Visit Medications: Current Medications Generic Name Dose Route Start Last Admin Trade Name Freq PRN Reason Stop Dose Admin Ringer's Solution 1,000 mls @ 30 mls/hr 10/09/22 06:00 IV 11/07/22 23:59 INFUSION RODOLFO Tranexamic Acid 1,000 mg/ 60 mls @ 360 mls/hr 10/09/22 06:00 Sodium Chloride IVPB 10/09/22 16:00 PREOP RODOLFO Cefazolin Sodium/Dextrose 2 gm in 50 mls @ 100 mls/hr 10/09/22 06:00 Ancef Duplex IVPB 10/09/22 16:00 PREOP RODOLFO IV Miscellaneous Supplies 1 each 10/09/22 06:00 Iv Access IV 11/07/22 23:59 DIRECTED RODOLFO Sodium Chloride 0 ml 10/09/22 06:00 Normal Saline Flush 10 Ml Syr IV 11/07/22 23:59 PRN PRN Sodium Chloride 0 ml 10/09/22 06:00 Normal Saline 10 Ml Vial IJ 11/07/22 23:59 DIRECTED PRN Sterile Water 0 ml 10/09/22 06:00 Water,Injection,Sterile 10 Ml Vial IJ 11/07/22 23:59 DIRECTED PRN PFSH Active Problems Active Problems: Problem Status Onset Code 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 T84.028A, Z96.611 Mucositis oral K12.30 Status post reverse total arthroplasty of right shoulder 01/22/22 Z96.611 Chronic pain syndrome G89.4 Vitamin B 12 deficiency 06/07/14 E53.8 Lichen planus 12/04/13 L43.9 Hypothyroidism E03.9 Degenerative arthritis M19.90 Cervical radiculopathy 04/09/15 M54.12 Atrophic vaginitis 06/13/15 N95.2 Asthma J45.909 Neck pain M54.2 Tubular adenoma ~02/2020 D36.9 Medical History Medical History Abnormal EKG 11/2021 Q waves anterior leads, normal echo with EF 55-60%, no wall motion abnl, EKG c/w false positive result Anterior dislocation of right shoulder Arthritis of hand, right Arthritis of right glenohumeral joint Bronchospasm Calculus, kidney Collagenous colitis 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 No further f/u needed Rotator cuff tear arthropathy of right shoulder Shingles Skin lesion Tendonitis of long head of biceps brachii of right shoulder Trochanteric bursitis, right hip Steroid injection: 03/24/2021; 05/13/21 (pcp) Vitamin D deficiency Surgical History Surgical History Appendectomy Arthroplasty of knee (~1989) bilateral Cortical cataract of left eye Cortical cataract of right eye Surgical bilateral History of appendectomy Hx of cataract surgery Hx of hammer toe correction x2 Nuclear sclerotic cataract of left eye Nuclear sclerotic cataract of right eye Posterior subcapsular age-related cataract of left eye Posterior subcapsular age-related cataract, right eye Replacement of total knee joint 09/02; B/L Trigger finger (05/20/21) Status post left ring finger trigger release Tobacco Smoking/Tobacco Use Status: Former Tobacco Use Passive smoking exposure: Yes Second hand exposure: Yes Alcohol Alcohol Intake: current Alcohol intake frequency: a few times a week Alcohol type: beer, wine and hard liquor Substance Use Substance use: Never Substance use type: does not use Vital Signs and Lab Results Lab Results Blood Type / Crossmatch: No Data to Display Complete Blood Count: White Blood Count 9.85 10^3/uL (4.4-10.8) 09/24/22 16:00 Red Blood Count 5.12 10^6/uL (3.93-5.22) 09/24/22 16:00 Hemoglobin 15.1 g/dL (11.2-15.7) 09/24/22 16:00 Hematocrit 45.5 % (36.0-46.0) 09/24/22 16:00 Platelet Count 368 10^3/uL (130-400) 09/24/22 16:00 Complete Metabolic Panel: C-Reactive Protein 0.21 mg/dL (0.0-0.3) 09/24/22 16:00 Liver Function Panel: No Data to Display Coagulation Panel: No Data to Display Cardiac Panel: No Data to Display Arterial Blood Gas: No Data to Display Venous Blood Gas: No Data to Display Pancreas Panel: No Data to Display Thyroid Panel: No Data to Display Infectious Disease: No Data to Display Blood Cultures: No Data to Display Toxicology Panel: No Data to Display Imaging and Studies Imaging and Studies Study information below may be from another EMR and interpreted by another provider. Please see original notes in EMR for more complete details. EKG Summary: DATE/TIME OF SERVICE: 11/18/21 1001 : 1945PERFORMING LOCATION: [facility] APPROVED REPORT Exam: Resting ECG Reason for Exam: Pre-operative Patient Location: O HR:71 bpm ECG Measurements Heart Rate 71 AXIS ID 104 P 52 QRSd 89 QRS 13 QT 380 T56 QTc 414 Conclusion Sinus rhythm...normal P axis, V-rate 60- 99 Poor R wave progression, possible Anterior infarct, old...Q >40mS, abnormal ST-T, V2-V5 Echocardiogram Summary: Date of Exam: 12/01/21Sex: F Admission Date: 12/01/21 : 1945 Age: 75 APPROVED REPORT EXAM: Comprehensive 2D, Doppler, and color-flow Echocardiogram Patient Location: Out-Patient [place] Tester: Sandra Lam RDCS (AE) Indications: Abnormal pre op EKG Other Information Study Quality: Good Conclusion Normal left ventricular wall thickness and chamber size. Estimated ejection fraction is 55 to 60%. Wall motion is normal Normal right ventricular size and systolic function Both atria are normal in size There is no structural or hemodynamically significant valvular disease Estimated right ventricular systolic pressure is 25 mmHg Anesthesia Assessment and Plan Anesthesia History Personal History: No History of Anesthesia Complications Family History: No Family History of Anesthesia Complications Exercise Tolerance Exercise Tolerance: Metabolic Equivalents>4 Pertinent Negatives Pertinent Negatives: No Symptoms of GERD, No Major Cardiovascular Symptoms or Complaints and No Major Pulmonary Symptoms or Complaints Cardiac & Pulmonary Exam Cardiac Exam: Normal S1/S2 Heart Sounds Pulmonary Exam: Clear Bilateral Breath Sounds Implantable Cardiac Device Does patient have a Pacemaker or an ICD?: No Airway Exam Known Difficult Airway: No Mallampati Class: 2 Mouth Opening: Normal (> 3cm) Thyromental Distance: Greater than 3 cm Neck Range of Motion: Full ROM Neck Circumference: Normal Teeth Condition: Normal Dentition ASA Classification ASA Score: ASA 2 Emergency Case?: No NPO Status NPO Status: NPO Clears >2 hours, Solids >8 hours Anesthesia Plan Resuscitation Status: Full Code Anesthesia Technique: General Anesthesia Airway Planned: Endotracheal Tube Pain Management: Surgeon and patient request nerve block Monitors Used: Standard Monitors
[2022-10-09] MEDS: Lactated Ringers 1,000 ML 30 ML IV (06:51)
--- NOTE | 2022-10-09 07:21 | PDOC.DSDIS_ITS ---
Date of service: 10/09/22 Time of Service: 13:00 Discharge Plan Disposition Patient Disposition: Home Discharge Details Attending Provider: Hitesh Alvarez Primary Care Provider: Angie Hamm Home Meds and New Rx's Prescriptions: New amoxicillin 500 mg capsule 500 mg PO TID 14 Days Qty: 42 0RF Bio-K plus 50 billion cell capsule,delayed release(DR/EC) 1 cap PO DAILY 14 Days Qty: 14 0RF naproxen 250 mg tablet 250 - 500 mg PO BID PRNQty: 40 0RF Rx Instructions: take with a meal oxycodone 5 mg tablet 5 - 10 mg PO Q4H MDD 30 mg PRN (Reason: moderate to severe pain) Qty: 18 0RF Continued magic mouth wash 10 ml PO QID PRN Qty: 300 1RF Rx Instructions: lidocaine/benadryl/maalox 1:1:1 solution cyanocobalamin (vitamin B-12) [Vitamin B-12] 1,000 MCG tablet 1,000 mcg PO DAILY Qty: 100 cholecalciferol (vitamin D3) 125 mcg (5,000 unit) capsule 5,000 unit PO DAILY Qty: 90 3RF albuterol sulfate 90 mcg/actuation HFA aerosol inhaler 2 puff IH 6XD PRN (Reason: shortness of breath or wheezing) Qty: 18 0RF celecoxib 200 mg capsule 200 mg PO DAILY Qty: 90 1RF levothyroxine 112 mcg tablet 112 mcg PO DAILY Qty: 90 3RF Rx Instructions: Brand name Synthroid medically necessary clobetasol 0.05 % cream 1 applic Topical DAILY Qty: 60 1RF Rx Instructions: Apply a small amount to vulva daily tramadol 50 mg tablet 50 mg PO QHS PRN (Reason: pain) Qty: 35 4RF Rx Instructions: ok to OCCASIONALLY take an extra tramadol acetaminophen 500 mg capsule 1,000 mg PO Q8H PRN PRNQty: 15 0RF Discharge Instructions Additional Instructions: Surgery: Right REVISION reverse total shoulder arthroplasty (up?sized glenosphere, added spacer, and constrained liner) Activity: Do not lift anything heavier than a coffee. You should keep your arm at your side in a neutral position at all times except for gentle range of motion exercises, physical therapy, and essential activities. You should use the sling whenever you are out of the house. You may have to adjust the abduction pillow or remove it for comfort. At home it is best to remove the sling and rest the arm on a pillow at your side or support the operative side with your other hand. A physical therapy prescription will be sent electronically to start in about 3 weeks. Modified revision protocol: Sling when out of the home for 4 weeks. Gentle/light use in a neutral position or near the body okay. AROM okay. Gradually advance to full range of motion after 4 weeks. Dynamic scapular stabilization and isometric strengthening weeks 6?10. Deltoid reeducation and full strengthening after 10 weeks. Prescriptions: Resume home celecoxib and tramadol for baseline pain Amoxicillin 500 mg take 1 3x per day to prevent an infection for 2 weeks Take a daily probiotic while using antibiotics (prescription or [id number]) Oxycodone 5 mg take 1?2 every 4-6 hours as needed for severe pain You may use bbdt-bet-uaffnmt Tylenol (acetaminophen) as needed for mild pain. These pain medications may be taken all at once or in different combinations as needed. Also, recommend Colace (docusate) as a stool softener as surgery and pain medici ne cause constipation. You may try faqq-vff-llkvgvw diphenhydramine (Benadryl) 25-50 mg nightly as a sleep aid Dressings: Leave dressing in place until follow-up. Keep clean and dry at all times. No showers please. Follow-up: 10-[address] Alvarez You may take off the leg compression stockings this evening at home. You may also leave them on a few days longer if you have a history of leg swelling or edema. Please call the office during business hours with any questions or concerns. Let us know right away if you develop any redness, drainage, fevers, chest pain, or trouble breathing. Do not drink alcohol or drive for at least 24 hours after anesthesia. 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
--- NOTE | 2022-10-09 07:27 | W.PM.OP ---
Date of service: 10/09/22 Time of Service: 07:30 Operative Note Operative Note DATE OF PROCEDURE: 10/09/22 PRE-OP DIAGNOSIS: Right reverse total shoulder arthroplasty instability POST-OP DIAGNOSIS: same PROCEDURE: Right REVISION reverse total shoulder arthroplasty, CPT #61281: Both humeral and glenoid components The assistant foreman was medically required in order to help assist in techniques above, which require positioning the arm, holding the arthroscope, and manipulating multiple instruments and sutures at the same time. This cannot be done without the help of an experienced assistant foreman. SURGEON: Hitesh Alvarez [employer]CHO[employer] OFFICE MANAGER: Olivia Patel ANESTHESIA TYPE: Local By Surgeon, General LMA/ETT and Primary Nerve Block Refer to Anesthesia Record ESTIMATED BLOOD LOSS: 75 PATHOLOGY: none sent COMPLICATIONS: None Patient was transported to: PACU Patient's condition: stable Implants: [employer] modular glenoid system glenosphere 39 +4 mm lateralized [employer] humeral insert size 36+3 mm combo 39 constrained [employer] humeral spacer size 36+6 mm Indications: The patient was diagnosed with the above conditions and appropriately indicated for surgical intervention. Please see complete medical record for details. Findings: Largely stable R TSA throughout range of motion with a moderately vulnerable widely externally rotated and abducted position that could be dislocated anterior once the patient was paralyzed with direct pressure posterior on the suture cup. Stable humeral suture cup and stem. Stable glenosphere and baseplate. Moderate joint effusion either from recent dislocation or possibly indolent infection. Soft tissue failure at prior subscapularis repair with suture remnants on bone and anterior suture cup. No significant damage to polyethylene liner. Procedure Description: In the operating room, general anesthesia was induced.? The patient was positioned beachchair on the operating room table.? All bony prominences were well-padded.? Preoperative antibiotics were administered.? Cefazolin 2 g was administered slowly without skin rash or issue once again.? Preference was to administer antibiotics to prevent introducing infection in this revision setting given mechanical instability low concern of actual infection. The shoulder was prepped and draped in the usual sterile fashion for shoulder arthroplasty.? The correct patient, procedure, and side of the procedure were all verified prior to incision. The prior deltopectoral incision was used to approach the anterior shoulder. Care was taken to bluntly dissect the previously used interval between the deltoid and the pectoralis major identified and mobilized the cephalic vein laterally. There was some scarring as expected in this previous surgical plane that was readily released. There was a large pseudocapsule over the anterior shoulder joint that was opened up and resected. Effusion was drained. Soft tissue samples from this capsule, subscapularis, and some posterior superior synovitis were obtained. Permanent sutures were removed from the anterior suture cup and bone from failed subscapularis repair. The shoulder was actually readily able to be dislocated now with a single finger between the glenoid and humeral components. The liner was removed from the suture cup atraumatically with rongeurs to break the seal and lever it out. A temporary +3 mm trial liner was placed to protect the suture cup. The suture cup was retracted posteriorly and glenosphere screw cleared of soft tissue. The screwdriver was used to remove the glenosphere setscrew. The glenosphere distractor was then applied and used to remove the glenosphere from the baseplate without difficulty. Additional soft tissue was resected from posterior superiorly anteriorly of some synovitis and rotator cuff remnant. The [id number] reamer was used over the baseplate to confirm appropriate space for an increased diameter 39 mm glenosphere. The trial liner was then removed from the suture cup. The retained prostheses and shoulder was treated as potentially infected with 6 L normal saline used to thoroughly irrigate and redundant and potentially impinging soft tissue was debrided from the margins. The baseplate and suture cup had excellent ingrowth and stability to the scapula and humerus. Trial liner was placed back on the suture cup to protect it. The up-sized glenosphere was then inserted onto the baseplate, impacted, and then secured with the setscrew. The humerus + 3 mm liner was then removed. Trialing was done with a +6 mm combination 36/39 liner with good stability, quite improved from prior, but deltoid and conjoined tendon were slightly under?tension. Tthe construct was built up to +9 mm using a +6 spacer and +3 combo liner. This construct demonstrated remarkably excellent stability with appropriately moderately high tension on the soft tissues. The trial spacer and liner were removed. A final +6 mm spacer and +3 mm CONSTRAINED combo liner was inserted. This construct was solid, it was impossible to dislocate the shoulder, with out undue tension on the soft tissues, deltoid, or conjoined tendon. Range of motion remained excellent without notable impingement or notching. The shoulder was copiously irrigated with Betadine and normal saline.? Vancomycin powder was distributed deeply about the shoulder and through subcutaneous tissues. Hemostasis was appropriate.? The deltopectoral interval was well approximated.? Subcutaneous tissue was irrigated then closed using 2-0 Monocryl in a buried interrupted fashion.? Skin was closed using 3-0 Monocryl in a buried subcuticular fashion.? Skin glue was applied to the incision.? A silver impregnated bandage was placed over the incision.? The extremity was placed into a shoulder immobilizer.? The patient awoke from anesthesia without complication and was taken to the recovery room in stable condition.
[2022-10-09] MEDS: ceFAZolin 2 GM/50 ML BAG IVPB (07:36)
--- NOTE | 2022-10-09 08:07 | W.ANESNERVE ---
Nerve Block Single Injection Procedure Date and Time Date Performed: 10/09/22 Procedure Start: : Location Where Procedure Performed Procedure Location: Day Surgery Unit Reason Performed: Postoperative Analgesia Requesting Provider: Hitesh Alvarez Timeout Performed Timeout Performed: Yes Monitoring Used ECG, Blood Pressure, SpO2 and See EMR for corresponding vital signs Sterility Sterility: Hand Hygiene, Surgical Cap, Surgical Mask, Sterile Gloves and Chlorhexidine Sedation Given During Procedure Sedation Given (Indicate Dose Given): Versed IV Dose:: 1mg Patient Mental Status Patient Mental Status: Sedate with meaningful communication Nerve Block 1st Nerve Block: Laterality: Right Block Type: Supraclavicular Ultrasound Image Saved?: Yes Needle / Catheter Used: 80mm SonoPlex II Local Anesthetic Bolus (Indicate Dose Given): Lidocaine used for local infiltration of skin, Injected in 3-5ml increments after negative blood aspiration, Bupivacaine 0.5% Dose:: 10ml and Exparel Dose:: 10ml Additives (Indicate Dose Given): None Ultrasound: Sterile probe cover and gel used Nerve Stimulator: Supplement to Ultrasound use and No twitch or parasthesia noted < 0.5 mA Paresthesia: Right (No nerve stim twitch noted, but pt. did have transient paresthesia, needle adjusted but pt. also unclear whether discomfort was in shoulder at needle location or down arm. No obvious nerve contact made.) Paresthesia Duration: Transient Procedure Tolerated: No Complications and Patient tolerated well Procedure Outcome: Successful Performed By: Jeff Angulo
--- NOTE | 2022-10-09 09:00 | DI.RAD_ITS ---
Exam(s) XR SHOULDER RT COMPLETE 2+V EXAM: XR SHOULDER RT COMPLETE 2+V CLINICAL HISTORY: Reverse TSA instability. TECHNIQUE: 2D digital imaging was performed. Two images were obtained. Grashey and Y views were obt ained. COMPARISON: CR,XR XR SHOULDER RT COMPLETE 2+V from 09/24/2022 FINDINGS: BONES: There are stable post operative changes present. No fracture or dislocation. The bones are os teopenic. JOINTS: The orthopedic hardware is in good position. No evidence of hardware loosening. There are d egenerative changes seen at the acromioclavicular joint characterized by joint space narrowing and makayla ny hypertrophy. SOFT TISSUE: Normal. IMPRESSION: Stable findings of a total reverse shoulder replacement. DATA REPOSITORY: RADIATION DOSE DELIVERED:
--- NOTE | 2022-10-09 11:09 | W.ANESPOSTOP ---
Postoperative Evaluation Date, Time and Location Date Performed: 10/09/22 Time Performed: 11:09 Patient Location: Day Surgery Unit Vital Signs Most Recent Imported Vital Signs: Most Recent Vital Signs Temp Pulse Resp BP Pulse Ox 36.5 C 66 19 96/53 L 97 10/09/22 10:55 10/09/22 10:55 10/09/22 10:55 10/09/22 10:55 10/09/22 10:55 Pain Score Most Recent Pain Score: Most Recent Pain Score Pain Level 4 10/09/22 07:29 Assessment Mental Status: Awake (Alert & Oriented to Patient Baseline) Airway and Respiratory Function: Patent airway with normal (patient baseline) respiratory exam Cardiovascular Function: Hemodynamically Stable Hydration Status: Adequately Hydrated Nausea & Vomiting: No Nausea or Vomiting Pain: Pt. Denies Any Pain Peripheral Nerve Block: Regional nerve block not resolved at time of post operative discharge
[2022-10-09] MEDS: ceFAZolin 1 GM/50 ML BAG IVPB (12:56)
[2022-10-09] MEDS: Normal Saline Flush 10 ML SYR IV (13:35)
== END 2022-10-09 13:45 | disposition home or self-care (01) ==
PROVIDERS: PCP Family Medicine; Visit Provider Student in an Organized Health Care Education/Training Program
PROC: (CPT 23472; principal; 2022-10-09 07:30)
DX: T84.028A Dislocation of other internal joint prosthesis, initial encounter (principal); Z96.611 Presence of right artificial shoulder joint
CPT/HCPCS: 23474; 76942; 73030; 87070; 87075; 87205; J0690; J1100; J1885; J2250; J2370; J2405; J2704

== ENCOUNTER 2022-10-21 11:27 | Outpatient (CLI) | payer OTHER, SELFPAY ==
--- NOTE | 2022-10-21 11:15 | DI.RAD_ITS ---
Exam(s) XR SHOULDER RT COMPLETE 2+V EXAM: XR SHOULDER RT COMPLETE 2+V INDICATION: F/U REVISION RTSA. COMPARISON: CR XR SHOULDER RT COMPLETE 2+V from 10/09/2022 TECHNIQUE: 2D digital imaging was performed. Two views. FINDINGS: There has been no change in the alignment of the reverse shoulder prosthesis. No surrounding bony trudi cencies are seen. DATA REPOSITORY: RADIATION DOSE DELIVERED:
== END 2022-10-21 11:28 | disposition home or self-care (01) ==
LOC: DIORS 11:27
PROVIDERS: PCP Family Medicine; Referring Provider Family Medicine; Visit Provider Student in an Organized Health Care Education/Training Program
DX: Z96.611 Presence of right artificial shoulder joint (principal); T84.028A Dislocation of other internal joint prosthesis, initial encounter
CPT/HCPCS: 73030

== ENCOUNTER 2022-11-16 11:04 | Outpatient (REF) | payer OTHER, SELFPAY ==
[2022-11-16 14:27] LABS: *AMPHETAMINES SCREEN URINE Negative (Negative); *BARBITURATES SCREEN URINE Negative (Negative); *BENZODIAZEPINES SCREEN URINE Negative (Negative); Cannabinoids THC Negative (Negative); Cocaine Screen,Urine Negative (Negative); METHADONE URINE SCREEN Negative (Negative); OPIATES URINE SCREEN Negative (Negative)
[2022-11-16 14:30] LABS: Tricyclic Antidepressants Negative (Negative)
[2022-11-21 06:29] LABS: O-desmethyltramadol 2367 ng/mL (Cutoff:25); Tramadol 941 ng/mL (Cutoff:25)
== END 2022-11-16 11:05 | disposition home or self-care (01) ==
LOC: LBN 11:04
PROVIDERS: PCP Family Medicine; Visit Provider Family Medicine
DX: G89.4 Chronic pain syndrome (principal); Z79.899 Other long term (current) drug therapy; Z51.81 Encounter for therapeutic drug level monitoring
CPT/HCPCS: 80307; 80373

== ENCOUNTER 2022-12-15 10:07 | Outpatient (CLI) | payer OTHER, SELFPAY ==
--- NOTE | 2022-12-15 09:30 | DI.RAD_ITS ---
Exam(s) XR SHOULDER RT COMPLETE 2+V EXAM: XR SHOULDER RT COMPLETE 2+V CLINICAL HISTORY: S/P RIGHT REVISION RTSA. TECHNIQUE: 2D digital imaging was performed. COMPARISON: CR XR SHOULDER RT COMPLETE 2+V from 10/21/2022 FINDINGS: Two views. Stable position alignment of the components of the reverse prosthesis. No fracture or loosening evid ent. IMPRESSION: Satisfactory stable appearance of the right shoulder reverse prosthesis. DATA REPOSITORY: RADIATION DOSE DELIVERED:
== END 2022-12-15 10:08 | disposition home or self-care (01) ==
LOC: DIORS 10:07
PROVIDERS: PCP Family Medicine; Referring Provider Family Medicine; Visit Provider Student in an Organized Health Care Education/Training Program
DX: T84.028A Dislocation of other internal joint prosthesis, initial encounter (principal); Z96.611 Presence of right artificial shoulder joint
CPT/HCPCS: 73030

== ENCOUNTER → 2023-01-08 00:25 | Outpatient (CLI) | payer OTHER, SELFPAY ==
--- NOTE | 2023-01-08 07:00 | DI.RAD_ITS ---
Exam(s) XR THORACIC SPINE COMPLETE EXAM: XR THORACIC SPINE COMPLETE CLINICAL HISTORY: upper back pain,M54.6. TECHNIQUE: 2D digital imaging was performed. Three views. COMPARISON: CR CHEST 2 VIEWS PA,LAT from 02/07/2016 FINDINGS: BONES: There is a minimal compression fracture of T6, unchanged from prior exam. There are degenerat angelica disc changes with some anterior disc space narrowing and small end plate osteophytes. There is no acute fracture or destructive lesion. ALIGNMENT: Within normal limits. SOFT TISSUE: Visualized lungs are clear. IMPRESSION: Stable minimal compression fracture of T6. mild degenerative disc changes. DATA REPOSITORY: RADIATION DOSE DELIVERED:
--- NOTE | 2023-01-08 07:00 | DI.RAD_ITS ---
Exam(s) XR CERVICAL SPINE COMP 4-5V EXAM: XR CERVICAL SPINE COMP 4-5V CLINICAL HISTORY: neck pain,M54.2. TECHNIQUE: 2D digital imaging was performed. COMPARISON: CR CERV SP.WITH OBL OR FLEX/EXT from 10/27/2013 FINDINGS: BONES: No fracture or destructive lesion. Vertebral bodies are unremarkable. Facet degenerative joan nges noted throughout. DISKS: Severe narrowing of the C5-6 and C6-7 disc spaces with small endplate osteophytes. Slight indra rowing of the C7-T1 disc. The remaining intervertebral disc spaces are maintained. Bilateral neura l foraminal narrowing a greatest at C4-5. ALIGNMENT: Straightening of the normal cervical lordosis secondary to degenerative changes. The odon toid and atlantoaxial articulations are normal. SOFT TISSUE: Normal. The lung apices are clear. IMPRESSION: Degenerative disc changes greatest at C5-6 and C6-7. Facet degenerative changes throughout. DATA REPOSITORY: RADIATION DOSE DELIVERED:
== END ==
PROVIDERS: PCP Family Medicine; Visit Provider Family Medicine
DX: M47.813 Spondylosis without myelopathy or radiculopathy, cervicothoracic region (principal); M99.61 Osseous and subluxation stenosis of intervertebral foramina of cervical region
CPT/HCPCS: 72050; 72072

== ENCOUNTER 2023-02-02 11:36 | Outpatient (CLI) | payer OTHER, SELFPAY ==
--- NOTE | 2023-02-02 11:15 | DI.RAD_ITS ---
Exam(s) XR SHOULDER RT COMPLETE 2+V EXAM: XR SHOULDER RT COMPLETE 2+V INDICATION: right shoulder f/u. COMPARISON: CR XR SHOULDER RT COMPLETE 2+V from 12/15/2022 TECHNIQUE: 2D digital imaging was performed. Two views. FINDINGS: There has been no change in the alignment of the reverse shoulder prosthesis. There are no suspiciou s surrounding bony lucencies. DATA REPOSITORY: RADIATION DOSE DELIVERED:
== END 2023-02-02 11:37 | disposition home or self-care (01) ==
LOC: DIORS 11:36
PROVIDERS: PCP Family Medicine; Referring Provider Family Medicine; Visit Provider Student in an Organized Health Care Education/Training Program
DX: Z47.1 Aftercare following joint replacement surgery; T84.028D Dislocation of other internal joint prosthesis, subsequent encounter; Z96.611 Presence of right artificial shoulder joint
CPT/HCPCS: 99213; 73030

== ENCOUNTER 2023-03-05 04:35 | Outpatient (CLI) | payer OTHER, SELFPAY ==
[2023-03-05 13:18] LABS: ALT 18 U/L (14-59); AST 11 U/L (15-37); Albumin 3.7 g/dL (3.4-5.0); Alkaline Phosphatase 95 U/L (46-116); Anion Gap 9.9 mmol/L (3-11); BUN 20 mg/dL (7-18); Bilirubin, Total 0.3 mg/dL (0.2-1.0); CO2 22.1 mmol/L (21.0-32.0); CREATININE 0.7 mg/dL (0.55-1.02); Chloride 106 mmol/L (98-107); Estimated GFR 89.58 (mL/min/1.73m2); Glucose 101 mg/dL (74-106); Potassium 4.1 mmol/L (3.5-5.1); Sodium 138 mmol/L (136-145); Total Protein 7.9 g/dL (6.4-8.2)
== END 2023-03-05 04:36 | disposition home or self-care (01) ==
LOC: LBO 04:35
PROVIDERS: PCP Family Medicine; Visit Provider Family Medicine
DX: E03.9 Hypothyroidism, unspecified (principal); D51.8 Other vitamin B12 deficiency anemias; G89.4 Chronic pain syndrome; M54.6 Pain in thoracic spine
CPT/HCPCS: 36415; 80053

== ENCOUNTER → 2023-04-20 02:37 | Outpatient (CLI) | payer OTHER, SELFPAY ==
--- NOTE | 2023-04-20 08:15 | DI.MRI_ITS ---
Exam(s) MR CERVICAL SPINE WO EXAM: MR CERVICAL SPINE WO CLINICAL HISTORY: constant neck pain and r radicular, failed PT,CERV RADICULOPATHY,M54.12 TECHNIQUE: Multiplanar multisequence MRI of the cervical spine was performed without intravenous con trast. COMPARISON: MR MRI - CERVICAL SPINE WO CONT from 03/25/2017 CR XR CERVICAL SPINE COMP 4-5V from 01/08/2023 FINDINGS: CERVICOMEDULLARY JUNCTION: Intact with no evidence of cerebellar tonsillar ectopia. No obvious abnor mality of the odontoid process. No evidence of Chiari 1 malformation. CERVICAL SPINAL CORD: No evidence of focal cord swelling nor focal cord atrophy. However, there is a significant focus of signal abnormality in the anterior half of the cervical spinal cord at the C6 l evel which measures 5 mm cephalocaudal by 4 mm AP by 3 mm wide. On the axial images this has appeara nce of invagination the inferior aspect of the spinal cord at this level to the level of the central canal. This is below the C5-6 level which does exhibit moderate spinal canal stenosis. Main conside ration is to rule out significant lesion at this level, given the appearance on the sagittal STIR seq uence. OSSEOUS:There are no cervical fractures evident. No significant osseous lesions in the cervical vert ebrae. There is straightening of the cervical curvature evident. INDIVIDUAL LEVELS: C2-3: No disc herniation nor central canal stenosis. No foraminal stenosis. No facet arthropathy. C3-4: Normal disc height. However, there is central subligamentous disc protrusion at this level. T his extends posteriorly 2.5 mm and is approximately 1 cm wide. This indents the anterior thecal sac but not the spinal cord and there is no significant central canal stenosis nor abnormal signal in the spinal cord at this level. Disc herniation does not extend into the exiting neural foramina. There are mild-moderate degenerative changes in both facet joints at this level. There is no significant foraminal stenosis on either side at this level.Mild facet arthropathy bilaterally. C4-5: Normal disc height. There is mild degenerative anterolisthesis of C4 upon C5. Moderate facet arthropathy bilaterally. There is right-sided annular bulging and the lateral right side Luschka sonia nt osteophyte. There is effacement of the anterior thecal sac at this level with mild-moderate centr al canal stenosis. There are moderate degenerative changes in both facet joints. Mild bilateral for aminal stenosis, more so on the right side. C5-6: This level exhibits chronic advanced disc space narrowing. Broad annular bulging. Moderate ce ntral spinal canal stenosis with AP canal measurement 7 mm and flattening of the thecal sac and the c ervical cord. Moderate degenerative changes in the facet joints. Moderate bilateral foraminal steno sis. C6-7: Chronic advanced disc space narrowing. Posteriorly there is mild symmetrical annular bulging w ithout a prominent disc herniation. Central canal dimensions lower normal. AP measurement of the ca nal at this level is 11 mm. There are mild degenerative changes in the facet joints. Mild bilateral foraminal stenosis seen at this level. Slightly more so on the left side. C7-T1: Normal disc height. No disc herniation but there is mild anterolisthesis C7 upon T1 related t o bilateral facet arthropathy. Central canal dimensions are within normal limits. Moderate facet de generative changes. No significant foraminal stenosis evident at this level. IMPRESSION: 1. Multilevel chronic degenerative disc disease as described per individual level above. There are d isc protrusions at C3-4 level, and C4-5 level. There is an element of central canal stenosis at C4-5 and C5-6 levels as well as multilevel foraminal stenosis as described above. 2. There is a significant focal area of signal abnormality in the anterior half of the cervical spina l cord at mid-lower C6 level. This measures approximately 5 x 4 x 3 mm. Although this may be relate d to the fact that there is multilevel canal stenosis, the appearance is not typical of mechanically induced myelitis. Recommend repeat study with IV contrast. Cannot exclude focal area of neoplasm. DATA REPOSITORY:
== END ==
PROVIDERS: PCP Family Medicine; Visit Provider Family Medicine
DX: M54.12 Radiculopathy, cervical region (principal)
CPT/HCPCS: 72141

== ENCOUNTER → 2023-05-04 01:51 | Outpatient (CLI) | payer OTHER, SELFPAY ==
--- NOTE | 2023-05-04 08:15 | DI.MRI_ITS ---
Exam(s) MR CERVICAL SPINE W EXAM: MR CERVICAL SPINE W CLINICAL HISTORY: abnl cervical MR,CERVICAL STENOSIS,NECK PAIN,SIGNAL ABNL TECHNIQUE: Multiplanar multisequence MRI of the cervical spine was performed. CONTRAST MATERIAL: IV Contrast: 14 ML of Dotarem contrast administered. COMPARISON: MR MR CERVICAL SPINE WO from 04/20/2023 FINDINGS: Postcontrast MRI of the cervical spine was obtained today. The precontrast portion of the examinatio n was performed 04/20/2023. BONES: Vertebral body heights are maintained. Multilevel degenerative changes are again seen in the c ervical spine and are unchanged compared to the MRI of the cervical spine from 04/20/2023. Bone edel ow signal intensity is within normal limits. CERVICAL CORD: Craniovertebral junction is unremarkable. The hyperintense lesion seen on the prior e xamination was visualized only on the T2 weighted images. SOFT TISSUES: Unremarkable. ENHANCEMENT: There is no abnormal enhancement in the spinal cord. The area of hyperintense signal se en on the several spine MRI from 04/20 shows no enhancement. IMPRESSION: There is no enhancement in the spinal cord, specifically no enhancement is seen at the C6 level to co rrespond to the hyperintense signal seen on the 04/20/2023 examination. The findings seen in the spi nal cord may represent myelopathy. MRI follow-up in 2-3 months is recommended, or earlier if symptom s worsen. DATA REPOSITORY:
[2023-05-04] MEDS: Normal Saline Flush 10 ML SYR IVP (14:42)
[2023-05-04] MEDS: Gadoterate meglumine 20 ML SYRINGE 14 ML IVP (14:43)
== END ==
PROVIDERS: PCP Family Medicine; Visit Provider Family Medicine
DX: M48.02 Spinal stenosis, cervical region (principal); R93.7 Abnormal findings on diagnostic imaging of other parts of musculoskeletal system
CPT/HCPCS: 72142

== ENCOUNTER → 2023-09-03 00:29 | Outpatient (CLI) | payer OTHER, SELFPAY ==
[2023-09-03 13:58] LABS: HCT 39.2 % (36.0-46.0); HGB 12.9 g/dL (11.2-15.7); MCH 30.1 pg (27.0-33.0); MCHC 32.9 % (32.0-36.0); MCV 92 fL (80-95); MPV 10.1 fL (8.0-11.0); Platelet Count 366 10^3/uL (130-400); RBC 4.28 10^6/uL (3.93-5.22); RDW 12.8 % (11.7-14.6); RDW-SD 43.2 fL; WBC 12.88 10^3/uL (4.4-10.8)
[2023-09-03 14:29] LABS: ALT 25 U/L (14-59); AST 17 U/L (15-37); Albumin 3.9 g/dL (3.4-5.0); Alkaline Phosphatase 90 U/L (46-116); Anion Gap 10.5 mmol/L (3-11); BUN 22 mg/dL (7-18); Bilirubin, Total 0.3 mg/dL (0.2-1.0); CO2 24.5 mmol/L (21.0-32.0); CREATININE 0.8 mg/dL (0.55-1.02); Calcium 9.3 mg/dL (8.5-10.1); Chloride 102 mmol/L (98-107); Estimated GFR 76.31 (mL/min/1.73m2); Glucose 114 mg/dL (74-106); Potassium 3.9 mmol/L (3.5-5.1); Sodium 137 mmol/L (136-145); TSH (W/Ref FT4) 4.16 uIU/mL (0.36-3.74); Total Protein 7.9 g/dL (6.4-8.2)
[2023-09-03 14:32] LABS: Hemoglobin A1C 5.8 % (<5.7)
[2023-09-03] MEDS: Gadoterate meglumine 20 ML SYRINGE 13 ML IVP (14:40)
--- NOTE | 2023-09-03 14:45 | DI.MRI_ITS ---
Exam(s) MR CERVICAL SPINE WO/W EXAM: MR CERVICAL SPINE WO/W CLINICAL HISTORY: abnormal mri-3 mo f/u,R93.7,POLYNEUROPATHY,CERV MYELOPATHY TECHNIQUE: Multiplanar multisequence MRI of the cervical spine was performed both pre and post contr ast infused sequences. Contrast injected = 13 mL Dotarem COMPARISON: MR MR CERVICAL SPINE WO from 04/20/2023 MR MR CERVICAL SPINE W from 05/04/2023 FINDINGS: CERVICOMEDULLARY JUNCTION: Intact with no evidence of cerebellar tonsillar ectopia. No obvious abnor mality of the odontoid process. No evidence of Chiari 1 malformation. CERVICAL SPINAL CORD: Again noted is the previously described focus of signal abnormality in the ante rior aspect of the cervical spinal cord at mid C6 level unchanged in size and this remains a solitary signal abnormality in the cord again does not exhibit enhancement. OSSEOUS:There are no cervical fractures evident. No significant osseous lesions in the cervical vert ebrae. Mild reversal of the normal curvature again noted. INDIVIDUAL LEVELS: C2-3: No disc herniation nor central canal stenosis. No foraminal stenosis. No facet arthropathy. C3-4: Central annular bulging at this level is again noted which indents the thecal sac but not the s miguel cord. Central canal dimensions are lower normal at this level. Mild facet joint degenerative changes. No foraminal stenosis on the right side. Mild foraminal stenosis on the left side. C4-5: This level relatively preserved disc height. Mild degenerative anterolisthesis of C4 upon C5. Moderate facet arthropathy bilaterally. Right-sided annular bulging and right-sided Luschka joint o steophyte again noted and there is effacement of the anterior thecal sac at this level with mild-mode rate central canal stenosis again noted at this level. Foraminal stenosis on the right side slightly more so than on the left side. Unchanged from previous. C5-6: This level again exhibits advanced chronic disc space narrowing and broad annular bulge during with mild-moderate central spinal canal stenosis and AP canal dimension 7-8 mm with flattening of the thecal sac and anterior aspect of the spinal cord there are moderate degenerative changes in the fac et joints again noted and moderate bilateral foraminal stenosis. C6-7: Chronic advanced disc space narrowing again noted. Posteriorly there is mild symmetrical annul ar bulging without a prominent disc herniation. Central canal dimensions are lower normal some degen erative changes in the facet joints again noted with moderate bilateral foraminal stenosis. C7-T1: Normal disc height. Mild anterolisthesis C7 upon T1 due to bilateral facet arthropathy centra l canal dimensions are within normal limits. Moderate degenerative changes in the facet joints. No significant foraminal stenosis on either side IMPRESSION: 1. Study is essentially unchanged from the prior MRI study of 04/20/2023 2. Again noted is the significant focal area of T2 bright signal abnormality in the anterior half of the cervical spinal cord C6 level, again noting approximately 5 x 4 x 3 mm, but not exhibiting enhanc ement following contrast injection. Lack of enhancement is somewhat against the possibility of a joselyn plasm and more likely in keeping with significant focal myelitis. 3. Chronic multilevel degenerative disc disease as described per individual level above. Central spi nal canal stenosis is noted at C4-5 and C5-6 levels. There is multi level foraminal stenosis. DATA REPOSITORY:
[2023-09-03 14:47] LABS: FREE T4 1.25 ng/dL (0.76-1.46)
== END ==
PROVIDERS: PCP Family Medicine; Visit Provider Family Medicine
DX: E03.9 Hypothyroidism, unspecified (principal); I10 Essential (primary) hypertension; M48.02 Spinal stenosis, cervical region; R73.09 Other abnormal glucose; G62.9 Polyneuropathy, unspecified
CPT/HCPCS: 80053; 85027; 72156; 83036; 84439; 84443

== ENCOUNTER 2023-10-12 13:55 | Outpatient (CLI) | payer OTHER, SELFPAY ==
--- NOTE | 2023-10-12 11:00 | DI.RAD_ITS ---
Exam(s) XR SHOULDER RT COMPLETE 2+V EXAM: XR SHOULDER RT COMPLETE 2+V CLINICAL HISTORY: F/U RIGHT RTSA. TECHNIQUE: 2D digital imaging was performed. Three views. COMPARISON: CR XR SHOULDER RT COMPLETE 2+V from 02/02/2023 FINDINGS: BONES: No acute fracture is present. No bony destructive lesion is seen. JOINTS: No dislocation present. There has been no change in the alignment of the reverse shoulder pr osthesis. SOFT TISSUE: Normal. IMPRESSION: Stable appearance of right shoulder prosthesis. DATA REPOSITORY: RADIATION DOSE DELIVERED:
== END 2023-10-12 13:56 | disposition home or self-care (01) ==
LOC: DIORS 13:55
PROVIDERS: PCP Family Medicine; Referring Provider Family Medicine; Visit Provider Student in an Organized Health Care Education/Training Program
DX: Z47.1 Aftercare following joint replacement surgery (principal); Z96.611 Presence of right artificial shoulder joint; T84.028D Dislocation of other internal joint prosthesis, subsequent encounter
CPT/HCPCS: 99213; 73030

== ENCOUNTER 2023-11-29 19:26 | Outpatient (REF) | payer OTHER, SELFPAY ==
[2023-11-29 16:46] LABS: *AMPHETAMINES SCREEN URINE Negative (Negative); *BARBITURATES SCREEN URINE Negative (Negative); *BENZODIAZEPINES SCREEN URINE Negative (Negative); Cannabinoids THC Negative (Negative); Cocaine Screen,Urine Negative (Negative); METHADONE URINE SCREEN Negative (Negative); OPIATES URINE SCREEN Negative (Negative)
[2023-11-29 16:49] LABS: Tricyclic Antidepressants Negative (Negative)
[2023-12-03 08:28] LABS: O-desmethyltramadol 15161 ng/mL (Cutoff:25); Tramadol 3926 ng/mL (Cutoff:25)
== END 2023-11-29 19:27 | disposition home or self-care (01) ==
LOC: LBN 19:26
PROVIDERS: PCP Family Medicine; Visit Provider Family Medicine
DX: G89.4 Chronic pain syndrome (principal)
CPT/HCPCS: 80307; 80373

== ENCOUNTER → 2024-08-01 12:55 | Outpatient (BNVA) | payer MEDICARE, OTHER, SELFPAY | PROVIDERS: PCP Family Medicine; Referring Provider Family Medicine; Visit Provider Student in an Organized Health Care Education/Training Program | DX: M65.332 Trigger finger, left middle finger (principal) | CPT/HCPCS: 99214 ==

== ENCOUNTER 2024-08-10 10:09 | Day surgery (SDC) | payer MEDICARE, OTHER, SELFPAY ==
--- NOTE | 2024-08-10 10:12 | W.PM.DSUDISC ---
Date of service: 08/10/24 Discharge Plan Disposition Patient Disposition: Home Discharge Details Attending Provider: Hitesh Alvarez Primary Care Provider: Angie Hamm Home Meds and New Rx's Prescriptions: Continued levothyroxine 112 mcg tablet 112 mcg PO DAILY Qty: 90 3RF Rx Instructions: Brand name Synthroid medically necessary; refill immediately (threw out pill bottle) cyanocobalamin (vitamin B-12) [Vitamin B-12] 1,000 MCG tablet 1,000 mcg PO DAILY Qty: 100 cholecalciferol (vitamin D3) 125 mcg (5,000 unit) capsule 5,000 unit PO DAILY Qty: 90 3RF albuterol sulfate 90 mcg/actuation HFA aerosol inhaler 2 puff IH 6XD PRN (Reason: shortness of breath or wheezing) Qty: 18 0RF clobetasol 0.05 % cream 1 applic Topical DAILY Qty: 60 4RF Rx Instructions: Apply a small amount to vulva daily magic mouth wash 10 ml PO QID PRN Qty: 300 1RF Rx Instructions: lidocaine/benadryl/maalox 1:1:1 solution lidocaine HCl 2 % solution 1 applic mucous membrane BID PRN (Reason: pain) Qty: 600 2RF tramadol 50 mg tablet 50 mg PO TID PRN (Reason: pain) Qty: 75 5RF Rx Instructions: refill early do to water damage. acetaminophen 500 mg capsule 1,000 mg PO Q8H PRN PRNQty: 15 0RF No Action ibuprofen [Ibuprofen IB] .ROUTE Patient Comments: 200 mg reported Discharge Instructions Additional Instructions: Surgery Left middle finger trigger release 08/10/24 Activity: Protect hand for a few weeks. Gently increase finger motion and hand gripping to prevent stiffness. Recommend elevation to minimize swelling and discomfort. Prescriptions: None Resume home medicines, use [id number] Tylenol (acetaminophen) as needed for mild pain and ibuprofen (Motrin) or naproxen (Aleve) as needed for moderate to severe pain and swelling. Dressings: Leave dressing in place for 3 days. May then remove and leave open to air or cover incision with Band-Aid. May get wet after 5 days. Follow-up: 10-[address] Alvarez Please call the office during business hours with any questions or concerns. Stand Alone Forms: Press Ganey (DSU) Referrals: Hitesh Alvarez MD [ [facility] STAFF PHYSICIAN] - 08/22/24 1:00 pm Discharge Orders Discharge Orders: Discharge Order (Routine); Ordered 08/10/24 Ordered By: Sam Foster DS: Diagnosis Discharge Diagnosis (1) Trigger finger, left middle finger: Status: Acute
[2024-08-10 10:19] VITALS: BP 104/89; PULSE 80; RESP 16; TEMP 36.3; O2SAT 99
--- NOTE | 2024-08-10 10:24 | W.PM.OP ---
Operative Note Operative Note PRE-OP DIAGNOSIS: Left middle trigger finger PROCEDURE: Left middle finger trigger release, CPT# 60566 SURGEON: Hitesh Alvarez SQUEEGEE TENDER: None None ANESTHESIA TYPE: Local By Surgeon Refer to Anesthesia Record ESTIMATED BLOOD LOSS: 1 TOURNIQUET TIME: 0 COMPLICATIONS: None Patient was transported to: same day Patient's condition: stable Indications: Please see complete medical record for details. Procedure Description: In the operating room, the patient was positioned supine on the stretcher. All bony prominences were padded. Preoperative antibiotics were omitted. The correct patient, procedure, and side of the procedure were all verified prior to beginning. Local anesthesia was induced about the site with 10cc of 1% lidocaine containing epinephrine buffered with 1 cc of sodium bicarbonate. The Left hand was prepped and draped in the usual sterile fashion. Proper analgesia was confirmed. A small volar longitudinal approach was made overlying the middle finger MCP joint. Soft tissues were swept to the sides and retracted to expose the A1 smooth. The release was started centrally with a knife and completed at the proximal and distal margins with tenotomy scissors. Care was taken to protect the flexor tendons. The tendons were inspected and showed some superficial degeneration, but no significant tearing. Appropriate flexor tendon excursion was confirmed. The patient readily demonstrated full range of motion of the finger without triggering. The small incision was irrigated and then dried. Hemostasis was appropriate. The incision was closed using 3-0 nylon in a horizontal mattress fashion. Xeroform was applied followed by gauze and the hand was gently compressed with an Robin bandage. The patient tolerated local anesthesia without complication and was transferred out of the operating room in a stable condition. Date of Procedure: 08/10/24
[2024-08-10] MEDS: Lidocaine 1% Multi-Dose W/EPI 1/100,000 50 ML VIAL (10:45)
[2024-08-10] MEDS: Sodium Bicarbonate 50 MEQ/50 ML VIAL (10:45)
[2024-08-10 11:14] VITALS: BP 111/62; PULSE 71; RESP 16; TEMP 36.7; O2SAT 98
== END 2024-08-10 11:38 | disposition home or self-care (01) ==
PROVIDERS: PCP Family Medicine; Visit Provider Student in an Organized Health Care Education/Training Program
PROC: (CPT 26055; principal; 2024-08-10 07:30)
DX: M65.332 Trigger finger, left middle finger (principal)
CPT/HCPCS: 26055; J2004

== ENCOUNTER → 2024-08-22 12:53 | Outpatient (BNVA) | payer MEDICARE, OTHER, SELFPAY | PROVIDERS: PCP Family Medicine; Referring Provider Family Medicine; Visit Provider Student in an Organized Health Care Education/Training Program | DX: M65.332 Trigger finger, left middle finger (principal) | CPT/HCPCS: 99024 ==

== ENCOUNTER 2024-09-07 11:39 | Emergency (ER) | payer MEDICARE, OTHER, SELFPAY ==
[2024-09-07 11:48] VITALS: BP 109/69; PULSE 137; RESP 16; TEMP 37.2; O2SAT 94
[2024-09-07 11:52] VITALS: BP 109/69; PULSE 137; RESP 16; TEMP 37.2; O2SAT 94
--- NOTE | 2024-09-07 12:03 | ED.GENADUL_ITS ---
Discharge Plan Disposition Patient Disposition: Home Condition: Stable Discharge Details Clinical Impression: Nausea vomiting and diarrhea Primary Care Provider: Angie Hamm ED Provider: Ruben Beard Home Meds and New Rx's Prescriptions: New ondansetron 4 mg tablet,disintegrating 4 mg PO Q8H PRN (Reason: nausea and vomiting) Qty: 30 0RF Continued levothyroxine 112 mcg tablet 112 mcg PO DAILY Qty: 90 3RF Rx Instructions: Brand name Synthroid medically necessary; refill immediately (threw out pill bottle) cyanocobalamin (vitamin B-12) [Vitamin B-12] 1,000 MCG tablet 1,000 mcg PO DAILY Qty: 100 cholecalciferol (vitamin D3) 125 mcg (5,000 unit) capsule 5,000 unit PO DAILY Qty: 90 3RF albuterol sulfate 90 mcg/actuation HFA aerosol inhaler 2 puff IH 6XD PRN (Reason: shortness of breath or wheezing) Qty: 18 0RF tramadol 50 mg tablet 50 mg PO TID PRN (Reason: pain) Qty: 75 5RF Rx Instructions: refill early do to water damage. acetaminophen 500 mg capsule 1,000 mg PO Q8H PRN PRNQty: 15 0RF Discharge Instructions Additional Instructions: Your blood work did not show any concerning findings at this time, I suspect you are suffering from a viral illness such as norovirus. Try to drink fluids as much as possible to stay hydrated. You can take [id number] Pepto-Bismol for diarrhea. If not improving within a few days follow-up with your primary care provider. If you feel significantly more ill or have severe abdominal pain or persistent vomiting return to the emergency department for reevaluation. HPI General Mode of arrival: ambulatory . Date/Time Provider Initiated Documentation: 09/07/24 11:52 . Limitations to Documentation: no limitations . Information obtained by: patient . History of Present Illness 78 year old F presents to the emergency department with the chief complaint of n/v/d, described as moderate, Patient started experiencing this day(s) (1) and it has been constant. No relieving factors improve symptom(s), No exacerbating factors reported . Patient notes denies chest pain, fever/chills and shortness of breath. Patient did receive the following treatments prior to arrival, none Related Data Home Medications ?Medication ?Instructions ?Recorded ?Confirmed cyanocobalamin (vitamin B-12) 1,000 mcg PO DAILY #100 tab-caps 06/10/14 09/07/24 1,000 mcg tablet (Vitamin B-12) cholecalciferol (vitamin D3) 125 5,000 unit PO DAILY #90 caps 01/22/20 09/07/24 mcg (5,000 unit) capsule albuterol sulfate 90 mcg/actuation 2 puff inhalation 6XD PRN 10/02/20 09/07/24 aerosol inhaler shortness of breath or wheezing #18 grams acetaminophen 500 mg capsule 1,000 mg (2 x 500 mg) PO Q8H PRN 05/20/21 09/07/24 PRN #15 caps levothyroxine 112 mcg tablet 112 mcg PO DAILY #90 tab-caps 09/20/23 09/07/24 tramadol 50 mg tablet 50 mg PO TID PRN pain #75 tabs 06/03/24 09/07/24 ondansetron 4 mg disintegrating 4 mg PO Q8H PRN nausea and 09/07/24 tablet vomiting #30 tabs Previous Rx's ?Medication ?Instructions ?Recorded cholecalciferol (vitamin D3) 125 5,000 unit PO DAILY #90 caps 01/22/20 mcg (5,000 unit) capsule albuterol sulfate 90 mcg/actuation 2 puff inhalation 6XD PRN 10/02/20 aerosol inhaler shortness of breath or wheezing #18 grams acetaminophen 500 mg capsule 1,000 mg (2 x 500 mg) PO Q8H PRN 05/20/21 PRN #15 caps levothyroxine 112 mcg tablet 112 mcg PO DAILY #90 tab-caps 09/20/23 tramadol 50 mg tablet 50 mg PO TID PRN pain #75 tabs 06/03/24 ondansetron 4 mg disintegrating 4 mg PO Q8H PRN nausea and 09/07/24 tablet vomiting #30 tabs Allergies Allergy/AdvReac Type Severity Reaction Status Date / Time Carbapenems Allergy Severe Skin Rash Verified 08/22/24 12:58 cephalexin Allergy Severe Skin Rash Verified 08/22/24 12:58 codeine Allergy Severe RASH Verified 08/22/24 12:58 Penicillins Allergy Severe Percy Verified 08/22/24 12:58 Denis Syndrome Sulfa (Sulfonamide Allergy Severe Skin Rash Verified 08/22/24 12:58 Antibiotics) Tetracyclines Allergy Severe Percy Verified 08/22/24 12:58 Denis Syndrome BETALACTAMS Allergy Severe Skin Rash Uncoded 08/22/24 12:58 General Stated Complaint: Nausea/Vomit/Diar OH: 4 Review of Systems All systems reviewed & are unremarkable except as noted in HPI and below Constitutional Constitutional: Denies chills and Denies fever(s) Cardiovascular Cardiovascular: Denies chest pain and Denies dyspnea Respiratory Respiratory: Denies cough and Denies dyspnea Gastrointestinal Gastrointestinal: Denies abdominal pain, Reports cramping, Reports nausea and Reports vomiting Exam Const General: no acute distress Orientation: alert HENMT Head: normal to inspection Ears: external ears normal General nose exam: external nose normal Mouth: moist mucous membranes Eyes General: appearance normal, both eyes and all related structures Neck Neck: normal visual inspection Resp Effort & Inspection: normal respiratory effort and able to speak in complete sentences Cardio Rate: tachycardic GI Palpation: soft and nontender Skin General skin exam: no rashes or lesions noted Neuro General: patient alert and patient oriented x3 Extrem General: normal to inspection Psych Mental Status: mental status grossly normal Course Vital Signs Vital signs: Vital Signs Temperature 37.2 C 09/07/24 11:48 Pulse 137 H 09/07/24 11:48 Respiratory Rate 16 09/07/24 11:48 Blood Pressure 109/69 09/07/24 11:48 Pulse Oximetry 94 09/07/24 11:48 Temperature 37.2 C 09/07/24 11:52 Pulse 137 H 09/07/24 11:52 Respiratory Rate 16 09/07/24 11:52 Blood Pressure 109/69 09/07/24 11:52 Pulse Oximetry 94 09/07/24 11:52 Oxygen Delivery Method Room Air 09/07/24 11:52 Oxygen Flow Rate 0 09/07/24 11:52 Pain Level 0 09/07/24 11:52 Medical Decision Making 78-year-old female comes in with 1 day of diarrhea and nausea vomiting. 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 She denies any severe abdominal pain or chest pain. No fevers or chills. She has not taken anything [id number] for her symptoms. She is alert and oriented on arrival and is noted be tachycardic and appears dehydrated. She has a soft nontender abdomen. Given her diarrhea and vomiting I suspect gastroenteritis, could have norovirus. Will check a CBC, CMP and Fluvid and treat with antiemetics and fluids and reassess. Given the lack of abdominal tenderness on exam I do not feel any imaging of her abdomen is acutely indicated Patient feels significantly better, labs reassuring. I suspect likely norovirus. She has no abdominal tenderness still and is tolerating p.o. She is stable for discharge and will follow-up with her PCP if needed, return precautions given Differential Diagnosis Differential Diagnosis: Norovirus, gastroenteritis Quality:SDOH Health Related Social Needs: No Data to Display PFSH All Active Problems (Updated 09/07/24 @ 13:37 by Ruben Beard MD) Nausea vomiting and diarrhea (Acute) Trigger finger, left middle finger (Acute) Reflux gastritis (Acute) Cervical myelopathy with cervical radiculopathy (Acute) Myelopathy (Acute) Neuropathy (Acute) Abnormal MRI, cervical spine (Acute) Cervical stenosis of spine (Acute) Atypical mole of neck (Acute) Thoracic back pain (Acute) Tongue lesion (Acute) 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 The ablation may help her and/or cure her. However the likelihood of necessary surgical intervention is still in the picture. We talked a little about this. The pain medicine is only helping her get by at this point. I also talked to her about trying to slow down a bit at work and may be consider halfway. She appears very tired today. Tubular adenoma (Acute ~02/2020) background showed lymphocytic colitis, repeat colo [address] Arina Adan Medical History (Updated 09/07/24 @ 13:37 by Ruben Beard MD) Anterior dislocation of right shoulder Dislocation of right shoulder joint (03/21/22) With Reverse TSA Arthritis of right glenohumeral joint No-show for appointment Abnormal EKG 11/2021 Q waves anterior leads, normal echo with EF 55-60%, no wall motion abnl, EKG c/w false positive result Pulmonary nodule 10/2021-small pulmonary nodule-5 mm on right, incidental finding in a non- smoker Repeat noncontrast CT in 2022 - no change. 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 Arthritis of hand, right Tendonitis of long head of biceps brachii of right shoulder Rotator cuff tear arthropathy of right shoulder Low back pain Digital mucinous cyst of finger of right hand Trochanteric bursitis, right hip Steroid injection: 03/24/2021; 05/13/21 (pcp) Hip pain, bilateral Hammertoe of right foot Bass metatarsalgia Foot pain, right Vitamin D deficiency Shingles Bronchospasm Skin lesion Calculus, kidney Collagenous colitis Gastrointestinal bleeding UPPER GI BLEED 11/2011 SECONDARY TO Duodenal AVM Surgical History Hx of hammer toe correction x2 Posterior subcapsular age-related cataract of left eye Nuclear sclerotic cataract of left eye Cortical cataract of left eye Hx of cataract surgery Posterior subcapsular age-related cataract, right eye Nuclear sclerotic cataract of right eye Cortical cataract of right eye Surgical bilateral Trigger finger (05/20/21) Status post left ring finger trigger release History of appendectomy Replacement of total knee joint 09/02; B/L Arthroplasty of knee (~1989) bilateral Appendectomy Family History Mother , 76 Personal history of malignant neoplasm MOUTH Heart disease Stroke Sister Essential hypertension Hyperlipidemia Brother Essential hypertension Lung cancer Grandfather Essential hypertension Heart disease Grandfather Diabetes Grandmother Stroke Sister No problems noted. Sister No problems noted. Sister No problems noted. Sister No problems noted. Brother No problems noted. Brother No problems noted. Brother No problems noted. Son Stroke Daughter No problems noted. Social History (Updated 12/27/23 @ 16:32 by Shital Marcos Smoking/Tobacco Use Status: Never Tobacco: How many years used: 10 Second Hand Exposure: Yes Smoking risk assessment performed?: Yes Alcohol Intake: current Alcohol Intake frequency: a few times a week Alcohol type: wine Drug use: Never Substance use type: does not use Details: alcohol: t-4, wine 4 oz Adopted: No Caregiver/Support person: No Foster care: No Household members: none Housing: house Number of Children: 2 number of grandchildren: 3 Education Level: college Details: BA+ some grad school Do you need help understanding health information?: Never Pets and animals: Yes Pets and animals: cat(s) and dog(s) Sexually active: No Do you think of yourself as: straight/heterosexual Current gender identity: female What is your relationship status?: How often do you talk on the phone with friends or family?: three or more times per week How often do you get together with friends or relatives?: three or more times per week How often do you attend evangelical or protestant services?: 1-3 times per year Do you belong to any clubs or organized social groups?: no Panel score (0-1 are the most socially isolated patients): 1 What type of physical activity do you participate in: walking Duration: 15-30 minutes/day Frequency: 3-4 times per week Evita/Anabaptism: No preference Special evita needs: No Agree to transfusion: Yes Seatbelt use: always Helmet use: No Drive intox or ride w/intox hearse driver: No Working smoke detector in home: Yes Carbon monox detector in home: Yes Firearms in home: No Do you feel safe at home: Yes Do you feel safe in your relationship?: Yes Victim of physical abuse: No Victim of emotional abuse: No Victim of sexual abuse: No
[2024-09-07] MEDS: Ondansetron 4 MG/2 ML VIAL IVP (12:16)
[2024-09-07] MEDS: Normal Saline 1,000 ML 1000 ML IV (12:16)
[2024-09-07 12:24] LABS: HCT 44.5 % (36.0-46.0); HGB 14.9 g/dL (11.2-15.7); MCH 30.1 pg (27.0-33.0); MCHC 33.5 % (32.0-36.0); MCV 90 fL (80-95); MPV 10.4 fL (8.0-11.0); Platelet Count 387 10^3/uL (130-400); RBC 4.95 10^6/uL (3.93-5.22); RDW-SD 42.6 fL; WBC 9.46 10^3/uL (4.4-10.8)
[2024-09-07 12:35] LABS: Absolute Lymphocyte Count 0.66 10^3/uL (1.2-3.4); Absolute Monocyte Count 0.76 10^3/uL (0.1-0.8); Absolute Neutrophil Count 8.04 10^3/uL (1.2-6.7); Atypical Lymphocytes % 1 %; Bands % 15 %; Diff Comment Manual Differential; RBC Morphology Normal
[2024-09-07 12:43] LABS: ALT 19 U/L (14-59); AST 13 U/L (15-37); Albumin 3.5 g/dL (3.4-5.0); Alkaline Phosphatase 93 U/L (46-116); Anion Gap 12.4 mmol/L (3-11); BUN 27 mg/dL (7-18); Bilirubin, Total 0.7 mg/dL (0.2-1.0); CO2 23.6 mmol/L (21.0-32.0); Calcium 9.7 mg/dL (8.5-10.1); Chloride 102 mmol/L (98-107); Estimated GFR 58.02 (mL/min/1.73m2); Glucose 156 mg/dL (74-106); Lipase 17 U/L (<78); Magnesium 1.6 mg/dL (1.8-2.4); Potassium 3.9 mmol/L (3.5-5.1); Sodium 138 mmol/L (136-145); Total Protein 7.5 g/dL (6.4-8.2)
[2024-09-07 12:52] LABS: COVID-19 PCR Negative (Negative); Influenza A PCR Negative (Negative); Influenza B PCR Negative (Negative); RSV PCR Negative (Negative)
[2024-09-07 12:53] LABS: Source Nasopharynx
== END 2024-09-07 14:05 | disposition home or self-care (01) ==
LOC: ER 14:06
PROVIDERS: Emergency Provider Emergency Medicine; PCP Family Medicine
DX: R11.2 Nausea with vomiting, unspecified (principal); R19.7 Diarrhea, unspecified
CPT/HCPCS: 36415; 80053; 83690; 87637; 96374; 99284; 83735; 85025; J2405

== ENCOUNTER 2024-09-28 09:12 | Outpatient (CLI) | payer MEDICARE, OTHER, SELFPAY ==
[2024-09-28 13:11] LABS: TSH (W/Ref FT4) 4.24 uIU/mL (0.36-3.74); Vitamin B12 744 pg/mL (193-986)
[2024-09-28 13:30] LABS: FREE T4 1.15 ng/dL (0.76-1.46)
[2024-09-28 18:29] LABS: Hepatitis C Ab w Rflx HCV PCR Negative (Negative)
== END 2024-09-28 09:13 | disposition home or self-care (01) ==
LOC: LOS 09:12
PROVIDERS: PCP Family Medicine; Referring Provider Family Medicine; Visit Provider Family Medicine
DX: E03.9 Hypothyroidism, unspecified (principal); K29.60 Other gastritis without bleeding; Z11.59 Encounter for screening for other viral diseases
CPT/HCPCS: 36415; 86803; 82607; 83036; 84439; 84443

== ENCOUNTER 2024-10-17 01:43 | Outpatient (CLI) | payer MEDICARE, OTHER, SELFPAY ==
--- NOTE | 2024-10-17 07:00 | DI.DEXA_ITS ---
Exam(s) XR DEXA BONE DENSITY W/WO MADALYN EXAM: XR DEXA BONE DENSITY W/WO MADALYN CLINICAL HISTORY: postmenopausal status, screening for osteoporosis,z78.0 TECHNIQUE: Routine DEXA evaluation of the lumbar spine, hip, or forearm. COMPARISON: No exams were available for comparison FINDINGS: Performed on a Hologic unit. Lateral image: Subtle suggestion of height loss at superior endplate of what appears to be L3 Lumbar Spine total T-score: -2.7 which is in the osteoporosis range Hip total T-score:Minus 1.8 which is osteopenia range Independent reading at the level of the femoral neck yields T-score of -2.2 which is osteopenia rang e Forearm total T-score: Performed IMPRESSION: Bone mineral density measures in the osteoporosis range for the lumbar spine. Fracture risk is high. The, on the lateral networking technician film there appears to be slight loss of height of superior endplate of wh at appears to be the L3 vertebral body. Hip is in the osteopenia range. Fracture risk of the hip is moderate. Note: Any spine fracture indicates 5x risk for subsequent spine fracture and 2x risk for subsequent h ip fracture. World Health Organization criteria for BMD interpretation classify patients: Normal...... T- Score at or above -1.0 Osteopenic... T- Score between -1.0 and -2.5 Osteoporosis... T-Score at or below -2.5
== END 2024-10-17 02:03 ==
LOC: DI 01:43
PROVIDERS: PCP Family Medicine; Visit Provider Family Medicine
DX: Z78.0 Asymptomatic menopausal state (principal); M81.0 Age-related osteoporosis without current pathological fracture
CPT/HCPCS: 77080

== ENCOUNTER 2024-10-19 08:26 | Outpatient (CLI) | payer MEDICARE, OTHER, SELFPAY ==
--- NOTE | 2024-10-19 08:15 | DI.RAD_ITS ---
Exam(s) XR RIBS LT W PA LAT CHEST EXAM: XR RIBS LT W PA LAT CHEST CLINICAL HISTORY: Fall on left ribs,[id number],pain. TECHNIQUE: 2D digital imaging was performed. COMPARISON: No exams were available for comparison FINDINGS: Total 6 views: Left ribs-four views: No obvious left rib fractures identified Chest-two views: Heart size normal. Moderate size retrocardiac hiatal hernia. Lungs are clear with no infiltrates nor pleural effusions. No pneumothorax. Right shoulder reverse prosthesis noted. IMPRESSION: No obvious left rib fractures. No acute pulmonary findings. No pneumothorax Moderate size retrocardiac hiatal hernia evident. DATA REPOSITORY: RADIATION DOSE DELIVERED:
== END 2024-10-19 08:46 ==
LOC: DI 08:26
PROVIDERS: PCP Family Medicine; Visit Provider Family Medicine
DX: W19.XXXA Unspecified fall, initial encounter (principal); K44.9 Diaphragmatic hernia without obstruction or gangrene
CPT/HCPCS: 71046; 71100

== ENCOUNTER 2025-03-27 14:25 | Outpatient (REF) | payer MEDICARE, OTHER, SELFPAY | END 2025-03-27 14:26 | disposition home or self-care (01) | LOC: LBN 14:25 | PROVIDERS: PCP Family Medicine; Visit Provider Nurse Practitioner Family | DX: N89.8 Other specified noninflammatory disorders of vagina (principal) | CPT/HCPCS: 87070; 87205; 87480; 87510; 87660 ==